=== PATIENT | female | born 1950 | race Caucasian/White ===

== ENCOUNTER 2022-04-16 23:37 | Emergency (ER) | payer MEDICARE, OTHER, SELFPAY ==
[2022-04-16 23:41] VITALS: BP 180/99; PULSE 70; RESP 22; TEMP 37.2; O2SAT 92; BMI 34.4
--- NOTE | 2022-04-16 23:54 | ECG_ITS ---
APPROVED REPORT Exam: Resting ECG HR:69 bpm ECG Measurements Heart Rate 69 AXES QRSd 133 QRS 205 QT 457 T 72 QTc 477 Conclusion ELECTRONIC VENTRICULAR PACEMAKER ABNORMAL RHYTHM ECG UNCONFIRMED REPORT Electronically signed by : Trev Basilio MD 04/17/2022 22:04:43
--- NOTE | 2022-04-17 | XR_ITS ---
PROCEDURE INFORMATION: Exam: XR Chest Exam date and time: 04/16/2022 11:56 PM Age: 71 years old Clinical indication: Shortness of breath; Prior surgery; Additional info: SOA TECHNIQUE: Imaging protocol: Radiologic exam of the chest. Views: 2 views. COMPARISON: No relevant prior studies available. FINDINGS: Tubes, catheters and devices: Pacemaker leads project over the expected location. Lungs: Bilateral apical scarring. Bibasilar opacities are most likely atelectasis. Pleural spaces: Unremarkable. No pleural effusion. No pneumothorax. Heart/Mediastinum: Enlarged pulmonary arteries likely represent chronic pulmonary arterial hypertension. Bones/joints: Old right rib fractures. IMPRESSION: Bibasilar opacities are most likely atelectasis. However, please exclude atypical infection clinically.
[2022-04-17 00:02] LABS: Basophils # 0.1 K/mm3 (0-0.2); Eosinophils # 0.1 K/mm3 (0.0-0.4); Eosinophils % 1.2 % (0.1-12.0); Hematocrit 46.8 % (37.0-47.0); Lymphocytes # 1.5 K/mm3 (0.7-4.5); Lymphocytes % 14.6 % (10-50); Mean Corpuscular HGB Conc 32.1 g/dL (31.8-35.4); Mean Corpuscular Volume 96.5 fl (81-99); Mean Platelet Volume 10.1 fl (7.4-10.4); Monocytes # 0.5 K/mm3 (0.1-1.0); Neutrophils # 8.1 K/mm3 (1.8-7.8); Neutrophils % 78.2 % (37.0-80.0); Platelet Count 254 K/mm3 (142-424); Red Blood Count 4.85 M/mm3 (4.20-5.40); White Blood Count 10.3 K/mm3 (4.8-10.8)
[2022-04-17 00:04] LABS: Chloride 106 mmol/L (98-107); Potassium 3.6 mmoL/L (3.5-5.1); Sodium 143 mmol/L (136-145)
[2022-04-17 00:07] LABS: Coronavirus 19, PCR Not Detected (NotDetected); Influenza A, PCR Not Detected (NotDetected); Influenza B, PCR Not Detected (NotDetected)
[2022-04-17 00:07] LABS: Alanine Aminotransferase 33 U/L (12-78); Albumin Level 4.1 g/dl (3.5-5.0); Albumin/Globulin Ratio 1.1 (1.1-1.8); Alkaline Phosphatase 145 U/L (38-126); Anion Gap 17.6 mEq/L (5-15); Aspartate Amino Transferase 42 U/L (14-36); Bilirubin,Total 0.4 mg/dl (0.2-1.3); Blood Urea Nitrogen 15 mg/dl (7-17); Carbon Dioxide 23 mmol/L (22.0-30.0); Creatinine Clearance Estimated 86 mL/min (50-200); Estimated Glomerular Filt Rate 61 ml/min (>60); GFR (African American) 74 ML/MIN (>60); Globulin 3.6 g/dL (1.3-3.2); Glucose 155 mg/dl (74-100); Total Protein,Serum 7.7 g/dl (6.3-8.2)
[2022-04-17 00:08] LABS: Calcium 9.7 mg/dl (8.4-10.2)
[2022-04-17 00:28] LABS: Erythrocyte Sedimentation Rate 45 mm/hr (0-30)
[2022-04-17 00:31] VITALS: PULSE 91; PULSE 92
--- NOTE | 2022-04-17 00:36 | HMH.EDSOB ---
Discharge Plan Disposition Patient Disposition: Home, Self-Care Prescriptions Prescriptions: New azithromycin [azithromycin] 250 mg tablet 250 mg PO DIRECTED Qty: 6 0RF Rx Instructions: Take two (2) tablets on day #1, then one (1) tablet day #2 thru #5 prednisone [prednisone] 20 mg tablet 20 mg PO BID Qty: 10 0RF No Action losartan 50 mg tablet 20 mg PO BID furosemide 40 mg tablet 40 mg PO DAILY Label Comments: TAKE 1 TABLET BY MOUTH ONCE DAILY ipratropium-albuterol 0.5 mg-3 mg(2.5 mg base)/3 mL solution for nebulization 1 ml INHALATION QID Label Comments: USE 1 AMPULE IN NEBULIZER 4 TIMES DAILY atorvastatin 10 mg tablet 10 mg PO DAILY sertraline 100 mg tablet 100 mg PO DAILY levothyroxine 75 mcg tablet 75 mcg PO DAILY metoprolol tartrate 50 mg tablet 50 mg PO BID zafirlukast 20 mg tablet 20 mg PO BID fluticasone propionate 50 mcg/actuation spray,suspension 2 spray INTRANASAL DAILY bupropion HCl 150 mg tablet extended release 24 hr 300 mg PO DAILY Label Comments: TAKE 1 TABLET BY MOUTH ONCE DAILY FOR 90 DAYS budesonide-formoterol [Symbicort] 160-4.5 mcg/actuation HFA aerosol inhaler 2 puff INHALATION BID Label Comments: INHALE 2 PUFFS BY MOUTH TWICE DAILY Xarelto 20 mg tablet 20 mg PO DAILY Spiriva Respimat 1.25 mcg/actuation mist 2 puff INHALATION DAILY Label Comments: INHALE 2 SPRAY(S) BY MOUTH ONCE DAILY Referrals Follow up/Referrals: Sondra Uribe APRN [Primary Care Provider] - See instructions Clinical Impressions Clinical Impression: Acute exacerbation of chronic obstructive airways disease Instructions Patient Instructions: DI for Chronic Obstructive Pulmonary Disease Discharge ED Provider: Zak Colón Resp/SOB HPI General Chief Complaint: Shortness of Breath/Dyspnea Stated Complaint: SOA; HX of COPD Time Seen by Provider: 04/17/22 00:36 Mode of Arrival: Wheelchair Source of Information: Patient, Spouse and Medical Record Limitations: No Limitations Description of Symptoms (Recalled from ER Triage Doc. by RN): pt c/o cough,congestion,SOA,fever since friday History of Present Illness over the last few days has cough and congestion with fever - hx of copd MD Complaint: shortness of breath and cough Severity: moderate Known history of: COPD and asthma Associated symptoms: pain with inspiration Treatment prior to arrival: none Related Data Home oxygen amount: none Home Medications Medication Instructions Recorded Confirmed atorvastatin 10 mg tablet 10 mg PO DAILY High cholesterol 04/16/22 04/17/22 budesonide-formoterol HFA 160 2 puff inhalation BID Breathing 04/16/22 04/17/22 mcg-4.5 mcg/actuation aerosol problems inhaler (Symbicort) bupropion HCl 150 mg 24 hr tablet, 300 mg PO DAILY deprerssion 04/16/22 04/17/22 extended release fluticasone propionate 50 2 spray intranasal DAILY Allergy 04/16/22 04/17/22 mcg/actuation nasal symptoms spray,suspension furosemide 40 mg tablet 40 mg PO DAILY Fluid 04/16/22 04/17/22 ipratropium 0.5 mg-albuterol 3 mg 1 ml inhalation QID Breathing 04/16/22 04/17/22 (2.5 mg base)/3 mL nebulization problems soln levothyroxine 75 mcg tablet 75 mcg PO DAILY thyorid 04/16/22 04/17/22 losartan 50 mg tablet 20 mg PO BID High blood pressure 04/16/22 04/17/22 metoprolol tartrate 50 mg tablet 50 mg PO BID High blood pressure 04/16/22 04/17/22 rivaroxaban 20 mg tablet (Xarelto) 20 mg PO DAILY Blood thinner 04/16/22 04/17/22 sertraline 100 mg tablet 100 mg PO DAILY Depression 04/16/22 04/17/22 tiotropium bromide 1.25 2 puff inhalation DAILY Breathing 04/16/22 04/17/22 mcg/actuation mist for inhalation problems (Spiriva Respimat) zafirlukast 20 mg tablet 20 mg PO BID Asthma 04/16/22 04/17/22 Previous Rx's Medication Instructions Recorded azithromycin 250 mg tablet 250 mg PO DIRECTED #6 tabs 04/17/22 pre
[2022-04-17 01:05] LABS: Troponin I < 0.01 ng/ml (0.00-0.034)
[2022-04-17 01:36] VITALS: BP 167/78; PULSE 90; RESP 20; TEMP 37.2; O2SAT 96
[2022-04-17 02:10] LABS: Procalcitonin 0.097 ng/mL (0.0-2.0)
== END 2022-04-17 02:01 | disposition home or self-care (01) ==
PROVIDERS: Emergency Provider Emergency Medicine; PCP Nurse Practitioner Family
DX: J44.1 Chronic obstructive pulmonary disease with (acute) exacerbation (principal); R01.1 Cardiac murmur, unspecified; Z20.822 Contact with and (suspected) exposure to COVID-19; Z79.01 Long term (current) use of anticoagulants; Z79.51 Long term (current) use of inhaled steroids; Z79.52 Long term (current) use of systemic steroids; Z79.899 Other long term (current) drug therapy; Z88.8 Allergy status to other drugs, medicaments and biological substances; Z95.0 Presence of cardiac pacemaker; Z87.891 Personal history of nicotine dependence
CPT/HCPCS: 71046; 80053; 84145; 84484; 85025; 85651; 93005; 96361; 96374; 99284; C9803; J0696; U0003; U0005

== ENCOUNTER 2022-04-28 18:35 | Observation (INO) | payer MEDICARE, OTHER, SELFPAY ==
[2022-04-28 18:36] VITALS: BP 138/76; PULSE 70; RESP 18; TEMP 36.5; O2SAT 96; BMI 37.5
[2022-04-28 19:58] VITALS: BMI 37.5
--- NOTE | 2022-04-28 19:59 | CT_ITS ---
PROCEDURE INFORMATION: Exam: CT Head Without Contrast Exam date and time: 04/28/2022 8:01 PM Age: 71 years old Clinical indication: Weakness, extremity and other: Lower legs weakness; Additional info: Stroke symptoms lower leg weakness TECHNIQUE: Imaging protocol: Computed tomography of the head without contrast. Radiation optimization: All CT scans at this facility use at least one of these dose optimization techniques: automated exposure control; mA and/or kV adjustment per patient size (includes targeted exams where dose is matched to clinical indication); or iterative reconstruction. COMPARISON: No relevant prior studies available. FINDINGS: Brain: Mild-moderate bilateral white matter hypodensities which are nonspecific but most commonly associated with chronic microvascular ischemia in this age group. The IACs are grossly normal. No extra-axial fluid collections. No evidence of acute intracranial hemorrhage. No CT evidence of large territory acute or subacute intracranial ischemia/infarct. No intracranial mass lesions. No midline shift or herniation. Cerebral ventricles: Mild compensatory ventriculomegaly secondary to central atrophy. Pituitary gland and sella: The sella is grossly normal. Paranasal sinuses: Mucosal thickening in the maxillary sinuses suggesting chronic sinus inflammatory disease. No fluid levels. Mastoid air cells: Visualized mastoid air cells are clear. Orbital cavities: No acute intraorbital findings. Prior bilateral ocular lens extraction. Bones/joints: No fractures. There is a 9 mm indeterminate lesion in the left parietal calvarium eroding the outer table, with a few scattered nonspecific small subcentimeter additional intra diploic foci elsewhere in the calvarium. Myeloma could produce this appearance, or possibly metastasis. Correlate with SPEP, consider nonemergent bone scan to exclude metastasis, particularly if there is history of primary malignancy. Hyperostosis frontalis interna incidentally noted. Soft tissues: The scalp and visualized soft tissues demonstrate no acute abnormality. Vasculature: Moderate calcific atherosclerosis. No asymmetric vascular hyperdensities suggestive of thrombosis are identified. Other findings: Mild-moderate generalized atrophy. Arnold-white differentiation is well maintained. IMPRESSION: 1. No acute intracranial process. No intracranial hemorrhage or mass effect. 2. Atrophy and nonspecific white matter hypodensities, most commonly related to chronic microvascular ischemia in this age group. 3. Moderate calcific atherosclerosis. 4. Scattered subcentimeter lytic bone lesions, largest 9 mm in the left parietal distribution. These are nonspecific but could be seen with myeloma or metastasis, please see recommendations above.
--- NOTE | 2022-04-28 20:27 | XR_ITS ---
PROCEDURE INFORMATION: Exam: XR Chest Exam date and time: 04/28/2022 8:42 PM Age: 71 years old Clinical indication: Other: Leg weakness TECHNIQUE: Imaging protocol: Radiologic exam of the chest. Views: 1 view. COMPARISON: CR XR CHEST 2V 04/16/2022 11:56 PM FINDINGS: Tubes, catheters and devices: Biventricular cardiac pacemaker again noted without gross hardware complication or change. Lungs: Moderately dilated central pulmonary vasculature bilaterally, unchanged, suggesting moderate pulmonary arterial hypertension. No gross pulmonary infiltrates or edema pattern. Poorly delineated cardiac apex again noted, with indistinct left lateral costophrenic angle probably relates to periapical fat pad and adjacent atelectasis, accentuated by lordotic projection on the current study. Peripheral left basilar pneumonia considered less likely. Pleural spaces: No definite pleural effusion. No pneumothorax. Heart/Mediastinum: Heart size normal. No tracheal/mediastinal shift. Bones/joints: No acute osseous abnormalities are identified. Old healed fracture right posterolateral 8th rib again noted. IMPRESSION: 1. No acute thoracic process. No significant change from 04/16/2022. 2. Moderate central pulmonary arterial dilatation consistent with pulmonary arterial hypertension. 3. Poorly delineated cardiac apex and left lateral costophrenic angle probably relates to periapical fat pad or subsegmental atelectasis, pneumonia considered less likely.
[2022-04-28 20:30] VITALS: BP 135/74; PULSE 69; O2SAT 92
[2022-04-28 20:37] LABS: Basophils # 0.1 K/mm3 (0-0.2); Basophils % 0.7 % (0.1-2.0); Eosinophils # 0.1 K/mm3 (0.0-0.4); Eosinophils % 0.4 % (0.1-12.0); Hematocrit 47.9 % (37.0-47.0); Hemoglobin 15.8 g/dL (12.2-16.2); Lymphocytes # 2.4 K/mm3 (0.7-4.5); Lymphocytes % 11.5 % (10-50); Mean Corpuscular HGB Conc 32.9 g/dL (31.8-35.4); Mean Corpuscular Hemoglobin 31.5 pg (27.0-31.2); Mean Corpuscular Volume 95.8 fl (81-99); Mean Platelet Volume 9.8 fl (7.4-10.4); Monocytes # 0.9 K/mm3 (0.1-1.0); Monocytes % 4.3 % (1.7-9.3); Platelet Count 329 K/mm3 (142-424); Red Cell Distribution Width 14.9 % (11.5-17.5)
[2022-04-28 20:45] LABS: Alanine Aminotransferase 25 U/L (12-78); Albumin Level 4.4 g/dl (3.5-5.0); Albumin/Globulin Ratio 1.2 (1.1-1.8); Alkaline Phosphatase 145 U/L (38-126); Anion Gap 18.8 mEq/L (5-15); Aspartate Amino Transferase 32 U/L (14-36); Bilirubin,Total 0.6 mg/dl (0.2-1.3); Blood Urea Nitrogen 25 mg/dl (7-17); Calcium 9.7 mg/dl (8.4-10.2); Carbon Dioxide 25 mmol/L (22.0-30.0); Chloride 103 mmol/L (98-107); Creatinine Clearance Estimated 57 mL/min (50-200); Estimated Glomerular Filt Rate 34 ml/min (>60); GFR (African American) 41 ML/MIN (>60); Globulin 3.6 g/dL (1.3-3.2); Glucose 123 mg/dl (74-100); Potassium 3.8 mmoL/L (3.5-5.1); Sodium 143 mmol/L (136-145)
[2022-04-28 20:48] LABS: White Blood Count 20.4 K/mm3 (4.8-10.8)
[2022-04-28 20:50] LABS: MANUAL DIFFERENTIAL MANUAL DIFFERENTIAL (MANUAL DIFF)
[2022-04-28 20:51] LABS: C-Reactive Protein 9.1 mg/L (0-4)
[2022-04-28 20:58] LABS: Lymphocytes % 18 % (10-50); Monocytes % 3 % (2-9); Neutrophils % 74 % (42-76); Total Cells Counted 100
[2022-04-28 20:59] LABS: Platelet Estimate Normal; RBC Morphology Normal
[2022-04-28 21:05] LABS: Procalcitonin 0.082 ng/mL (0.0-2.0)
[2022-04-28 21:11] LABS: Erythrocyte Sedimentation Rate 19 mm/hr (0-30)
--- NOTE | 2022-04-28 21:27 | PC.NURSE ---
Pt ambulatory to bathroom per 2 person assist. Pt very unsteady on her feet at this time.
[2022-04-28 21:28] LABS: Coronavirus 19, PCR Not Detected (NotDetected); Influenza A, PCR Not Detected (NotDetected); Influenza B, PCR Not Detected (NotDetected); Microscopic, Urine URINE MICROSCOPIC (MICROSCOPIC)
[2022-04-28 21:31] VITALS: BP 132/64; PULSE 70; O2SAT 96
[2022-04-28 21:32] LABS: Appearance,Urine CLEAR (Clear); Blood, Urine TRACE-I (Negative); Color,Urine YELLOW (Yellow); Glucose,Urine (UA) Negative (Negative); Ketones,Urine TRACE (Negative); Leukocyte Esterase,Urine 1+ (Negative); Nitrate,Urine Negative (Negative); PH,Urine 5.5 (5.0-8.5); Protein,Urine 2+ (Negative); Specific Gravity, Urine >= 1.030 (1.005-1.030); Urobilinogen,Urine 0.2 EU/dl (0.2)
[2022-04-28 21:34] LABS: Bilirubin,Urine 1+ (Negative)
[2022-04-28 21:44] LABS: Bacteria,Urine 1+ /lpf; RBC,Urine Occasional #/hpf (0-3); Squamous Epithelial Cell,Urine Occasional #/hpf (0-5)
[2022-04-28 22:01] VITALS: BP 112/49; PULSE 70; O2SAT 94
[2022-04-28 22:37] LABS: Lactic Acid 1.2 mmol/L (0.7-2.1)
--- NOTE | 2022-04-28 23:00 | HMH.EDWEAK ---
Discharge Plan Disposition Patient Disposition: Admitted as Observation Prescriptions Prescriptions: No Action losartan 50 mg tablet 20 mg PO BID furosemide 40 mg tablet 40 mg PO DAILY Label Comments: TAKE 1 TABLET BY MOUTH ONCE DAILY ipratropium-albuterol 0.5 mg-3 mg(2.5 mg base)/3 mL solution for nebulization 1 ml INHALATION QID Label Comments: USE 1 AMPULE IN NEBULIZER 4 TIMES DAILY atorvastatin 10 mg tablet 10 mg PO DAILY sertraline 100 mg tablet 100 mg PO DAILY levothyroxine 75 mcg tablet 75 mcg PO DAILY metoprolol tartrate 50 mg tablet 50 mg PO BID zafirlukast 20 mg tablet 20 mg PO BID fluticasone propionate 50 mcg/actuation spray,suspension 2 spray INTRANASAL DAILY bupropion HCl 150 mg tablet extended release 24 hr 300 mg PO DAILY Label Comments: TAKE 1 TABLET BY MOUTH ONCE DAILY FOR 90 DAYS budesonide-formoterol [Symbicort] 160-4.5 mcg/actuation HFA aerosol inhaler 2 puff INHALATION BID Label Comments: INHALE 2 PUFFS BY MOUTH TWICE DAILY Xarelto 20 mg tablet 20 mg PO DAILY Spiriva Respimat 1.25 mcg/actuation mist 2 puff INHALATION DAILY Label Comments: INHALE 2 SPRAY(S) BY MOUTH ONCE DAILY Referrals Follow up/Referrals: Provider,Referral, MD [Primary Care Provider] - See instructions Clinical Impressions Clinical Impression: Acute UTI (urinary tract infection), Hypothyroidism, Vertigo, Pacemaker Discharge ED Provider: Zak Colón Weakness HPI General Chief complaint: Weakness Stated complaint: AO 04/28 @1735 Time Seen by Provider: 04/28/22 23:00 Mode of Arrival: Ambulatory Source of Information: Patient, Spouse and Medical Record Limitations: No Limitations Description of Symptoms (Recalled from ER Triage Doc. by RN): pt states she went to leave bed and her feet kept slipping out from under her. pt state that she finaly got up and fell into a side table. pt states that she has a hx of stroke and it felt alot like this. the pt also states she has been sick for a few weeks now and hasnt been out of bed much History of Present Illness HPI Narrative: pt with dec ambulation and weakness with dizzyness - hx of cva - had recent copd exacerbation- no recent hx of cancer and had cva a few yrs ago Complaint: generalized weakness Onset (ago): hour(s) Duration: intermittent Migration: none Severity: moderate Exacerbating factors: movement Associated symptoms: denies other symptoms Related Data Home Medications Medication Instructions Recorded Confirmed atorvastatin 10 mg tablet 10 mg PO DAILY High cholesterol 04/16/22 04/28/22 budesonide-formoterol HFA 160 2 puff inhalation BID Breathing 04/16/22 04/28/22 mcg-4.5 mcg/actuation aerosol problems inhaler (Symbicort) bupropion HCl 150 mg 24 hr tablet, 300 mg PO DAILY deprerssion 04/16/22 04/28/22 extended release fluticasone propionate 50 2 spray intranasal DAILY Allergy 04/16/22 04/28/22 mcg/actuation nasal symptoms spray,suspension furosemide 40 mg tablet 40 mg PO DAILY Fluid 04/16/22 04/28/22 ipratropium 0.5 mg-albuterol 3 mg 1 ml inhalation QID Breathing 04/16/22 04/28/22 (2.5 mg base)/3 mL nebulization problems soln levothyroxine 75 mcg tablet 75 mcg PO DAILY thyorid 04/16/22 04/28/22 losartan 50 mg tablet 20 mg PO BID High blood pressure 04/16/22 04/28/22 metoprolol tartrate 50 mg tablet 50 mg PO BID High blood pressure 04/16/22 04/28/22 rivaroxaban 20 mg tablet (Xarelto) 20 mg PO DAILY Blood thinner 04/16/22 04/28/22 sertraline 100 mg tablet 100 mg PO DAILY Depression 04/16/22 04/28/22 tiotropium bromide 1.25 2 puff inhalation DAILY Breathing 04/16/22 04/28/22 mcg/actuation mist for inhalation problems (Spiriva Respimat) zafirlukast 20 mg tablet 20 mg PO BID Asthma 04/16/22 04/28/22 Allergies Allergy/AdvReac Type Severity Reaction Status Date / Time levofloxacin [From [facility]] Allergy Verified
--- NOTE | 2022-04-28 23:11 | ECG_ITS ---
APPROVED REPORT Exam: Resting ECG HR:69 bpm ECG Measurements Heart Rate 69 AXES QRSd 137 QRS 188 QT 474 T 30 QTc 494 Conclusion ELECTRONIC VENTRICULAR PACEMAKER ABNORMAL RHYTHM ECG UNCONFIRMED REPORT Electronically signed by : Terv Basilio MD 04/29/2022 19:45:36
[2022-04-29] VITALS (10 sets, daily range): BP systolic 125–177; BP diastolic 63–96; PULSE 69–80; RESP 16–21; TEMP 36.4–36.7; O2SAT 94–96; BMI 37.0
--- NOTE | 2022-04-29 00:02 | EXP.HP ---
History of Present Illness *Admission Date: 04/29/22 *Reason for visit:: Vertigo, difficulty ambulating *History of present illness: Ms. Crenshaw is a 71-year-old female with a past medical history that is positive for H/o CVA without residual, Atrial Fibrillation on chronic anticoagulation, h/o Melanoma, Hypertension, Hypothyroidism and Hyperlipidemia. She presents to [facility] due to an acute onset of difficulty walking and dizziness that occurred prior to presentation. She reports with her history of CVA she was concerned so she came into the ER immediately for evaluation. In the ER, the patient underwent a CT of the head without contrast that showed a 9 mm indeterminate lesion in the left parietal calvarium eroding the outter table. Urinalysis showed 1 plus bacteria, 1 plus leukoesterase and was negative for nitrates. CBC showed a WBC of 20.4, CRP was elevated at 9.1. Creatinine was elevated at 1.50. The patient will be admitted with initial impression: Abnormal CT head, Vertigo, UTI and JAZZ. MRI will be obtained for further evaluation, neuro checks will be performed. The patient will be given Fluids and antibiotics. The plan of care was discussed with the patient at bedside in the ER prior to admission. The patient verbalized understanding and agreement with the plan of care. [facility] Medical History (Updated 04/29/22 @ 15:25 by Pinky López MD) Atrial fibrillation COPD (chronic obstructive pulmonary disease) CVA (cerebral vascular accident) Hyperlipidemia Hypertension Hypothyroidism Hypothyroidism Melanoma Surgical History (Updated 04/29/22 @ 01:54 by Magalis Suazo RN) H/O dilation and curettage H/O laparoscopy H/O partial thyroidectomy H/O: hysterectomy History of tonsillectomy Previous back surgery Tubal ligation status Family History (Updated 04/29/22 @ 01:52 by Magalis Suazo RN) Kidney disease Sister Lung cancer Father Parkinsons Mother Social History (Updated 04/29/22 @ 01:54 by Magalis Suazo RN) Smoking Status: Former smoker alcohol intake: never current occupational status: retired Travel in the last 8 weeks: None Review of Systems Review of Systems Review of systems:: pertinent systems reviewed and negative unless documented below Constitutional Constitutional: Reports system reviewed and no additional complaints, except as documented Eyes Eyes: Reports system reviewed and no additional complaints, except as documented ENT Ears, Nose, Mouth, and Throat: Reports system reviewed and no additional complaints, except as documented, Reports disequilibrium and Reports dizziness *Cardiovascular Cardiovascular: Reports system reviewed and no additional complaints, except as documented *Respiratory Respiratory: Reports system reviewed and no additional complaints, except as documented *Gastrointestinal Gastrointestinal: Reports system reviewed and no additional complaints, except as documented *Genitourinary Genitourinary: Reports system reviewed and no additional complaints, except as documented *Musculoskeletal Musculoskeletal: Reports system reviewed and no additional complaints, except as documented and Reports abnormal gait Integumentary/Breasts Skin/Breast: Reports system reviewed and no additional complaints, except as documented *Neurologic Neurologic: Reports abnormal gait, Reports disequilibrium, Reports dizziness and Reports lack of coordination Psychiatric Psychiatric: Reports system reviewed and no additional complaints, except as documented Endocrine Endocrine: Reports system reviewed and no additional complaints, except as documented Hematologic/Lymphatic Hematologic/Lymphatic: Reports system reviewed and no additional complaints, except as documented Allergic/Immunologic Allergic/Immunologic: Reports system reviewed and no additional complaints, except as documented Meds Home Medications and Allergies Home Medications Medication Instructions Rec
--- NOTE | 2022-04-29 01:18 | PC.NURSE ---
PT ARRIVED TO FLOOR VIA WHEELCHAIR AT THIS TIME
--- NOTE | 2022-04-29 07:12 | PC.NURSE ---
Addendum entered by Magalis Suazo RN 04/29/22 07:34: Pt is supposed to have an MRI today. Pts home meds locked in drawer. Original Note: No acute changes since previous assessment. IV infusing per order. Pt has rested in intervals. No complaints or needs voiced by pt at this time. Call light in reach. Bed alarm on for safety. Pt is x1 assist with ambulating.
--- NOTE | 2022-04-29 07:15 | HMH.PHAINT1 ---
Pharmacy Intervention Comments: Medication reconciliation completed via external fill history, chart review, and patient interview. -Brandy Oates, PharmD Candidate 2022
--- NOTE | 2022-04-29 13:28 | CT_ITS ---
FINAL REPORT TECHNIQUE: Axial images were obtained from the lung apex to the mid abdomen by computed tomography. Coronal reformatted images were obtained. This study was performed with techniques to keep radiation doses as low as reasonably achievable, (ALARA). Individualized dose reduction techniques using automated exposure control or adjustment of mA and/or kV according to the patient''s size were employed. CLINICAL HISTORY: suspect malignancy FINDINGS: A left subclavian pacemaker is present. There is no axillary adenopathy. There is no hilar or mediastinal adenopathy. Heart size is normal. There are postoperative changes at the atrial septum. There is no pericardial or pleural effusion. Limited images of the upper abdomen are unremarkable. No pulmonary mass or suspicious nodule is identified. There are several small calcified granulomas. There is mild scarring in the left lung base. IMPRESSION: No pulmonary mass or suspicious nodule is identified. Reviewed, Interpreted and Dictated by Hi Payan III, MD Transcribed by Renee Lopez Authenticated and . [facility]
--- NOTE | 2022-04-29 13:28 | CT_ITS ---
FINAL REPORT CLINICAL HISTORY: suspect malignancy FINDINGS: Axial CT images of the abdomen and pelvis were obtained without intravenous contrast. Coronal reformatted images were also obtained.This study was performed with techniques to keep radiation doses as low as reasonably achievable (ALARA). Individualized dose reduction techniques using automated exposure control or adjustment of mA and/or kV according to the patient's size were employed. Abdomen: There is a less than 3 mm nonobstructing left renal stone. There is no hydronephrosis. There is a gallstone within the gallbladder. There is no biliary ductal dilatation. The liver, spleen and pancreas have an unremarkable, unenhanced appearance. No inflammatory process is identified. Pelvis: The appendix is normal in appearance. There is no evidence of ureteral dilation or ureteral stone.No mass or abnormal fluid collection is identified. There are postoperative changes from hysterectomy. There are postoperative changes in the lower lumbar spine from fusion at L4-5. IMPRESSION: No mass, adenopathy or abnormal fluid collection is identified. Less than 3 mm nonobstructing left renal stone. Gallstone in the gallbladder. Reviewed, Interpreted and Dictated by Hi Payan III, MD Transcribed by Renee Lopez Authenticated and [facility]
--- NOTE | 2022-04-29 15:58 | PC.NURSE ---
STOP IVMF NOW PER OSCAR
--- NOTE | 2022-04-29 18:30 | PC.NURSE ---
PT HAS DONE WELL THIS SHIFT. X1 C/O NAUSEA TREATED PER AUG. PT STILL C/O OF DIZZINESS, X1 ASSIST WITH AMBULATING. HOME MEDS VERIFIED WITH PHARMACY AND IN THE [facility], REMAINDER OF MEDS SENT HOME WITH . LUNGS DIMINISHED T/O. PT TEARFUL AT TIMES. AT BEDSIDE. CB WITHIN REACH. NO CONCERNS VOICED AT THIS TIME.
[2022-04-30 03:49] VITALS: BP 132/71; PULSE 70; RESP 16; TEMP 36.6; O2SAT 96
--- NOTE | 2022-04-30 04:27 | PC.NURSE ---
no changes since previous assessment. pt ambulates to bathroom with assistance, appears unsteady. she is a&oX4.
[2022-04-30 06:00] VITALS: BMI 37.5
[2022-04-30 06:05] VITALS: PULSE 70; PULSE 74
[2022-04-30 07:01] LABS: Basophils # 0.1 K/mm3 (0-0.2); Basophils % 0.5 % (0.1-2.0); Eosinophils # 0.1 K/mm3 (0.0-0.4); Eosinophils % 0.9 % (0.1-12.0); Hematocrit 39.1 % (37.0-47.0); Hemoglobin 12.4 g/dL (12.2-16.2); Lymphocytes # 2.4 K/mm3 (0.7-4.5); Lymphocytes % 24.9 % (10-50); Mean Corpuscular HGB Conc 31.7 g/dL (31.8-35.4); Mean Corpuscular Hemoglobin 31.5 pg (27.0-31.2); Mean Corpuscular Volume 99.3 fl (81-99); Mean Platelet Volume 9.7 fl (7.4-10.4); Monocytes # 0.6 K/mm3 (0.1-1.0); Monocytes % 6.1 % (1.7-9.3); Neutrophils # 6.5 K/mm3 (1.8-7.8); Neutrophils % 67.6 % (37.0-80.0); Platelet Count 187 K/mm3 (142-424); Red Blood Count 3.94 M/mm3 (4.20-5.40); White Blood Count 9.6 K/mm3 (4.8-10.8)
[2022-04-30 07:18] LABS: Alanine Aminotransferase 22 U/L (12-78); Albumin Level 3.4 g/dl (3.5-5.0); Albumin/Globulin Ratio 1.1 (1.1-1.8); Alkaline Phosphatase 105 U/L (38-126); Anion Gap 13.8 mEq/L (5-15); Aspartate Amino Transferase 34 U/L (14-36); Bilirubin,Total 0.3 mg/dl (0.2-1.3); Blood Urea Nitrogen 22 mg/dl (7-17); Calcium 8.7 mg/dl (8.4-10.2); Carbon Dioxide 25 mmol/L (22.0-30.0); Chloride 107 mmol/L (98-107); Creatinine Clearance Estimated 71 mL/min (50-200); Estimated Glomerular Filt Rate 44 ml/min (>60); GFR (African American) 53 ML/MIN (>60); Globulin 3.1 g/dL (1.3-3.2); Glucose 116 mg/dl (74-100); Magnesium 1.8 mg/dl (1.6-2.3); Potassium 3.8 mmoL/L (3.5-5.1); Sodium 142 mmol/L (136-145); Total Protein,Serum 6.5 g/dl (6.3-8.2)
[2022-04-30 07:47] VITALS: BP 141/70; PULSE 70; RESP 17; TEMP 36.5; O2SAT 95
--- NOTE | 2022-04-30 07:50 | HMH.PTEV ---
Physical Therapy Evaluation Rehab PT IP Evaluation Start: 04/30/22 07:13 Freq: ONCE Status: Active Protocol: Document 04/30/22 07:44 CECILIOTEJINDER (Rec: 04/30/22 07:50 CHIQUIS [id number]) Subjective/History History History Ms. Crenshaw is a 71-year-old female with a past medical history that is positive for H /o CVA without residual, Atrial Fibrillation on chronic anticoagulation, h/o Melanoma , Hypertension, Hypothyroidism and Hyperlipidemia. She presents to [facility] due to an acute onset of difficulty walking and dizziness that occurred prior to presentation. She reports with her history of CVA she was concerned so she came into the ER immediately for evaluation. In the ER, the patient underwent a CT of the head without contrast that showed a 9 mm indeterminate lesion in the left parietal calvarium eroding the outter table. Copied from H&P Subjective Subjective Pt sitting EOB upon entering bed - pt has no significant complaints does state she gets dizzy when she changes position, and doesn't really walk well Rehab PT IP Eval Objective Appearance Patient Behavior Appropriate,Cooperative Patient Orientation Place,Name,Birthday,Year, Situation Difficulty following instructions none Speech Pattern Clear,Appropriate Ambulation Patient Able to Ambulate Yes Ambulation Observation IP General Gait Pattern Observation Wide Based Gait,Ataxic Gait Ambulation Distance (feet) 60 Ambulation Assistive Device None Ambulation Ability Supervision/Stand by,Contact Guard/Hand Hold Balance Ability to Arise Able, uses arms to help Sitting Balance Steady, safe Standing Balance Steady, wide stance Dynamic Sitting Balance Ability Good Dynamic Standing Balance Ability Fair Transfers Bed Transfer Ability Independent Chair Transfer Ability Indep
--- NOTE | 2022-04-30 09:14 | HMH.OTEV ---
OT Inpatient Evaluation Rehab OT IP Evaluation Start: 04/30/22 07:14 Freq: ONCE Status: Complete Protocol: Document 04/30/22 09:09 RUY (Rec: 04/30/22 09:13 [facility] [id number]) Rehab OT IP Assessment Subjective History Pt oriented x 4 on arrival. Pt agreeable to engage in therapy evaluation. Pt was admitted via ED on 04/29/22 due to vertigo, dizziness, and difficulty walking. Pt reports prior to being in the hospital, pt lived at home with her . Pt claims she was independent with all ADLs and IADLs. Pt also still drove. She did not use any type of AE during ambulation. Pt has a past medical history of: Atrial fibrillation COPD (chronic obstructive pulmonary disease) CVA (cerebral vascular accident) Hyperlipidemia Hypertension Hypothyroidism Hypothyroidism Melanoma Subjective I feel better this morning. Objective Patient Orientation Person,Place,Birthday,Year Upper Extremity Gross ROM WFL Bed Mobility bed mobility-scooting,bed mobility - supine/sit,bed mobility - rolling Assist Level Independent Transfer Training Sit/Stand Transfer Assist Level Supervision/Stand by Chair Transfer Ability Supervision/Stand by Chair Transfer Technique Sit to/from Ambulatory Lower Body Dressing Ability Independent Performing Toilet Hygiene Ability Independent Overall Commode/Toilet Transfer Ability Standby Assistance Commode/Toilet Transfer Technique Sit to/from Ambulatory Rehab OT IP prob,goals,plan Problems Date of Evaluation: 04/30/22 Rehab Potential Rehab Potential Innapropriate for Skilled Therapy Discharge Plan OT Discharge Plan At this time, pt appears to be at baseline with functional transfers and ADL independence . Pt can return home with and daughter once
[2022-04-30 10:11] VITALS: PULSE 71
--- NOTE | 2022-04-30 12:48 | EXP.DC.SUM ---
General Admission date:: 04/29/22 Discharge date: 04/30/22 HPI HPI HPI: Ms. Crenshaw is a 71-year-old female with a past medical history that is positive for H/o CVA without residual, Atrial Fibrillation on chronic anticoagulation, h/o Melanoma, Hypertension, Hypothyroidism and Hyperlipidemia. She presents to [facility] due to an acute onset of difficulty walking and dizziness that occurred prior to presentation. She reports with her history of CVA she was concerned so she came into the ER immediately for evaluation. In the ER, the patient underwent a CT of the head without contrast that showed a 9 mm indeterminate lesion in the left parietal calvarium eroding the outter table. Urinalysis showed 1 plus bacteria, 1 plus leukoesterase and was negative for nitrates. CBC showed a WBC of 20.4, CRP was elevated at 9.1. Creatinine was elevated at 1.50. The patient will be admitted with initial impression: Abnormal CT head, Vertigo, UTI and JAZZ. MRI will be obtained for further evaluation, neuro checks will be performed. The patient will be given Fluids and antibiotics. The plan of care was discussed with the patient at bedside in the ER prior to admission. The patient verbalized understanding and agreement with the plan of care. Hospital Course Hospital Course Hospital Course: Patient was evaluated emergency department for acute dizziness and inability to walk. Incidental CT findings had demonstrated multiple lytic lesions and a hyperostotic lesion in the skull. Findings were concerning for myeloma versus possible metastasis or Paget's disease of the bone. CT abdomen pelvis was performed to evaluate for malignancy and no mass was found. Was a less than 3 mm nonobstructing left renal stone and gallstone in gallbladder. Chest x-ray showed no mass or concerning nodule. Findings were discussed with patient and oncology was consulted while admitted. Oncology recommended additional follow-up with for metastatic disease with nuclear bone scan and myeloma studies/SPEP UPE to be perfomed on an outpatient basis. Patient was scheduled for follow-up with oncology and further testing. Exam Data for Last 24 hours Vital signs and Labs for Last 24 Hours: Temp Pulse Resp BP Pulse Ox 97.7 F 71 17 141/70 H 95 04/30/22 07:47 04/30/22 10:11 04/30/22 07:47 04/30/22 07:47 04/30/22 07:47 Laboratory Results - last 24 hr 04/30/22 06:51: WBC 9.6 D, RBC 3.94 L, Hgb 12.4, Hct 39.1, MCV 99.3 H, MCH 31.5 H, MCHC 31.7 L, RDW 15.0, Plt Count 187 D, MPV 9.7, Neut % (Auto) 67.6, Lymph % (Auto) 24.9, [place] % (Auto) 6.1, Eos % (Auto) 0.9, Baso % (Auto) 0.5, Neut # (Auto) 6.5, Lymph # (Auto) 2.4, Wythe # (Auto) 0.6, Eos # (Auto) 0.1, Baso # (Auto) 0.1 04/30/22 06:51: Sodium 142, Potassium 3.8, Chloride 107, Carbon Dioxide 25, Anion Gap 13.8, BUN 22 H, Creatinine 1.20 H, Estimated Creat Clear 71, Estimated GFR 44 L, Est GFR ( Amer) 53 L D, Glucose 116 H, Calcium 8.7, Magnesium 1.8, Total Bilirubin 0.3, AST 34, ALT 22, Alkaline Phosphatase 105, Total Protein 6.5, Albumin 3.4 L D, Globulin 3.1, Albumin/Globulin Ratio 1.1 I & O for Last 24 hours: Intake & Output 04/27/22 04/28/22 04/29/22 04/30/22 23:59 23:59 23:59 23:59 Intake Total 1160 / 1160 420 / 420 Output Total 0 / 0 0 / 0 Balance 1160 / 1160 420 / 420 Weight 108.862 kg 107 kg 108.55 kg Microbiology Reports for the Last 24 Hours: Microbiology 04/28/22 22:23 Blood Blood Culture - Preliminary 04/28/22 21:18 Urine,Clean Catch Urine Culture - Preliminary Constitutional Constitutional: no acute distress Comments: Anxious *Routine HEENT Exam Head: Present normocephalic and atraumatic ENT: Present mucous membranes moist *Routine Respiratory Exam Respiratory: Present CTA bilaterally and normal respiratory effort *Routine Cardiovascular Exam Cardiovascular: Present RRR, Normal S1 and Normal S2 *Routine Abdominal Exam Abdominal: Present soft and
--- NOTE | 2022-04-30 13:08 | PC.NURSE ---
is aware of the aerobic blood culture coming back as staph species
--- NOTE | 2022-04-30 13:43 | HMH.PHAINT1 ---
Pharmacy Intervention Comments: Discharge counseling completed at bedside with patient and . Discussed new medication (cefdinir) and continued medications. Overviewed indication for cefdinir (UTI) and possible side effects/mitigation strategies. Patient and verbalize understanding and have no questions or concerns at this time.
[2022-04-30 19:17] LABS: Albumin 3.2 g/dL (2.9-4.4); Alpha-1-Globulin 0.3 g/dL (0.0-0.4); Alpha-2-Globulin 0.8 g/dL (0.4-1.0); Calcium, Ionized 5.4 mg/dL (4.5-5.6); Protein, Total 6.4 g/dL (6.0-8.5)
[2022-05-01 08:15] LABS: Peripheral Smear Review Scanned Result
[2022-05-01 15:33] LABS: Immunoglobulin A, Qn 403 mg/dL (64-422); Immunoglobulin G, Qn 988 mg/dL (586-1602); Immunoglobulin M, Qn 133 mg/dL (26-217)
--- NOTE | 2022-05-01 16:00 | CARE MANAGER ---
Spoke with patient for post-discharge phone interview, she states that she is doing well and has no issues at this time.
[2022-05-06 13:34] LABS: Albumin, U 51.2 % (.); Alpha-1-Globulin, U 1.3 % (.); Alpha-2-Globulin, U 8.4 % (.); Beta Globulin, U 18.6 % (.); Gamma Globulin, U 20.6 % (.); M-Spike, % Not Observed % (Not Observed); Protein,Total,Urine 129.1 mg/dL (Not Estab.)
== END 2022-04-30 13:59 | disposition home or self-care (01) ==
LOC: ER 23:23 → 2ND 04-29 00:37
PROVIDERS: Internal Medicine Adolescent Medicine; Nurse Practitioner Family; Admitting Provider Student in an Organized Health Care Education/Training Program; Emergency Provider Emergency Medicine; Visit Provider Student in an Organized Health Care Education/Training Program
DX: N17.9 Acute kidney failure, unspecified (principal); I48.91 Unspecified atrial fibrillation; Z79.01 Long term (current) use of anticoagulants; E78.5 Hyperlipidemia, unspecified; I10 Essential (primary) hypertension; E03.9 Hypothyroidism, unspecified; N39.0 Urinary tract infection, site not specified; C90.00 Multiple myeloma not having achieved remission; C44.99 Other specified malignant neoplasm of skin, unspecified; Z79.899 Other long term (current) drug therapy; Z20.822 Contact with and (suspected) exposure to COVID-19
CPT/HCPCS: G0378; 36415; 70450; 71045; 71250; 74176; 80053; 81001; 82330; 82784; 83605; 83735; 84145; 84155; 84156; 84165; 84166; 85007; 85025; 85651; 86140; 86334; 87040; 87077; 87086; 87088; 87186; 93005; 94640; 97166; 99285; C9803; J0696; J2405; U0003; U0005

== ENCOUNTER → 2022-05-13 07:54 | Outpatient (CLI) | payer MEDICARE, OTHER, SELFPAY ==
--- NOTE | 2022-05-13 08:03 | NM_ITS ---
FINAL REPORT CLINICAL HISTORY: BONE LESION on C.T .head scan, MULTIPLE MYELOMA FINDINGS: EXISTING RELEVANT IMAGING STUDIES: CT head April 28, 2022 TECHNIQUE: The patient was injected with 24.7 mCi of technetium 99-[id number]. 3 hour delayed images were obtained. FINDINGS: There is increased tracer activity in the shoulders, knees, feet, wrists and several foci in the thoracic and lumbar spines consistent with degenerative change. There is no definite abnormality of the calvarium. No other abnormal tracer activity is identified to suggest occult fracture or metastatic disease. IMPRESSION: No findings to indicate metastatic bone disease. Reviewed, Interpreted and Dictated by Hi Payan III, MD Transcribed by Arturo Mobley Authenticated and [facility]
== END ==
PROVIDERS: PCP Nurse Practitioner Family; Visit Provider Internal Medicine Medical Oncology
DX: Z85.820 Personal history of malignant melanoma of skin (principal); M89.9 Disorder of bone, unspecified
CPT/HCPCS: 78306; A9503

== ENCOUNTER → 2022-11-22 08:48 | Outpatient (CLI) | payer MEDICARE, OTHER, SELFPAY ==
[2022-11-22 09:33] LABS: Basophils % 0.4 % (0.1-2.0); Eosinophils # 0.1 K/mm3 (0.0-0.4); Eosinophils % 1.1 % (0.1-12.0); Hematocrit 47.4 % (37.0-47.0); Hemoglobin 14.9 g/dL (12.2-16.2); Lymphocytes # 1.7 K/mm3 (0.7-4.5); Lymphocytes % 23.4 % (10-50); Mean Corpuscular HGB Conc 31.5 g/dL (31.8-35.4); Mean Corpuscular Volume 98.4 fl (81-99); Mean Platelet Volume 10.1 fl (7.4-10.4); Monocytes # 0.5 K/mm3 (0.1-1.0); Monocytes % 6.8 % (1.7-9.3); Neutrophils % 68.2 % (37.0-80.0); Platelet Count 219 K/mm3 (142-424); Red Blood Count 4.81 M/mm3 (4.20-5.40); Red Cell Distribution Width 13.8 % (11.5-17.5); White Blood Count 7.3 K/mm3 (4.8-10.8)
[2022-11-22 09:40] LABS: Alanine Aminotransferase 31 U/L (12-78); Albumin Level 4.1 g/dl (3.5-5.0); Albumin/Globulin Ratio 1.3 (1.1-1.8); Alkaline Phosphatase 93 U/L (38-126); Anion Gap 18.5 mEq/L (5-15); Aspartate Amino Transferase 39 U/L (14-36); Bilirubin,Total 0.7 mg/dl (0.2-1.3); Blood Urea Nitrogen 30 mg/dl (7-17); Calcium 8.8 mg/dl (8.4-10.2); Carbon Dioxide 20 mmol/L (22.0-30.0); Chloride 107 mmol/L (98-107); Estimated Glomerular Filt Rate 54 ml/min (>60); GFR (African American) 66 ML/MIN (>60); Globulin 3.1 g/dL (1.3-3.2); Glucose 121 mg/dl (74-100); Potassium 4.5 mmoL/L (3.5-5.1); Sodium 141 mmol/L (136-145); Total Protein,Serum 7.2 g/dl (6.3-8.2)
== END ==
PROVIDERS: PCP Nurse Practitioner Family; Visit Provider Internal Medicine Medical Oncology
DX: R90.0 Intracranial space-occupying lesion found on diagnostic imaging of central nervous system (principal)
CPT/HCPCS: 36415; 80053; 85025

== ENCOUNTER → 2022-11-25 08:41 | Outpatient (CLI) | payer MEDICARE, OTHER, SELFPAY ==
--- NOTE | 2022-11-25 08:47 | CT_ITS ---
FINAL REPORT TECHNIQUE: Multiple axial CT sections were performed from the foramen magnum to the vertex. Coronal reformatted images were also obtained. Precontrast and postcontrast injection images were obtained. This study was performed with technique to keep radiation doses as low as reasonably achievable, (ALARA). Individualized dose reduction techniques using automated exposure control or adjustment of mA and/or kV according to the patient size were employed. CLINICAL HISTORY: BRAIN LESION COMPARISON: 04/29/2022 FINDINGS: Pre infused imaging demonstrates mild decreased attenuation in the deep white matter bilaterally likely related to chronic microvascular ischemia. The ventricles are normal in size. There is no evidence of hemorrhage. No masses are identified. No extra-axial fluid collection is seen. The sinuses are normal. No osseous abnormality is seen on the bone window images. Postcontrast images demonstrate no abnormal enhancement. Small lucencies are seen in the calvarium, particularly near the vertex which are unchanged from prior exam. There is abnormal soft tissue in the inferior left orbit with postoperative change. IMPRESSION: Unremarkable CT of the head with and without contrast. Reviewed, Interpreted and Dictated by Jordan Cali MD Transcribed by Constanza Elizondo Authenticated and [facility]
== END ==
PROVIDERS: PCP Nurse Practitioner Family; Visit Provider Internal Medicine Medical Oncology
DX: M89.9 Disorder of bone, unspecified (principal); G93.9 Disorder of brain, unspecified
CPT/HCPCS: 70470; Q9966

== ENCOUNTER 2023-01-21 10:03 | Observation (INO) | payer MEDICARE, OTHER, SELFPAY ==
[2023-01-21] VITALS (15 sets, daily range): BP systolic 96–158; BP diastolic 54–78; PULSE 67–77; RESP 16–20; TEMP 36.6–36.7; O2SAT 95–98; BMI 30.4; BMI 32.7
--- NOTE | 2023-01-21 10:26 | CT_ITS ---
FINAL REPORT TECHNIQUE: Thin section axial CT with IV contrast supplemented with multiplanar reconstruction under CT angiogram protocol. This study was performed with techniques to keep radiation doses as low as reasonably achievable (ALARA). Individualized dose reduction techniques using automated exposure control or adjustment of mA and/or kV according to the patient's size were employed. NASCET criteria was utilized during interpretation. CLINICAL HISTORY: dizziness, off balance, h/o stroke COMPARISON: None FINDINGS: Aortic arch: Arch shows no significant narrowing. Great vessel origins are widely patent. Right carotid: No significant stenosis is seen of the cervical common or internal carotid artery. Left carotid: There is mild common carotid artery stenosis on the left side involving a long segment of the mid and distal carotid artery. Also of note is that the left thyroid is absent or has been surgically removed. Vertebral: Left vertebral artery is dominant. No significant stenosis is present. IMPRESSION: Mild common carotid artery stenosis on the left side involving a long segment of the mid and distal carotid artery. 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 Reviewed, Interpreted and Dictated by Hi Payan III, MD Transcribed by Yue Martinez Authenticated and . [facility]
--- NOTE | 2023-01-21 10:26 | CT_ITS ---
FINAL REPORT CLINICAL HISTORY: dizziness, off balance, h/o stroke COMPARISON: 11/25/2022 FINDINGS: Axial images of the head were obtained without contrast. Coronal and sagittal reformatted images were also obtained. This study was performed with techniques to keep radiation doses as low as reasonably achievable (ALARA). Individualized dose reduction techniques using automated exposure control or adjustment of mA and/or kV according to the patient's size were employed. There is generalized age appropriate atrophy. There is no evidence of intracranial hemorrhage or mass. The ventricular size is within normal limits. There is no evidence of shift of the midline structures. There are postoperative changes present involving the left orbital floor. IMPRESSION: No acute intracranial abnormality. Reviewed, Interpreted and Dictated by Hi Payan III, MD Transcribed by Yue Martinez Authenticated and [facility]
--- NOTE | 2023-01-21 10:26 | CT_ITS ---
FINAL REPORT TECHNIQUE: Thin section axial CT with IV contrast supplemented with multiplanar reconstruction under CT angiogram protocol. 3-D reconstructions were performed. This study was performed with techniques to keep radiation doses as low as reasonably achievable (ALARA). Individualized dose reduction techniques using automated exposure control or adjustment of mA and/or kV according to the patient's size were employed. CLINICAL HISTORY: dizziness, off balance, h/o stroke COMPARISON: None FINDINGS: The distal vertebral, basilar and distal internal carotid arteries have an unremarkable appearance. No aneurysm is seen. Major intracranial vessels are patent without significant stenosis. IMPRESSION: No intracranial vascular abnormality identified. Reviewed, Interpreted and Dictated by Hi Payan III, MD Transcribed by Yue Martinez Authenticated and [facility]
--- NOTE | 2023-01-21 10:26 | CT_ITS ---
FINAL REPORT TECHNIQUE: Postcontrast axial images through the abdomen and pelvis were performed. This study was performed with techniques to keep radiation doses as low as reasonably achievable, (ALARA). Individualized dose reduction techniques using automated exposure control or adjustment of mA and/or kV according to the patient's size were employed. CLINICAL HISTORY: dizziness, off balance, h/o stroke COMPARISON: 04/29/2022 FINDINGS: Abdomen: The lung bases are clear. The liver is normal in size and attenuation. There are gallstones in the gallbladder. The spleen is mildly enlarged measuring 13.4 cm. The adrenals are normal. The pancreas is unremarkable. The kidneys enhance appropriately. The aorta is normal in caliber. No free fluid or adenopathy is identified. No findings for mechanical bowel obstruction are identified. Pelvis: The appendix is normal. There are multiple sigmoid diverticula. The patient is status post hysterectomy. The urinary bladder is unremarkable. No free fluid, free air, abscess or adenopathy is identified. There are degenerative and postoperative changes in the lumbar spine. IMPRESSION: Cholelithiasis. Mild splenomegaly. Reviewed, Interpreted and Dictated by Hi Payan III, MD Transcribed by Ning Dye Authenticated and . [facility]
[2023-01-21 11:13] LABS: Basophils % 0.3 % (0.1-2.0); Eosinophils % 0.5 % (0.1-12.0); Hematocrit 43.5 % (37.0-47.0); Hemoglobin 13.9 g/dL (12.2-16.2); Lymphocytes # 1.7 K/mm3 (0.7-4.5); Lymphocytes % 20.7 % (10-50); Mean Corpuscular Hemoglobin 31.2 pg (27.0-31.2); Mean Corpuscular Volume 97.6 fl (81-99); Mean Platelet Volume 9.8 fl (7.4-10.4); Monocytes # 0.7 K/mm3 (0.1-1.0); Monocytes % 8.3 % (1.7-9.3); Neutrophils # 5.9 K/mm3 (1.8-7.8); Neutrophils % 70.2 % (37.0-80.0); Platelet Count 211 K/mm3 (142-424); Red Blood Count 4.46 M/mm3 (4.20-5.40); White Blood Count 8.4 K/mm3 (4.8-10.8)
[2023-01-21 11:19] LABS: Activated Partial Thrombo Time 29.1 seconds (22.8-30.6); INR 1.27 (0.9-1.1); Prothrombin Time 13.5 seconds (10.1-12.5)
[2023-01-21 11:24] LABS: Alanine Aminotransferase 30 U/L (12-78); Albumin Level 3.6 g/dl (3.5-5.0); Albumin/Globulin Ratio 1.1 (1.1-1.8); Alkaline Phosphatase 98 U/L (38-126); Anion Gap 10.4 mEq/L (5-15); Aspartate Amino Transferase 35 U/L (14-36); Bilirubin,Total 0.6 mg/dl (0.2-1.3); Blood Urea Nitrogen 16 mg/dl (7-17); Calcium 8.6 mg/dl (8.4-10.2); Carbon Dioxide 26 mmol/L (22.0-30.0); Chloride 109 mmol/L (98-107); Creatinine Clearance Estimated 71 mL/min (50-200); Estimated Glomerular Filt Rate 61 ml/min (>60); GFR (African American) 74 ML/MIN (>60); Globulin 3.4 g/dL (1.3-3.2); Glucose 112 mg/dl (74-100); Lactic Acid 1.3 mmol/L (0.7-2.1); Lipase 95 U/L (23-300); Potassium 3.4 mmoL/L (3.5-5.1); Sodium 142 mmol/L (136-145)
[2023-01-21 11:25] LABS: Magnesium 1.7 mg/dl (1.6-2.3)
--- NOTE | 2023-01-21 11:27 | HMH.EDGENADL ---
Discharge Plan Disposition Patient Disposition: Admitted Clinical Impressions Clinical Impression: Vertigo, Dehydration, Difficulty balancing, Acute hypokalemia Discharge ED Provider: Alem Philip General Adult HPI General Chief complaint: Nausea/Vomiting/Diarrhea Stated complaint: dizzy Time Seen by Provider: 01/21/23 10:09 Mode of Arrival: Ambulatory Source of Information: Patient Limitations: No Limitations Description of Symptoms (Recalled from ER Triage Doc. by RN): 72 yo F presents to ED with c/o nausea, vomitting, dizziness. symptoms began last friday, nausea began friday. History of Present Illness HPI narrative: This patient is a 72-year-old female with a history of prior CVA with no residual deficits, atrial fibrillation on Xarelto, vertigo, and hypertension presenting to the emergency department for evaluation with concern for dizziness. She reports that on 01/08, she developed profuse, watery diarrhea while on vacation. She states that she also was experiencing nausea with poor oral intake. She states that she has felt dizzy ever since, and she has difficulty standing and walking secondary to feelings of being off balance. She denies any sensation that the room is spinning, but she states that she feels very off balance and cannot walk without falling to the side. She denies any fevers, chills, vision changes, numbness, tingling, unilateral weakness, chest pain, shortness of breath, rashes, or swelling. She does note abdominal cramping. Related Data Home Medications Medication Instructions Recorded Confirmed atorvastatin 10 mg tablet 10 mg PO DAILY High cholesterol 04/16/22 01/21/23 budesonide-formoterol HFA 160 2 puff inhalation BID Breathing 04/16/22 01/21/23 mcg-4.5 mcg/actuation aerosol problems inhaler (Symbicort) fluticasone propionate 50 2 spray intranasal DAILY Allergy 04/16/22 01/21/23 mcg/actuation nasal symptoms spray,suspension furosemide 40 mg tablet 40 mg PO DAILY Fluid / Swelling 04/16/22 01/21/23 ipratropium 0.5 mg-albuterol 3 mg 1 ml inhalation QID Breathing 04/16/22 11/29/22 (2.5 mg base)/3 mL nebulization problems soln levothyroxine 75 mcg tablet 75 mcg PO DAILY Thyroid 04/16/22 01/21/23 losartan 50 mg tablet 50 mg PO BID High blood pressure 04/16/22 01/21/23 metoprolol tartrate 50 mg tablet 50 mg PO BID High blood pressure 04/16/22 01/21/23 rivaroxaban 20 mg tablet (Xarelto) 20 mg PO HS afib 04/16/22 01/21/23 sertraline 100 mg tablet 200 mg PO HS Mood 04/16/22 01/21/23 tiotropium bromide 1.25 2 puff inhalation DAILY Breathing 04/16/22 01/21/23 mcg/actuation mist for inhalation problems (Spiriva Respimat) zafirlukast 20 mg tablet 20 mg PO BID Asthma 04/16/22 01/21/23 cyanocobalamin (vitamin B-12) 500 1,000 mcg PO AM supplement 04/29/22 11/29/22 mcg lozenges (Vitamin B-12) dupilumab 300 mg/2 mL subcutaneous 300 mg SQ DIRECTED COPD 04/29/22 11/29/22 syringe (Dupixent) bupropion HCl 300 mg 24 hr tablet, 300 mg PO DAILY Mood 05/09/22 01/21/23 extended release bupropion HCl 150 mg 24 hr tablet, 150 mg PO DAILY Mood 11/29/22 01/21/23 extended release Allergies Allergy/AdvReac Type Severity Reaction Status Date / Time levofloxacin [From Levaquin] Allergy Verified 11/29/22 10:23 [facility] Disclaimer: The information contained in this section may have been updated after the patient was seen, as this information can be updated by other users. Medical History Acute exacerbation of chronic obstructive airways disease Atrial fibrillation COPD (chronic obstructive pulmonary disease) CVA (cerebral vascular accident) Hyperlipidemia Hypertension Hypothyroidism Hypothyroidism Melanoma Vertigo Surgical History H/O dilation and curettage H/O laparoscopy H/O partial thyroidectomy H/O: hysterectomy History of tonsillectomy Previous back surgery Tubal
--- NOTE | 2023-01-21 11:38 | ECG_ITS ---
APPROVED REPORT Exam: Resting ECG HR:69 bpm ECG Measurements Heart Rate 69 AXES QRSd 134 QRS 173 QT 470 T 9 QTc 490 Conclusion ELECTRONIC VENTRICULAR PACEMAKER ABNORMAL RHYTHM ECG UNCONFIRMED REPORT Electronically signed by : Trev Basilio MD 01/22/2023 17:34:26
[2023-01-21 11:40] LABS: T4 (Thyroxine) 10.3 ug/dl (5.53-11.0); Troponin I < 0.01 ng/ml (0.00-0.034)
--- NOTE | 2023-01-21 11:51 | CT_ITS ---
FINAL REPORT CLINICAL HISTORY: presyncope COMPARISON: None FINDINGS: Thin section axial CT images of the chest were obtained with contrast. 3D reformatted images were also obtained. This study was performed with techniques to keep radiation doses as low as reasonably achievable (ALARA). Individualized dose reduction techniques using automated exposure control or adjustment of mA and/or kV according to the patient's size were employed. There is no evidence of pulmonary embolism. There is no evidence of thoracic aortic aneurysm or dissection. There is no evidence of mediastinal or hilar mass or adenopathy. There is cardiomegaly and a left subclavian pacer present. The central pulmonary arteries appears slightly enlarged, which may be secondary to pulmonary hypertension. There is no evidence of pulmonary mass or nodule. No localized inflammatory process is seen within the lungs. Limited images of the upper abdomen are unremarkable. IMPRESSION: No evidence of pulmonary embolism. Cardiomegaly and left subclavian pacer present. Slightly prominent pulmonary arteries, may be secondary to pulmonary hypertension. Reviewed, Interpreted and Dictated by Hi Payan III, MD Transcribed by Yue Martinez Authenticated and . [facility]
--- NOTE | 2023-01-21 11:52 | PC.NURSE ---
Went to restroom to assist patient back to her room and pt was SOA appearing and unsteady on her feet. PT advised she did not feel well and was feeling very dizzy. Conrado went and got pt w/c. Pt color was also ill appearing. Pt was moved into room 1 for closer monitoring, MD notified.
[2023-01-21 11:54] LABS: Thyroid Stimulating Hormone 2.37 uIU/mL (0.465-4.68)
[2023-01-21 12:02] LABS: Microscopic, Urine URINE MICROSCOPIC (MICROSCOPIC)
[2023-01-21 12:03] LABS: Appearance,Urine CLEAR (Clear); Blood, Urine Negative (Negative); Color,Urine YELLOW (Yellow); Glucose,Urine (UA) Negative (Negative); Ketones,Urine Negative (Negative); Leukocyte Esterase,Urine TRACE (Negative); Nitrate,Urine Negative (Negative); PH,Urine 6.5 (5.0-8.5); Protein,Urine TRACE (Negative)
[2023-01-21 12:22] LABS: Bilirubin,Urine 1+ (Negative)
[2023-01-21 12:40] LABS: Bacteria,Urine 4+ /lpf
[2023-01-21 14:34] LABS: Coronavirus 19, PCR Not Detected (NotDetected); Influenza A, PCR Not Detected (NotDetected); Influenza B, PCR Not Detected (NotDetected)
--- NOTE | 2023-01-21 14:45 | EXP.HP ---
History of Present Illness *Admission Date: 01/21/23 *Reason for visit:: dizziness *History of present illness: Ms. Crenshaw is a 72 year old female with a past medical history of CVA without residual deficits, atrial Fibrillation on chronic anticoagulation, stats post pacemaker placement, COPD, h/o melanoma, hypertension, hypothyroidism and hyperlipidemia. She presents to the ED with several days of dizziness. It is difficult for her to describe the sensation. She hasn't been eating or drinking very well recently because it has caused abdominal discomfort and distension. Her last bowel movement was 2 days ago. She states that approximately 2 weeks ago she had diarrhea 3-4 times daily and this lasted for about one week. For this she took imodium and peptobismol, but she hasn't taken any doses of these medications in about a week. Abd/pel ct is unremarkable except for cholelithiasis and mild splenomegaly. She denies fever, cough, worsening shortness of breath, chest pain and dysuria. Initial vitals: BP 96/63 - P 70 - RR 16 - SpO2 95% RA - T 98F Initial workup: CBC with 8.4k wbcs CMP with K 3.4, Cr 0.9 mg 1.7 troponin I <0.01 - <0.01 UA with 10-20 epithelial cells covid/flu pcr studies negative chest cta: No evidence of pulmonary embolism. Cardiomegaly and left subclavian pacer present. Slightly prominent pulmonary arteries, may be secondary to pulmonary hypertension. Neck CTA: Mild common carotid artery stenosis on the left side involving a long segment of the mid and distal carotid artery. 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 head CTA: No intracranial vascular abnormality identified. head ct: No acute intracranial abnormality. abd/pel ct: Cholelithiasis. Mild splenomegaly. urine culture was collected EKG v paced rhythm ED medications: LR bolus x 1 liter, meclizine 25mg PFSH PFSH Disclaimer: The information contained in this section may have been updated after the patient was seen, as this information can be updated by other users. Medical History (Updated 01/21/23 @ 16:44 by Arley Schwartz MD) Acute exacerbation of chronic obstructive airways disease Atrial fibrillation COPD (chronic obstructive pulmonary disease) CVA (cerebral vascular accident) Hyperlipidemia Hypertension Hypothyroidism Hypothyroidism Melanoma Vertigo Surgical History H/O dilation and curettage H/O laparoscopy H/O partial thyroidectomy H/O: hysterectomy History of tonsillectomy Previous back surgery Tubal ligation status Family History Father Lung cancer Mother Parkinsons Sister Kidney disease Social History Smoking Status: Former smoker alcohol intake: never current occupational status: retired Travel in the last 8 weeks: None Review of Systems Review of Systems Review of systems:: pertinent systems reviewed and negative unless documented below ENT Ears, Nose, Mouth, and Throat: Reports dizziness *Gastrointestinal Gastrointestinal: Reports abdominal pain and Reports constipation *Neurologic Neurologic: Reports dizziness Meds Home Medications and Allergies Home Medications Medication Instructions Recorded Confirmed Type atorvastatin 10 mg tablet 10 mg PO DAILY High cholesterol 04/16/22 01/21/23 History budesonide-formoterol HFA 160 2 puff inhalation BID Breathing 04/16/22 01/21/23 History mcg-4.5 mcg/actuation aerosol problems inhaler (Symbicort) fluticasone propionate 50 2 spray intranasal DAILY Allergy 04/16/22 01/21/23 History mcg/actuation nasal symptoms spray,suspension furosemide 40 mg tablet 40 mg PO DAILY Fluid / Swelling 04/16/22 01/21/23 History ipratropium 0.5 mg-albuterol 3 mg 1 ml inhalation QID Breathing 04/16/22 11/29/22 History (2.5 mg base)/3 mL nebulization problems soln levothyroxine 75 mcg tablet 75 mcg PO DAILY Thy
[2023-01-21 15:05] LABS: Troponin I < 0.01 ng/ml (0.00-0.034)
--- NOTE | 2023-01-21 15:40 | PC.NURSE ---
Alexander BANDA called report to Annette Marquez RN.
[2023-01-21 17:52] LABS: Troponin I < 0.01 ng/ml (0.00-0.034)
[2023-01-22] VITALS (8 sets, daily range): BP systolic 119–162; BP diastolic 63–102; PULSE 66–83; RESP 16–17; TEMP 36.4–36.6; O2SAT 95–98; BMI 32.6
[2023-01-22 06:30] LABS: Basophils % 0.3 % (0.1-2.0); Eosinophils # 0.1 K/mm3 (0.0-0.4); Lymphocytes # 1.8 K/mm3 (0.7-4.5); Monocytes # 0.7 K/mm3 (0.1-1.0)
[2023-01-22 06:36] LABS: Chloride 110 mmol/L (98-107); Potassium 3.8 mmoL/L (3.5-5.1); Sodium 142 mmol/L (136-145)
[2023-01-22 06:38] LABS: Magnesium 1.8 mg/dl (1.6-2.3)
[2023-01-22 06:39] LABS: Alanine Aminotransferase 24 U/L (12-78); Albumin Level 2.9 g/dl (3.5-5.0); Alkaline Phosphatase 93 U/L (38-126); Anion Gap 10.8 mEq/L (5-15); Aspartate Amino Transferase 26 U/L (14-36); Bilirubin,Total 0.5 mg/dl (0.2-1.3); Blood Urea Nitrogen 15 mg/dl (7-17); Carbon Dioxide 25 mmol/L (22.0-30.0); Creatinine Clearance Estimated 81 mL/min (50-200); Estimated Glomerular Filt Rate 61 ml/min (>60); GFR (African American) 74 ML/MIN (>60); Globulin 2.9 g/dL (1.3-3.2); Total Protein,Serum 5.8 g/dl (6.3-8.2)
[2023-01-22 06:40] LABS: Calcium 8.6 mg/dl (8.4-10.2); Glucose 106 mg/dl (74-100)
[2023-01-22 06:53] LABS: Eosinophils % 0.6 % (0.1-12.0); Hematocrit 37.5 % (37.0-47.0); Lymphocytes % 24.8 % (10-50); Mean Corpuscular HGB Conc 32.2 g/dL (31.8-35.4); Mean Corpuscular Hemoglobin 31.2 pg (27.0-31.2); Mean Corpuscular Volume 96.9 fl (81-99); Mean Platelet Volume 9.5 fl (7.4-10.4); Neutrophils # 4.8 K/mm3 (1.8-7.8); Neutrophils % 65.3 % (37.0-80.0); Platelet Count 185 K/mm3 (142-424); Red Blood Count 3.87 M/mm3 (4.20-5.40); Red Cell Distribution Width 14.1 % (11.5-17.5); White Blood Count 7.4 K/mm3 (4.8-10.8)
[2023-01-22 06:54] LABS: Hemoglobin 12.1 g/dL (12.2-16.2)
--- NOTE | 2023-01-22 07:00 | US_ITS ---
FINAL REPORT CLINICAL HISTORY: CHOLELITHIASIS, ABD DISCOMFORT COMPARISON: None FINDINGS: Sonographic images of the right upper quadrant were obtained. The pancreas is partially obscured. There is mild fatty infiltration of the liver. There is a 2.6 cm gallstone present in the gallbladder, with wall thickening of the gallbladder wall measuring 5 mm, nonspecific but cholecystitis is not excluded. There is no evidence of biliary ductal dilatation.The common duct measures 4 mm. Limited images of the right kidney are unremarkable. IMPRESSION: 2.6 cm gallstone present in the gallbladder, with wall thickening of the gallbladder wall measuring 5 mm. This is nonspecific but cholecystitis is not excluded. If clinically indicated a hepatobiliary nuclear medicine exam could be performed for further evaluation. Reviewed, Interpreted and Dictated by Hi Payan III, MD Transcribed by Yue Martinez Authenticated and [facility]
[2023-01-22 07:10] LABS: Thyroid Stimulating Hormone 2.36 uIU/mL (0.465-4.68)
--- NOTE | 2023-01-22 07:49 | HMH.PHAINT1 ---
Pharmacy Intervention Comments: Medication history complete, medications verified with fill history and patient. - Rachel Lynn, PharmD Candidate 2023
--- NOTE | 2023-01-22 09:50 | HMH.PTEV ---
Physical Therapy Evaluation Rehab PT IP Evaluation Start: 01/21/23 16:42 Freq: ONCE Status: Active Protocol: Document 01/22/23 09:46 PHORELLY (Rec: 01/22/23 09:49 PHORNE [id number]) Subjective/History History History 72 yowf adm to [facility] with dizziness and dehydration. She has PMH of CVA, a-fib, pacemaker, COPD, HTN, and HLD. She reports she lives with her spouse, 3-4 steps to enter the home, and she is generally independent with all mobility without an AD. She reports her spouse assists her into the bath tub at baseline , but she is otherwise independent with ADLs. Subjective Subjective Pt reports feeling better this am, no nausea, decreased dizziness, no sensations of vertigo this date. Rehab PT IP Eval Objective Appearance Patient Behavior Appropriate Patient Orientation Person,Place,Time Difficulty following instructions none Speech Pattern Clear Ambulation Patient Able to Ambulate Yes Ambulation Observation IP General Gait Pattern Observation Wide Based Gait Ambulation Distance (feet) 30 Ambulation Assistive Device None Ambulation Ability Supervision/Stand by Balance Ability to Arise Able, uses arms to help Sitting Balance Steady, safe Standing Balance Steady, wide stance Dynamic Sitting Balance Ability Good Dynamic Standing Balance Ability Fair Transfers Bed Transfer Ability Supervision/Stand by Chair Transfer Ability Supervision/Stand by Sit to Stand Bed Transfer Ability Supervision/Stand by Sit to Stand Chair Transfer Ability Supervision/Stand by ROM All Extremities PT ROM Status WFL MMT All Extremities PT MMT WFL Rehab PT IP prob,goals,plan Problems Date of Evaluation: 01/22/23 Discharge Plan PT Discharge Plan Pt appears to be at baseline for all mobility at this time and is appropriate to return home once medically stable for d/c. G -code Required No Eval Complexity Eval Charge Codes 59891 - High Complexity PHYSICIAN CERTIFICATION: I certify the specified therapy services for James Crenshaw are required, authorized,
--- NOTE | 2023-01-22 11:11 | SW/DCPLANNER ---
I spoke with this patient regarding plans once medically stable for discharge. Per patient she resides at home with her and does well at home. PT evaluated patient and recommended home w/ home health services. Patient and her were present at the time of my visit. Patient expressed that she is not interested in home health services at this time. I have provided patient with my contact information for any future needs. Patient has also been provided an [facility] resource list. Patient may discharge later today pending results of HIDA scan per Dr Schwartz.
--- NOTE | 2023-01-22 15:55 | EXP.DC.SUM ---
General Admission date:: 01/21/23 Discharge date: 01/22/23 HPI HPI HPI: Ms. Crenshaw is a 72 year old female with a past medical history of CVA without residual deficits, atrial Fibrillation on chronic anticoagulation, stats post pacemaker placement, COPD, h/o melanoma, hypertension, hypothyroidism and hyperlipidemia. She presents to the ED with several days of dizziness. It is difficult for her to describe the sensation. She hasn't been eating or drinking very well recently because it has caused abdominal discomfort and distension. Her last bowel movement was 2 days ago. She states that approximately 2 weeks ago she had diarrhea 3-4 times daily and this lasted for about one week. For this she took imodium and peptobismol, but she hasn't taken any doses of these medications in about a week. Abd/pel ct is unremarkable except for cholelithiasis and mild splenomegaly. She denies fever, cough, worsening shortness of breath, chest pain and dysuria. Initial vitals: BP 96/63 - P 70 - RR 16 - SpO2 95% RA - T 98F Initial workup: CBC with 8.4k wbcs CMP with K 3.4, Cr 0.9 mg 1.7 troponin I <0.01 - <0.01 UA with 10-20 epithelial cells covid/flu pcr studies negative chest cta: No evidence of pulmonary embolism. Cardiomegaly and left subclavian pacer present. Slightly prominent pulmonary arteries, may be secondary to pulmonary hypertension. Neck CTA: Mild common carotid artery stenosis on the left side involving a long segment of the mid and distal carotid artery. 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 head CTA: No intracranial vascular abnormality identified. head ct: No acute intracranial abnormality. abd/pel ct: Cholelithiasis. Mild splenomegaly. urine culture was collected EKG v paced rhythm ED medications: LR bolus x 1 liter, meclizine 25mg Hospital Course Hospital Course Hospital Course: #dizziness, resolving #constipation, resolved #biliary colic #COPD #obesity #atrial fibrillation #hypothyroidism I believe the patient's dizziness is due to volume depletion as she wasn't been able to eat or drink well over the past several days. She has been eating less because she is afraid of postprandial abdominal pain. Dizziness significantly subsided with iv fluids. On day of discharge she was eating well but continues to have postprandial diffuse abdominal discomfort. Abdominal exam was benign. CT abd/pel revealed cholelithiasis. US of the gallbladder revealed 5mm thickening of the gall bladder wall and a 2.6cm gallstone. She will see General Surgery in clinic within one week. The patient's losartan and furosemide is to be held until she follows up with her PCP in 1 week. Exam Data for Last 24 hours Vital signs and Labs for Last 24 Hours: Temp Pulse Resp BP Pulse Ox O2 Del Method 97.6 F 70 17 136/77 95 Room Air 01/22/23 15:07 01/22/23 15:07 01/22/23 15:07 01/22/23 15:07 01/22/23 15:07 01/22/23 15:07 Laboratory Results - last 24 hr 01/21/23 17:05: Troponin I < 0.01 01/22/23 06:10: WBC 7.4, RBC 3.87 L, Hgb 12.1 L D, Hct 37.5, MCV 96.9, MCH 31.2, MCHC 32.2, RDW 14.1, Plt Count 185, MPV 9.5, Neut % (Auto) 65.3, Lymph % (Auto) 24.8, Briscoe % (Auto) 9.0, Eos % (Auto) 0.6, Baso % (Auto) 0.3, Neut # (Auto) 4.8, Lymph # (Auto) 1.8, Briscoe # (Auto) 0.7, Eos # (Auto) 0.1, Baso # (Auto) 0.0, Sodium 142, Potassium 3.8, Chloride 110 H, Carbon Dioxide 25, Anion Gap 10.8, BUN 15, Creatinine 0.90, Estimated Creat Clear 81, Estimated GFR 61, Est GFR ( Amer) 74, Glucose 106 H, Calcium 8.6, Magnesium 1.8, Total Bilirubin 0.5, AST 26 D, ALT 24, Alkaline Phosphatase 93, Total Protein 5.8 L, Albumin 2.9 L D, Globulin 2.9, Albumin/Globulin Ratio 1.0 L, TSH 2.36 I & O for Last 24 hours: Intake & Output 01/19/23 01/20/23 01/21/23 01/22/23 23:59 23:59 23:59 23:59 Intake Total 270 / 270 1600 / 1600 Output Total 0 / 0 0 / 0 Balance 270 / 270 1600 / 1600 Weight 103.476 kg 103.476 kg Microbiology Reports for the L
--- NOTE | 2023-01-23 11:16 | CARE MANAGER ---
Patient contacted related to hospital discharge. Patient states her ribs are hurting and she has an increase in shortness of breath. She states as long as she keeps her bipap on then she feels fine. This is different than prior to hospitalization. She doesn't follow up with her PCP until the . She has taken her inhalers. We discussed seeking medical care in ER if necessary and she continues to decline or if she can call and see PCP today or tomorrow. Patient states she will do this. Someone is at home with her. SOLO Khan
== END 2023-01-22 17:32 | disposition home or self-care (01) ==
LOC: ER 15:26 → 2ND 15:33
PROVIDERS: Admitting Provider Internal Medicine; Emergency Provider Emergency Medicine; PCP Nurse Practitioner Family; Visit Provider Internal Medicine
DX: R42 Dizziness and giddiness (principal); E03.9 Hypothyroidism, unspecified; I48.91 Unspecified atrial fibrillation; J44.9 Chronic obstructive pulmonary disease, unspecified; K59.00 Constipation, unspecified
CPT/HCPCS: 36415; 70450; 70496; 70498; 71275; 74177; 76705; 80053; 81001; 83605; 83690; 83735; 84436; 84443; 84484; 85025; 85610; 85730; 87086; 93005; 97163; 99285; G0378; Q9967

== ENCOUNTER 2023-01-23 12:52 | Inpatient (IN) | payer MEDICARE, OTHER, SELFPAY ==
[2023-01-23] VITALS (12 sets, daily range): BP systolic 111–146; BP diastolic 58–76; PULSE 69–81; RESP 18–28; TEMP 36.5–36.8; O2SAT 91–97; BMI 32.7; BMI 34.0
--- NOTE | 2023-01-23 13:15 | XR_ITS ---
FINAL REPORT CLINICAL HISTORY: Shortness of breath COMPARISON: None FINDINGS: A single portable view of the chest was obtained. Cardiomegaly is noted. There is a left subclavian pacer present. Pulmonary vascularity is within normal limits. The mediastinum is within normal limits. Right base opacities are worrisome for pneumonia. The bony thorax is intact. IMPRESSION: Right base opacities worrisome for pneumonia. Reviewed, Interpreted and Dictated by Hi Payan III, MD Transcribed by Daya Grover Authenticated and [facility]
--- NOTE | 2023-01-23 13:23 | ECG_ITS ---
APPROVED REPORT Exam: Resting ECG HR:70 bpm ECG Measurements Heart Rate 70 AXES QRSd 106 QRS 171 QT 402 T 44 QTc 422 Conclusion ELECTRONIC VENTRICULAR PACEMAKER ABNORMAL RHYTHM ECG UNCONFIRMED REPORT Electronically signed by : Trev Basilio MD 01/24/2023 08:40:20
--- NOTE | 2023-01-23 13:54 | HMH.EDGENADL ---
Discharge Plan Disposition Chief Complaint: Shortness of Breath/Dyspnea Clinical Impressions Clinical Impression: Pneumonia, Acute hypoxemic respiratory failure Discharge ED Provider: Alem Philip General Adult HPI General Chief complaint: Shortness of Breath/Dyspnea Stated complaint: severe abd pain, SOA Time Seen by Provider: 01/23/23 13:42 History of Present Illness HPI narrative: This patient is a 72-year-old female with a history of atrial fibrillation with pacemaker in place, COPD, hypothyroidism, and hypertension presenting to the emergency department for evaluation with concern for shortness of breath. On medical record review, patient was admitted to the hospital and discharged yesterday. She was admitted for intractable dizziness in the setting of likely dehydration given an acute previous diarrheal illness. Patient states that since going home, she has had significant difficulty breathing. She does not usually wear oxygen at home but is hypoxic upon arrival. She denies any fevers, but she does admit to cough. She denies any abdominal pain, nausea, vomiting, changes in bowel movements, or other concerns. She continues to have significant weakness since discharge. Related Data Home Medications Medication Instructions Recorded Confirmed atorvastatin 10 mg tablet 10 mg PO DAILY High cholesterol 04/16/22 01/21/23 budesonide-formoterol HFA 160 2 puff inhalation BID Breathing 04/16/22 01/21/23 mcg-4.5 mcg/actuation aerosol problems inhaler (Symbicort) fluticasone propionate 50 2 spray intranasal DAILY Allergy 04/16/22 01/21/23 mcg/actuation nasal symptoms spray,suspension furosemide 40 mg tablet 40 mg PO DAILY Fluid / Swelling 04/16/22 01/21/23 ipratropium 0.5 mg-albuterol 3 mg 1 ml inhalation QIDP PRN Breathing 04/16/22 01/22/23 (2.5 mg base)/3 mL nebulization Problems soln levothyroxine 75 mcg tablet 75 mcg PO DAILY Thyroid 04/16/22 01/21/23 losartan 50 mg tablet 50 mg PO BID High blood pressure 04/16/22 01/21/23 metoprolol tartrate 50 mg tablet 50 mg PO BID High blood pressure 04/16/22 01/21/23 rivaroxaban 20 mg tablet (Xarelto) 20 mg PO HS afib 04/16/22 01/21/23 sertraline 100 mg tablet 200 mg PO HS Mood 04/16/22 01/21/23 tiotropium bromide 1.25 2 puff inhalation DAILY Breathing 04/16/22 01/21/23 mcg/actuation mist for inhalation problems (Spiriva Respimat) zafirlukast 20 mg tablet 20 mg PO BID Asthma 04/16/22 01/21/23 cyanocobalamin (vitamin B-12) 500 1,000 mcg PO AM supplement 04/29/22 01/22/23 mcg lozenges (Vitamin B-12) dupilumab 300 mg/2 mL subcutaneous 300 mg SQ DIRECTED COPD 04/29/22 01/22/23 syringe (Dupixent) bupropion HCl 300 mg 24 hr tablet, 300 mg PO DAILY Mood 05/09/22 01/21/23 extended release bupropion HCl 150 mg 24 hr tablet, 150 mg PO DAILY Mood 11/29/22 01/21/23 extended release Allergies Allergy/AdvReac Type Severity Reaction Status Date / Time levofloxacin [From Levaquin] Allergy Verified 11/29/22 10:23 [facility] Disclaimer: The information contained in this section may have been updated after the patient was seen, as this information can be updated by other users. Medical History Acute exacerbation of chronic obstructive airways disease Atrial fibrillation COPD (chronic obstructive pulmonary disease) CVA (cerebral vascular accident) Hyperlipidemia Hypertension Hypothyroidism Hypothyroidism Melanoma Vertigo Surgical History H/O dilation and curettage H/O laparoscopy H/O partial thyroidectomy H/O: hysterectomy History of tonsillectomy Previous back surgery Tubal ligation status Family History Father Lung cancer Mother Parkinsons Sister Kidney disease Social History Smoking Status: Former smoker alcohol intake: never
[2023-01-23 14:30] LABS: VBG Base Excess -5.5 mmol/L (-2.4-2.3); VBG HCO3 18.5 mmol/L (23-30); VBG Oxygen Saturation 99.1 % (50-70); VBG PH 7.45 mmol/L (7.31-7.41); VBG PO2 150.7 mmol/L (28-40); VBG Total CO2 19.3 mmol/L (23-27)
[2023-01-23 14:31] LABS: Basophils % 0.2 % (0.1-2.0); Eosinophils # 0.1 K/mm3 (0.0-0.4); Eosinophils % 0.9 % (0.1-12.0); Hematocrit 39.5 % (37.0-47.0); Hemoglobin 12.7 g/dL (12.2-16.2); Lymphocytes # 1.1 K/mm3 (0.7-4.5); Lymphocytes % 7.2 % (10-50); Mean Corpuscular HGB Conc 32.2 g/dL (31.8-35.4); Mean Corpuscular Hemoglobin 31.1 pg (27.0-31.2); Mean Corpuscular Volume 96.8 fl (81-99); Mean Platelet Volume 9.7 fl (7.4-10.4); Monocytes % 6.9 % (1.7-9.3); Neutrophils # 12.4 K/mm3 (1.8-7.8); Neutrophils % 84.8 % (37.0-80.0); Platelet Count 185 K/mm3 (142-424); Red Blood Count 4.08 M/mm3 (4.20-5.40); White Blood Count 14.6 K/mm3 (4.8-10.8)
[2023-01-23 14:43] LABS: Alanine Aminotransferase 49 U/L (12-78); Albumin Level 3.6 g/dl (3.5-5.0); Albumin/Globulin Ratio 1.1 (1.1-1.8); Alkaline Phosphatase 138 U/L (38-126); Anion Gap 13.9 mEq/L (5-15); Aspartate Amino Transferase 60 U/L (14-36); Bilirubin,Total 1.4 mg/dl (0.2-1.3); Blood Urea Nitrogen 13 mg/dl (7-17); Calcium 8.5 mg/dl (8.4-10.2); Carbon Dioxide 22 mmol/L (22.0-30.0); Chloride 109 mmol/L (98-107); Creatinine Clearance Estimated 81 mL/min (50-200); Estimated Glomerular Filt Rate 82 ml/min (>60); GFR (African American) 99 ML/MIN (>60); Globulin 3.4 g/dL (1.3-3.2); Glucose 131 mg/dl (74-100); Potassium 3.9 mmoL/L (3.5-5.1); Sodium 141 mmol/L (136-145)
[2023-01-23 14:49] LABS: Coronavirus 19, PCR Not Detected (NotDetected); Influenza A, PCR Not Detected (NotDetected); Influenza B, PCR Not Detected (NotDetected)
--- NOTE | 2023-01-23 14:51 | PC.NURSE ---
Patient has finished neb tx. Removed mask.
[2023-01-23 14:52] LABS: NT Pro Brain Natriuretic Pep. 6270 pg/mL (0-125)
[2023-01-23 14:56] LABS: Troponin I 0.04 ng/ml (0.00-0.034)
[2023-01-23 15:13] LABS: Thyroid Stimulating Hormone 5.66 uIU/mL (0.465-4.68)
[2023-01-23 16:00] LABS: T4 (Thyroxine) 9.4 ug/dl (5.53-11.0)
--- NOTE | 2023-01-23 16:38 | CA_ITS ---
APPROVED REPORT EXAM: Comprehensive 2D, Doppler, and color-flow Echocardiogram Adjunct Teacher: DOROTHY Giles, RVS Ht: 5 ft 10 in Wt: 228lbs BSA: 2.21 HR: 70 bpm BP: 152/77 mmHg Rhythm: Atrial Fibrillation Indications: AFIB, SOA, PUENTES, COPD, EX-SMOKER, HTN, HLD, ABD PAIN Echo Enhancing Agent Comments: TDS;patient scanned upright in wheelchair due to dyspnea. 2D Dimensions Aortic Root 3.31 cm F: 2.7 - 3.3 LA Volume 103.10 mL Left Atrium 3.98 cm F: 2.7 - 3.8 LA Volume Index 46.65 mL/m2 (M/F) 16-34 LVOT 2.15 cm (M/F) 1.5-2.5 M-Mode Dimensions RVDd 3.73 cm (0.9-2.6) LA Diam 5.23 cm (1.9-4.0) LVDd 4.49 cm (3.5-5.7) Ao Diam 3.22 cm (2.0-3.7) LVDs 3.19 cm (3.5-5.7) IVSd 1.10 cm (0.6-1.1) PWd 1.03 cm (0.6-1.1) EF (Teich) 55.90% EPSs 0.23 cm FS 29.00% EDV (Teich) 92.00 mL TAPSE 1.88 (<1.7) ESV (Teich) 40.60 mL LV Diastology E Decel Time 133.00 (160-240 msec) E/A Ratio 5.09 MED E' 9.20 (< 7 cm/sec) MED A' 3.00 cm/s E'/MED E' Ratio 14.45 (>14) LAT E' 10.50 (<10 cm/sec) LAT A' 3.50 cm/s E/LAT E' Ratio 12.66 (>14) Aortic Valve LVOT Max 79.00 (70-110 cm/s) LVOT VTI 16.73 cm AoV Peak Freedom. 90.00 (50-130 cm/s) AO Peak GR. 3.20 mmHg AO Mean GR. 1.60 (<5 mmHg) AO VTI 18.49 (18-25 cm) NOLBERTO (VTI) 3.28 (2.5-4.5 cm2) Mitral Valve MV A Velocity 26.00 (40-130 cm/s) E/A Ratio 5.09 MV Decel. Time 133.00 (160-240 ms) Pulmonary Valve PV Peak Velocity 71.00 (50-150 cm/s) Tricuspid Valve TR P. Velocity 322.00 cm/s RAP Estimate 10.00 mmHg RVSP 51.40 mmHg Left Ventricle The left ventricle is normal size. The left ventricular systolic function is normal. The left ventricular ejection fraction is within the normal range. There is increased LV wall thickness. There is normal LV segmental wall motion. The left ventricular diastolic function is normal. LVEF is 60%. Right Ventricle Right ventricle is moderately dilated. A device lead is present in the right ventricle. The right ventricular systolic function is normal. There is septal flattening consistent with elevated right sided pressure. Atria Left atrium is moderately dilated. Right atrium is mildly dilated. Aortic Valve The aortic valve is trileaflet. The aortic valve is mildly thickened. There is no aortic valvular stenosis. Trace aortic regurgitation. Mitral Valve There is mild mitral annular calcification (MAC). The mitral valve is mildly thickened. No evidence of mitral valve stenosis. Moderate mitral regurgitation. Tricuspid Valve The tricuspid valve is thin and pliable. Moderate tricuspid regurgitation. RVSP is 41 mmHg + RA pressure. Pulmonic Valve The pulmonary valve is normal in structure. Trace pulmonic regurgitation. Great Vessels The aortic root is normal in size. The ascending aorta is normal in size. The IVC is not well visualized. Pericardium There is no pericardial effusion. Other Information Study Quality: Fair Conclusion Normal biventricular systolic function Moderate RV dilation Biatrial dilation Moderate MR Moderate TR Elevated RVSP at 41 mmHg + RA pressure Incidentally, the patient was found to have gall bladder stones in this study during acquisition of images in the subcostal views. The patient is noted to be in atrial fibrillation during the acquisition of the study images. Electronically signed by : Lisa Jacobs, 01/24/2023 20:10:26
--- NOTE | 2023-01-23 16:48 | PC.NURSE ---
notified gatehouse attendant of admission
--- NOTE | 2023-01-23 16:48 | EXP.HP ---
History of Present Illness *Admission Date: 01/23/23 *Reason for visit:: shortness of breath *History of present illness: Ms. Crenshaw is a 72 year old female with a past medical history of CVA without residual deficits, atrial Fibrillation on chronic anticoagulation, stats post pacemaker placement, COPD, h/o melanoma, hypertension, hypothyroidism and hyperlipidemia. She presents to the ED with 1 day of shortness of breath. She was discharged from here just yesterday after a 1 day hospital stay for dizziness due to dehydration and biliary colic. She states that once she left the hospital she gradually developed worsening shortness of breath. She denies cough and fever. She denies lower extremity swelling but may have developed worsening swelling of her abdomen. CXR reveals perihilar congestion and R basilar opacities concerning for pneumonia. She takes lasix po 40mg daily at baseline and does not know if she has a history of CHF. She continues to have postprandial diffuse abdominal pain and distension and hasn't eaten since last night. [facility] Disclaimer: The information contained in this section may have been updated after the patient was seen, as this information can be updated by other users. Medical History Acute exacerbation of chronic obstructive airways disease Atrial fibrillation COPD (chronic obstructive pulmonary disease) CVA (cerebral vascular accident) Hyperlipidemia Hypertension Hypothyroidism Hypothyroidism Melanoma Vertigo Surgical History H/O dilation and curettage H/O laparoscopy H/O partial thyroidectomy H/O: hysterectomy History of tonsillectomy Previous back surgery Tubal ligation status Family History Father Lung cancer Mother Parkinsons Sister Kidney disease Social History Smoking Status: Former smoker alcohol intake: never current occupational status: retired Travel in the last 8 weeks: None Review of Systems Review of Systems Review of systems:: pertinent systems reviewed and negative unless documented below *Cardiovascular Cardiovascular: Reports dyspnea *Respiratory Respiratory: Reports dyspnea *Gastrointestinal Gastrointestinal: Reports abdominal pain, Reports bloating and Reports nausea Meds Home Medications and Allergies Home Medications Medication Instructions Recorded Confirmed Type atorvastatin 10 mg tablet 10 mg PO DAILY High cholesterol 04/16/22 01/21/23 History budesonide-formoterol HFA 160 2 puff inhalation BID Breathing 04/16/22 01/21/23 History mcg-4.5 mcg/actuation aerosol problems inhaler (Symbicort) fluticasone propionate 50 2 spray intranasal DAILY Allergy 04/16/22 01/21/23 History mcg/actuation nasal symptoms spray,suspension furosemide 40 mg tablet 40 mg PO DAILY Fluid / Swelling 04/16/22 01/21/23 History ipratropium 0.5 mg-albuterol 3 mg 1 ml inhalation QIDP PRN Breathing 04/16/22 01/22/23 History (2.5 mg base)/3 mL nebulization Problems soln levothyroxine 75 mcg tablet 75 mcg PO DAILY Thyroid 04/16/22 01/21/23 History losartan 50 mg tablet 50 mg PO BID High blood pressure 04/16/22 01/21/23 History metoprolol tartrate 50 mg tablet 50 mg PO BID High blood pressure 04/16/22 01/21/23 History rivaroxaban 20 mg tablet (Xarelto) 20 mg PO HS afib 04/16/22 01/21/23 History sertraline 100 mg tablet 200 mg PO HS Mood 04/16/22 01/21/23 History tiotropium bromide 1.25 2 puff inhalation DAILY Breathing 04/16/22 01/21/23 History mcg/actuation mist for inhalation problems (Spiriva Respimat) zafirlukast 20 mg tablet 20 mg PO BID Asthma 04/16/22 01/21/23 History cyanocobalamin (vitamin B-12) 500 1,000 mcg PO AM supplement 04/29/22 01/22/23 History mcg lozenges (Vitamin B-12) dupilumab 300 mg/2 mL subcutaneous 300 mg SQ DIRECTED COPD 11
--- NOTE | 2023-01-23 18:06 | PC.NURSE ---
called report to Felix BANDA on 2nd floor
[2023-01-23 18:27] LABS: Troponin I 0.06 ng/ml (0.00-0.034)
--- NOTE | 2023-01-23 18:51 | PC.NURSE ---
dr. davi camarillo to give 3gm's of ampicillian
--- NOTE | 2023-01-23 19:26 | EXP.SURG.CON ---
History of Present Illness *Admission Date: 01/23/23 *Reason for visit:: Gallstone *History of present illness: Patient is a 72-year-old female with history of atrial fibrillation, COPD, CHF, prior CVA without deficit, pacemaker, history of melanoma (), hypertension, hypothyroidism, hyperlipidemia on Xarelto. She has a history of lytic lesions on radiographic imaging noted when she was evaluated in April 2022 for vertigo and dizziness. She has seen oncology. She had presented to the emergency department on 01/21/2023 with concerns for dizziness. She had some vertigo-like symptoms with difficulty standing and walking and feeling off balance. This was preceded with some abdominal cramping and diarrhea about 2 weeks prior. She was admitted on 01/21/2023 for short stay and was discharged yesterday on 01/22/2023. CT scan on 01/21/2023 revealed cholelithiasis and mild splenomegaly. She did have a gallbladder ultrasound done yesterday prior to discharge which revealed 2.6 cm gallstone present in the gallbladder with gallbladder wall thickening measuring 5 mm which was nonspecific. She was scheduled as an outpatient to see Dr. Bonner next Friday on 01/29/2023 She presented back to the emergency department this afternoon on 01/23/2023 with concerns for shortness of breath. Upon arrival to the emergency department she showed some findings of hypoxia with decreased oxygen saturations. Denies any cough or fever. Chest x-ray reveals right base opacities worrisome for pneumonia. Patient has had some postprandial diffuse bloating and abdominal pain and avoided eating. Patient states that she wants her gallbladder out. Given her findings on CT scan of gallstones with mild leukocytosis surgery was contacted for consultation. She has a HIDA scan pending. Of note, patient has previously undergone laparotomy for what sounds like a hiatal hernia many years ago and has had subsequent laparoscopic incisional hernia repairs in [facility] in July 2021. [facility] Disclaimer: The information contained in this section may have been updated after the patient was seen, as this information can be updated by other users. Medical History Acute exacerbation of chronic obstructive airways disease Atrial fibrillation COPD (chronic obstructive pulmonary disease) CVA (cerebral vascular accident) Hyperlipidemia Hypertension Hypothyroidism Hypothyroidism Melanoma Vertigo Surgical History H/O dilation and curettage H/O laparoscopy H/O partial thyroidectomy H/O: hysterectomy History of tonsillectomy Previous back surgery Tubal ligation status Family History Father Lung cancer Mother Parkinsons Sister Kidney disease Social History Smoking Status: Former smoker alcohol intake: never current occupational status: retired Travel in the last 8 weeks: None Meds Home Medications and Allergies Home Medications Medication Instructions Recorded Confirmed Type atorvastatin 10 mg tablet 10 mg PO DAILY High cholesterol 04/16/22 01/23/23 History budesonide-formoterol HFA 160 2 puff inhalation BID Breathing 04/16/22 01/23/23 History mcg-4.5 mcg/actuation aerosol problems inhaler (Symbicort) fluticasone propionate 50 2 spray intranasal DAILY Allergy 04/16/22 01/23/23 History mcg/actuation nasal symptoms spray,suspension furosemide 40 mg tablet 40 mg PO DAILY Fluid / Swelling 04/16/22 01/23/23 History ipratropium 0.5 mg-albuterol 3 mg 1 ml inhalation QIDP PRN Breathing 04/16/22 01/23/23 History (2.5 mg base)/3 mL nebulization Problems soln levothyroxine 75 mcg tablet 75 mcg PO DAILY Thyroid 04/16/22 01/23/23 History losartan 50 mg tablet 50 mg PO BID High blood pressure 04/16/22 01/23/23 History metoprolol tartrate 50 mg
[2023-01-23 20:19] LABS: Troponin I 0.06 ng/ml (0.00-0.034)
[2023-01-24] VITALS (8 sets, daily range): BP systolic 124–156; BP diastolic 64–79; PULSE 68–72; RESP 18–26; TEMP 36.4–37; O2SAT 94–98; BMI 33.8
[2023-01-24 06:26] LABS: Basophils % 0.2 % (0.1-2.0); Eosinophils % 0.2 % (0.1-12.0); Hematocrit 37.9 % (37.0-47.0); Hemoglobin 12.1 g/dL (12.2-16.2); Lymphocytes # 0.9 K/mm3 (0.7-4.5); Lymphocytes % 9.4 % (10-50); Mean Corpuscular HGB Conc 31.8 g/dL (31.8-35.4); Mean Corpuscular Hemoglobin 30.4 pg (27.0-31.2); Mean Corpuscular Volume 95.8 fl (81-99); Mean Platelet Volume 10.8 fl (7.4-10.4); Monocytes # 0.6 K/mm3 (0.1-1.0); Monocytes % 5.9 % (1.7-9.3); Neutrophils # 8.2 K/mm3 (1.8-7.8); Neutrophils % 84.4 % (37.0-80.0); Platelet Count 167 K/mm3 (142-424); Red Blood Count 3.96 M/mm3 (4.20-5.40); Red Cell Distribution Width 13.8 % (11.5-17.5); White Blood Count 9.7 K/mm3 (4.8-10.8)
[2023-01-24 06:34] LABS: Chloride 108 mmol/L (98-107)
[2023-01-24 06:36] LABS: Potassium 3.8 mmoL/L (3.5-5.1)
[2023-01-24 06:37] LABS: Blood Urea Nitrogen 16 mg/dl (7-17); Calcium 8.7 mg/dl (8.4-10.2); Carbon Dioxide 23 mmol/L (22.0-30.0); Creatinine Clearance Estimated 84 mL/min (50-200); Estimated Glomerular Filt Rate 70 ml/min (>60); GFR (African American) 85 ML/MIN (>60); Glucose 137 mg/dl (74-100)
[2023-01-24 06:38] LABS: Albumin Level 3.3 g/dl (3.5-5.0); Globulin 3.3 g/dL (1.3-3.2); Total Protein,Serum 6.6 g/dl (6.3-8.2)
[2023-01-24 06:54] LABS: Anion Gap 13.8 mEq/L (5-15); Sodium 141 mmol/L (136-145)
[2023-01-24 06:57] LABS: Alanine Aminotransferase 51 U/L (12-78); Alkaline Phosphatase 125 U/L (38-126); Aspartate Amino Transferase 47 U/L (14-36); Bilirubin,Total 0.8 mg/dl (0.2-1.3)
--- NOTE | 2023-01-24 07:00 | XR_ITS ---
FINAL REPORT CLINICAL HISTORY: [facility] COMPARISON: 01/23/2023 FINDINGS: Cardiomegaly is noted. A left subclavian pacer is once again identified. There is improving aeration particularly in the right lung when compared to the film of 01/23. A small left pleural effusion is now present. There is no pneumothorax. The bony thorax is intact. IMPRESSION: Improving aeration in the right lung since yesterday's exam. Cardiomegaly persists, unchanged, and a small left pleural effusion is now noted. Reviewed, Interpreted and Dictated by Hi Payan III, MD Transcribed by Yue Martinez Authenticated and [facility]
--- NOTE | 2023-01-24 08:00 | EXP.PN ---
Subjective *Date: 01/24/23 *Time: 10:00 Interval history: No acute events overnight She has had good urine output but undocumented she feels a little less short of breath continues to have postprandial abdominal discomfort/distension Exam Data for Last 24 hours Vital signs and Labs for Last 24 Hours: Temp Pulse Resp BP Pulse Ox O2 Del Method O2 Flow Rate 97.7 F 72 18 135/67 97 Nasal Cannula 2 01/24/23 04:00 01/24/23 06:32 01/24/23 04:00 01/24/23 04:00 01/24/23 06:32 01/24/23 06:59 01/24/23 06:59 Laboratory Results - last 24 hr 01/23/23 13:53: VBG pH 7.45 H, VBG pCO2 27.0 L, VBG pO2 150.7 H, VBG HCO3 18.5 L, VBG Total CO2 19.3 L, VBG O2 Saturation 99.1 H, VBG Base Excess -5.5 L 01/23/23 14:15: WBC 14.6 H D, RBC 4.08 L, Hgb 12.7, Hct 39.5, MCV 96.8, MCH 31.1, MCHC 32.2, RDW 14.0, Plt Count 185, MPV 9.7, Neut % (Auto) 84.8 H, Lymph % (Auto) 7.2 L, [place] % (Auto) 6.9, Eos % (Auto) 0.9, Baso % (Auto) 0.2, Neut # (Auto) 12.4 H, Lymph # (Auto) 1.1, [place] # (Auto) 1.0, Eos # (Auto) 0.1, Baso # (Auto) 0.0, Sodium 141, Potassium 3.9, Chloride 109 H, Carbon Dioxide 22, Anion Gap 13.9, BUN 13, Creatinine 0.70 D, Estimated Creat Clear 81, Estimated GFR 82, Est GFR ( Amer) 99 D, Glucose 131 H, Lactate 1.0, Calcium 8.5, Total Bilirubin 1.4 H, AST 60 H D, ALT 49 D, Alkaline Phosphatase 138 H, Troponin I 0.04 H, NT-Pro-B Natriuret Pep 6270 H, Total Protein 7.0, Albumin 3.6 D, Globulin 3.4 H, Albumin/Globulin Ratio 1.1, TSH 5.66 H D, Thyroxine (T4) 9.4 01/23/23 14:41: SARS-CoV-2 (PCR) Not detected, Influenza A Untype (PCR) Not detected, Influenza Type B (PCR) Not detected 01/23/23 17:45: Troponin I 0.06 H 01/23/23 19:53: Troponin I 0.06 H 01/24/23 06:10: WBC 9.7 D, RBC 3.96 L, Hgb 12.1 L, Hct 37.9, MCV 95.8, MCH 30.4, MCHC 31.8, RDW 13.8, Plt Count 167, MPV 10.8 H, Neut % (Auto) 84.4 H, Lymph % (Auto) 9.4 L, [place] % (Auto) 5.9, Eos % (Auto) 0.2, Baso % (Auto) 0.2, Neut # (Auto) 8.2 H, Lymph # (Auto) 0.9, [place] # (Auto) 0.6, Eos # (Auto) 0.0, Baso # (Auto) 0.0, Sodium 141, Potassium 3.8, Chloride 108 H, Carbon Dioxide 23, Anion Gap 13.8, BUN 16, Creatinine 0.80, Estimated Creat Clear 84, Estimated GFR 70, Est GFR ( Amer) 85, Glucose 137 H, Calcium 8.7, Total Bilirubin 0.8, AST 47 H, ALT 51, Alkaline Phosphatase 125, Total Protein 6.6, Albumin 3.3 L, Globulin 3.3 H, Albumin/Globulin Ratio 1.0 L Temp Pulse Resp BP Pulse Ox O2 Del Method 97.6 F 70 17 136/77 95 Room Air 01/22/23 15:07 01/22/23 15:07 01/22/23 15:07 01/22/23 15:07 01/22/23 15:07 01/22/23 15:07 Laboratory Results - last 24 hr 01/21/23 17:05: Troponin I < 0.01 01/22/23 06:10: WBC 7.4, RBC 3.87 L, Hgb 12.1 L D, Hct 37.5, MCV 96.9, MCH 31.2, MCHC 32.2, RDW 14.1, Plt Count 185, MPV 9.5, Neut % (Auto) 65.3, Lymph % (Auto) 24.8, [place] % (Auto) 9.0, Eos % (Auto) 0.6, Baso % (Auto) 0.3, Neut # (Auto) 4.8, Lymph # (Auto) 1.8, [place] # (Auto) 0.7, Eos # (Auto) 0.1, Baso # (Auto) 0.0, Sodium 142, Potassium 3.8, Chloride 110 H, Carbon Dioxide 25, Anion Gap 10.8, BUN 15, Creatinine 0.90, Estimated Creat Clear 81, Estimated GFR 61, Est GFR ( Amer) 74, Glucose 106 H, Calcium 8.6, Magnesium 1.8, Total Bilirubin 0.5, AST 26 D, ALT 24, Alkaline Phosphatase 93, Total Protein 5.8 L, Albumin 2.9 L D, Globulin 2.9, Albumin/Globulin Ratio 1.0 L, TSH 2.36 I & O for Last 24 hours: Intake & Output 01/21/23 01/22/23 01/23/23 01/24/23 23:59 23:59 23:59 23:59 Intake Total 1000 / 1000 Output Total 0 / 0 Balance 1000 / 1000 Weight 107.728 kg 107.303 kg Intake & Output 01/19/23 01/20/23 01/21/23 01/22/23 23:59 23:59 23:59 23:59 Intake Total 270 / 270 1600 / 1600 Output Total 0 / 0 0 / 0 Balance 270 / 270 1600 / 1600 Weight 103.476 kg 103.476 kg Microbiology Reports for the Last 24 Hours: Microbiology 01/21/23 11:57 Urine,Clean Catch Urine Culture - Preliminary NO GROWTH AFTER 24 HOURS Constitutio
--- NOTE | 2023-01-24 08:55 | HMH.PHAINT1 ---
Pharmacy Intervention Comments: MEDICATION RECONCILIATION COMPLETED ON PATIENT USING EXTERNAL FILL HISTORY FROM PHARMACY AND DISCHARGE SUMMARY FROM PREVIOUS ADMISSION. -MADAI WELCH, LAMARD
--- NOTE | 2023-01-24 10:35 | CT_ITS ---
FINAL REPORT TECHNIQUE: Pre-and postcontrast images of the abdomen and pelvis were performed by computed tomography. Extensive 3-D reconstruction images were performed. A CTA was performed. This study was performed with techniques to keep radiation doses as low as reasonably achievable (ALARA). Individualized dose reduction techniques using automated exposure control or adjustment of mA and/or kV according to the patient's size were employed. CLINICAL HISTORY: sma stenosis COMPARISON: none FINDINGS: ABDOMEN/PELVIS: There are small pleural effusions. There is mild bibasilar atelectasis. No evidence of aneurysm or dissection. Precontrast images demonstrate no evidence of nephrolithiasis. No adrenal masses are identified. The liver, spleen and pancreas are unremarkable. A gallstone is seen in the gallbladder. The appendix is normal. There are several diverticula in the sigmoid colon. The patient is post hysterectomy. There are postoperative changes from fusion of the lower lumbar spine. CTA: There is no evidence of aortic aneurysm. There is no evidence of aortic stenosis. The celiac axis, superior mesenteric artery and inferior mesenteric artery are patent without stenosis. There is no evidence of renal artery stenosis. The iliac arteries are unremarkable, without stenosis. The internal iliac arteries are patent. IMPRESSION: No evidence of stenosis or occlusion. Cholelithiasis. Diverticulosis. Reviewed, Interpreted and Dictated by Hi Payan III, MD Transcribed by Daya Grover Authenticated and . [facility]
--- NOTE | 2023-01-24 12:07 | P.PN_ITS ---
Subjective Narrative: Patient still with some respiratory symptoms and shortness of air. No abdominal complaints. Cardiology has seen the patient. Patient underwent abdominal CT angiogram this morning. No evidence of celiac, SMA, TABATHA stenosis. Exam Data for Last 24 hours Vital signs and Labs for Last 24 Hours: Temp Pulse Resp BP Pulse Ox O2 Del Method O2 Flow Rate 97.7 F 68 26 H 153/74 H 98 Nasal Cannula 2 01/24/23 08:00 01/24/23 08:00 01/24/23 08:00 01/24/23 08:00 01/24/23 08:00 01/24/23 08:00 01/24/23 08:00 Laboratory Results - last 24 hr 01/23/23 13:53: VBG pH 7.45 H, VBG pCO2 27.0 L, VBG pO2 150.7 H, VBG HCO3 18.5 L , VBG Total CO2 19.3 L, VBG O2 Saturation 99.1 H, VBG Base Excess -5.5 L 01/23/23 14:15: WBC 14.6 H D, RBC 4.08 L, Hgb 12.7, Hct 39.5, MCV 96.8, MCH 31.1, MCHC 32.2, RDW 14.0, Plt Count 185, MPV 9.7, Neut % (Auto) 84.8 H, Lymph % (Auto) 7.2 L, [place] % (Auto) 6.9, Eos % (Auto) 0.9, Baso % (Auto) 0.2, Neut # (Auto) 12.4 H, Lymph # (Auto) 1.1, [place] # (Auto) 1.0, Eos # (Auto) 0.1, Baso # (Auto) 0.0, Sodium 141, Potassium 3.9, Chloride 109 H, Carbon Dioxide 22, Anion Gap 13.9, BUN 13, Creatinine 0.70 D, Estimated Creat Clear 81, Estimated GFR 82, Est GFR ( Amer) 99 D, Glucose 131 H, Lactate 1.0, Calcium 8.5, Total Bilirubin 1.4 H, AST 60 H D, ALT 49 D, Alkaline Phosphatase 138 H, Troponin I 0.04 H, NT-Pro-B Natriuret Pep 6270 H, Total Protein 7.0, Albumin 3.6 D, Globulin 3.4 H, Albumin/Globulin Ratio 1.1, TSH 5.66 H D, Thyroxine (T4) 9.4 01/23/23 14:41: SARS-CoV-2 (PCR) Not detected, Influenza A Untype (PCR) Not detected, Influenza Type B (PCR) Not detected 01/23/23 17:45: Troponin I 0.06 H 01/23/23 19:53: Troponin I 0.06 H 01/24/23 06:10: WBC 9.7 D, RBC 3.96 L, Hgb 12.1 L, Hct 37.9, MCV 95.8, MCH 30 .4, MCHC 31.8, RDW 13.8, Plt Count 167, MPV 10.8 H, Neut % (Auto) 84.4 H, Lymph % (Auto) 9.4 L, [place] % (Auto) 5.9, Eos % (Auto) 0.2, Baso % (Auto) 0.2, Neut # (Auto) 8.2 H, Lymph # (Auto) 0.9, [place] # (Auto) 0.6, Eos # (Auto) 0.0, Baso # (Auto) 0.0, Sodium 141, Potassium 3.8, Chloride 108 H, Carbon Dioxide 23, Anion Gap 13.8, BUN 16, Creatinine 0.80, Estimated Creat Clear 84, Estimated GFR 70, Est GFR ( Amer) 85, Glucose 137 H, Calcium 8.7, Total Bilirubin 0.8, AST 47 H, ALT 51, Alkaline Phosphatase 125, Total Protein 6.6, Albumin 3.3 L, Globulin 3.3 H, Albumin/Globulin Ratio 1.0 L I & O for Last 24 hours: Intake & Output 01/22/23 01/23/23 01/24/23 01/25/23 11:59 11:59 11:59 11:59 Intake Total 1000 / 1000 Output Total 0 / 0 Balance 1000 / 1000 Weight 236 lb 9 oz *Routine Respiratory Exam Respiratory: Present diminished air movement Progress Note: A&P Assessment and plan (1) Biliary colic: Status: Acute Assessment and plan: Would not plan for immediate cholecystectomy. Cardiology evaluation undergoing. Apparently plan is for stress test this afternoon.
--- NOTE | 2023-01-24 13:09 | EXP.CARD.CON ---
History of Present Illness History of Present Illness Consult date: 01/24/23 Requesting physician: Arley Schwartz Consult reason: shortness of breath Chief complaint: SOA History of present illness: This is a 72-year-old white female who presented to the emergency department with complaints of shortness of breath. She has a past medical history of CVA, atrial fibrillation on long-term anticoagulation, status post pacemaker placement, hypertension, hyperlipidemia, COPD and melanoma. The patient had previously been admitted to the hospital this week for dehydration and biliary colic. The patient was treated with IV fluids and discharged from the hospital. She returned back to the emergency department 1 day later with a 1 day history of shortness of breath. The patient states that she always has some baseline shortness of breath but it significantly worsened after she was admitted to the hospital. It was occurring at rest. Worse with exertion. It improves with rest. She denied associated cough or fever. She denied any lower extremity edema. She did have some orthopnea. She continued to have worsening edema and pain in her abdomen. The patient states that she continues to have postprandial abdominal pain with distention while she is eating and after she eats. She states that this has been going on for several weeks and has not improved. She states that she just does not feel well. She denies any chest pain or pressure. She denies any fever, chills, vomiting or diarrhea. She states that she notices that she is really not able to eat and drink much. She states that she feels really full really fast and then she gets abdominal pain and bloating. She has not noticed any weight loss. [facility] Disclaimer: The information contained in this section may have been updated after the patient was seen, as this information can be updated by other users. Medical History (Updated 01/24/23 @ 13:16 by Emilie Sullivan APRN) Acute exacerbation of chronic obstructive airways disease Atrial fibrillation COPD (chronic obstructive pulmonary disease) Current use of custodial anticoagulation CVA (cerebral vascular accident) Hyperlipidemia Hypertension Hypothyroidism Hypothyroidism Melanoma Pacemaker at end of battery life Vertigo Surgical History H/O dilation and curettage H/O laparoscopy H/O partial thyroidectomy H/O: hysterectomy History of tonsillectomy Previous back surgery Tubal ligation status Family History Father Lung cancer Mother Parkinsons Sister Kidney disease Social History Smoking Status: Former smoker alcohol intake: never current occupational status: retired Travel in the last 8 weeks: None Review of Systems Review of Systems Review of systems:: pertinent systems reviewed and negative unless documented below Constitutional Constitutional: Reports system reviewed and no additional complaints, except as documented, Reports fatigue, Reports increased appetite, Reports poor appetite and Reports lethargy Eyes Eyes: Reports system reviewed and no additional complaints, except as documented ENT Ears, Nose, Mouth, and Throat: Reports system reviewed and no additional complaints, except as documented *Cardiovascular Cardiovascular: Reports system reviewed and no additional complaints, except as documented, Denies chest pain, Reports dyspnea, Reports dyspnea on exertion, Denies leg edema and Reports orthopnea *Respiratory Respiratory: Reports system reviewed and no additional complaints, except as documented, Reports dyspnea and Reports dyspnea on exertion *Gastrointestinal Gastrointestinal: Reports system reviewed and no additional complaints, except as documented, Reports abdominal pain, Reports bloating, Reports cramping, Denies heartburn and Denies vomiting *Genitourinary Gen
[2023-01-25] VITALS (9 sets, daily range): BP systolic 137–170; BP diastolic 56–76; PULSE 69–70; RESP 18–20; TEMP 36.6–36.8; O2SAT 93–97; BMI 33.1
--- NOTE | 2023-01-25 04:29 | PC.NURSE ---
Patient alert and oriented this shift. Remains on 2L NC with o2 sats above 90%. Patient gets SOA with exertion. Patient on strict I&Os 1500ml fluid restriction. Educated patient on importance of fluid restriction. No complaints voiced at this time. Call garcia and personal items in reach. POC ongoing.
[2023-01-25 07:18] LABS: Basophils % 0.1 % (0.1-2.0); Eosinophils # 0.1 K/mm3 (0.0-0.4); Eosinophils % 0.8 % (0.1-12.0); Hematocrit 36.8 % (37.0-47.0); Hemoglobin 11.9 g/dL (12.2-16.2); Lymphocytes # 1.6 K/mm3 (0.7-4.5); Lymphocytes % 13.3 % (10-50); Mean Corpuscular HGB Conc 32.2 g/dL (31.8-35.4); Mean Platelet Volume 10.5 fl (7.4-10.4); Monocytes # 0.8 K/mm3 (0.1-1.0); Monocytes % 6.6 % (1.7-9.3); Neutrophils # 9.5 K/mm3 (1.8-7.8); Neutrophils % 79.1 % (37.0-80.0); Platelet Count 206 K/mm3 (142-424); Red Blood Count 3.83 M/mm3 (4.20-5.40); Red Cell Distribution Width 13.9 % (11.5-17.5); White Blood Count 11.9 K/mm3 (4.8-10.8)
[2023-01-25 07:32] LABS: Chloride 107 mmol/L (98-107)
[2023-01-25 07:33] LABS: Potassium 3.3 mmoL/L (3.5-5.1); Sodium 141 mmol/L (136-145)
[2023-01-25 07:35] LABS: Alanine Aminotransferase 35 U/L (12-78); Alkaline Phosphatase 122 U/L (38-126); Aspartate Amino Transferase 31 U/L (14-36); Bilirubin,Total 0.8 mg/dl (0.2-1.3); Blood Urea Nitrogen 17 mg/dl (7-17); Creatinine Clearance Estimated 82 mL/min (50-200); Estimated Glomerular Filt Rate 61 ml/min (>60); GFR (African American) 74 ML/MIN (>60)
[2023-01-25 07:36] LABS: Albumin Level 3.2 g/dl (3.5-5.0); Anion Gap 12.3 mEq/L (5-15); Calcium 8.6 mg/dl (8.4-10.2); Carbon Dioxide 25 mmol/L (22.0-30.0); Globulin 3.2 g/dL (1.3-3.2); Glucose 79 mg/dl (74-100); Total Protein,Serum 6.4 g/dl (6.3-8.2)
--- NOTE | 2023-01-25 11:22 | EXP.SURG.PN ---
Subjective Patient reports: no new complaints Exam Data for Last 24 hours Vital signs and Labs for Last 24 Hours: Temp Pulse Resp BP Pulse Ox O2 Del Method O2 Flow Rate 98.2 F 70 18 152/74 H 97 Nasal Cannula 2 01/25/23 11:15 01/25/23 11:15 01/25/23 11:15 01/25/23 11:15 01/25/23 11:15 01/25/23 11:15 01/25/23 11:15 Laboratory Results - last 24 hr 01/25/23 06:56: WBC 11.9 H, RBC 3.83 L, Hgb 11.9 L, Hct 36.8 L, MCV 96.0, MCH 31.0, MCHC 32.2, RDW 13.9, Plt Count 206, MPV 10.5 H, Neut % (Auto) 79.1, Lymph % (Auto) 13.3, [place] % (Auto) 6.6, Eos % (Auto) 0.8, Baso % (Auto) 0.1, Neut # (Auto) 9.5 H, Lymph # (Auto) 1.6, [place] # (Auto) 0.8, Eos # (Auto) 0.1, Baso # (Auto) 0.0, Sodium 141, Potassium 3.3 L, Chloride 107, Carbon Dioxide 25, Anion Gap 12.3, BUN 17, Creatinine 0.90, Estimated Creat Clear 82, Estimated GFR 61, Est GFR ( Amer) 74, Glucose 79, Calcium 8.6, Total Bilirubin 0.8, AST 31 D, ALT 35 D, Alkaline Phosphatase 122, Total Protein 6.4, Albumin 3.2 L, Globulin 3.2, Albumin/Globulin Ratio 1.0 L I & O for Last 24 hours: Intake & Output 01/22/23 01/23/23 01/24/23 01/25/23 11:59 11:59 11:59 11:59 Intake Total 1000 / 1000 750 / 750 Output Total 0 / 0 2700 / 2700 Balance 1000 / 1000 -1950 / -1950 Weight 236 lb 9 oz 231 lb 6 oz *Routine Abdominal Exam Abdominal: Present soft Progress Note: A&P Assessment and plan (1) Biliary colic: Status: Acute (2) Pneumonia: Status: Acute (3) CHF exacerbation: Status: Acute (4) COPD (chronic obstructive pulmonary disease): Status: Acute Assessment and Plan Assessment and Plan for All Diagnoses:: Cardiology eval in progress
--- NOTE | 2023-01-25 12:00 | EXP.PN ---
Subjective *Date: 01/25/23 *Time: 12:00 Interval history: No acute events overnight. No shortness of breath at rest but does get short of breath with minimal exertion. She denies chest pain. She feels dizzy with minimal exertion. Exam Data for Last 24 hours Vital signs and Labs for Last 24 Hours: Temp Pulse Resp BP Pulse Ox O2 Del Method O2 Flow Rate 98.2 F 70 18 152/74 H 97 Nasal Cannula 2 01/25/23 11:15 01/25/23 11:15 01/25/23 11:15 01/25/23 11:15 01/25/23 11:15 01/25/23 11:15 01/25/23 11:15 Laboratory Results - last 24 hr 01/25/23 06:56: WBC 11.9 H, RBC 3.83 L, Hgb 11.9 L, Hct 36.8 L, MCV 96.0, MCH 31.0, MCHC 32.2, RDW 13.9, Plt Count 206, MPV 10.5 H, Neut % (Auto) 79.1, Lymph % (Auto) 13.3, [place] % (Auto) 6.6, Eos % (Auto) 0.8, Baso % (Auto) 0.1, Neut # (Auto) 9.5 H, Lymph # (Auto) 1.6, [place] # (Auto) 0.8, Eos # (Auto) 0.1, Baso # (Auto) 0.0, Sodium 141, Potassium 3.3 L, Chloride 107, Carbon Dioxide 25, Anion Gap 12.3, BUN 17, Creatinine 0.90, Estimated Creat Clear 82, Estimated GFR 61, Est GFR ( Amer) 74, Glucose 79, Calcium 8.6, Total Bilirubin 0.8, AST 31 D, ALT 35 D, Alkaline Phosphatase 122, Total Protein 6.4, Albumin 3.2 L, Globulin 3.2, Albumin/Globulin Ratio 1.0 L Temp Pulse Resp BP Pulse Ox O2 Del Method 97.6 F 70 17 136/77 95 Room Air 01/22/23 15:07 01/22/23 15:07 01/22/23 15:07 01/22/23 15:07 01/22/23 15:07 01/22/23 15:07 Laboratory Results - last 24 hr 01/21/23 17:05: Troponin I < 0.01 01/22/23 06:10: WBC 7.4, RBC 3.87 L, Hgb 12.1 L D, Hct 37.5, MCV 96.9, MCH 31.2, MCHC 32.2, RDW 14.1, Plt Count 185, MPV 9.5, Neut % (Auto) 65.3, Lymph % (Auto) 24.8, [place] % (Auto) 9.0, Eos % (Auto) 0.6, Baso % (Auto) 0.3, Neut # (Auto) 4.8, Lymph # (Auto) 1.8, [place] # (Auto) 0.7, Eos # (Auto) 0.1, Baso # (Auto) 0.0, Sodium 142, Potassium 3.8, Chloride 110 H, Carbon Dioxide 25, Anion Gap 10.8, BUN 15, Creatinine 0.90, Estimated Creat Clear 81, Estimated GFR 61, Est GFR ( Amer) 74, Glucose 106 H, Calcium 8.6, Magnesium 1.8, Total Bilirubin 0.5, AST 26 D, ALT 24, Alkaline Phosphatase 93, Total Protein 5.8 L, Albumin 2.9 L D, Globulin 2.9, Albumin/Globulin Ratio 1.0 L, TSH 2.36 I & O for Last 24 hours: Intake & Output 01/22/23 01/23/23 01/24/23 01/25/23 23:59 23:59 23:59 23:59 Intake Total 1000 / 1000 400 / 510 350 / 350 Output Total 0 / 0 1000 / 1000 1700 / 1700 Balance 1000 / 1000 -600 / -490 -1350 / -1350 Weight 107.728 kg 107.303 kg 104.95 kg Intake & Output 01/19/23 01/20/23 01/21/23 01/22/23 23:59 23:59 23:59 23:59 Intake Total 270 / 270 1600 / 1600 Output Total 0 / 0 0 / 0 Balance 270 / 270 1600 / 1600 Weight 103.476 kg 103.476 kg Microbiology Reports for the Last 24 Hours: Microbiology 01/21/23 11:57 Urine,Clean Catch Urine Culture - Preliminary NO GROWTH AFTER 24 HOURS Constitutional Constitutional: no acute distress *Routine HEENT Exam Head: Present normocephalic Eye: Present EOMI and PERRL ENT: Present mucous membranes moist *Routine Neck Exam Neck: Present supple; Absent lymphadenopathy *Routine Respiratory Exam Respiratory: Present CTA bilaterally *Routine Cardiovascular Exam Cardiovascular: Present RRR *Routine Abdominal Exam Abdominal: Present soft and normoactive bowel sounds; Absent tenderness *Routine Extremities Exam Extremities: Absent cyanosis, clubbing or edema *Routine Skin Exam Skin: Present warm; Absent rash *Routine Neurological Exam Neurological: Present alert and oriented X3 Assessment and Plan *Assessment and plan (1) Biliary colic: Status: Acute Category: Medical Code(s): K80.50 - Calculus of bile duct without cholangitis or cholecystitis without obstruction (2) Pneumonia: Status: Acute Qualifiers: Laterality: unspecified laterality Lung location: unspecified part of lung Pneumonia type: due to unspecified organism Qualified Code
--- NOTE | 2023-01-25 18:36 | PC.NURSE ---
PT SUCCESSFULLY WEANED OFF O2 SUPPORT THIS SHIFT BUT STILL GETS SOB WITH EXERTION.
--- NOTE | 2023-01-25 19:30 | PC.NURSE ---
PT REFUSED SCUDS R/T HAVING TO GET TO THE TOILET QUICKLY
--- NOTE | 2023-01-25 21:05 | PC.NURSE ---
pt reported loose stool and vomiting, refused antiemetic at this time. POC ongoing
[2023-01-26] VITALS (7 sets, daily range): BP systolic 125–165; BP diastolic 54–78; PULSE 69–70; RESP 17–22; TEMP 36.6–36.8; O2SAT 94–98; BMI 34.2
[2023-01-26 02:59] LABS: Adenovirus F 40/41, stool Not Detected (NotDetected); Astrovirus Not Detected (NotDetected); Campylobacter Not Detected (NotDetected); Cryptosporidium Not Detected (NotDetected); Cyclospora Cayetanesis Not Detected (NotDetected); Entamoeba histolytica Not Detected (NotDetected); Enteroaggregative E coli Not Detected (NotDetected); Enterotoxigenic E coli Not Detected (NotDetected); Giardia lamblia Not Detected (NotDetected); Norovirus Not Detected (NotDetected); Plesimonas Shigalloides, PCR Not Detected (NotDetected); Rotavirus A Not Detected (NotDetected); Salmonella, PCR Not Detected (NotDetected); Sapovirus Not Detected (NotDetected); Shiga-like toxin E coli Not Detected (NotDetected); Shigella Enterovasive E coli Not Detected (NotDetected); Vibrio Cholerae Not Detected (NotDetected); Vibrio, PCR Not Detected (NotDetected); Yersinia Entercolitica, PCR Not Detected (NotDetected)
[2023-01-26 05:25] LABS: Clostridium Difficile A/B, PCR Detected (NotDetected); Enteropathogenic E coli Detected (NotDetected)
--- NOTE | 2023-01-26 05:27 | PC.NURSE ---
0524 lab called with critical result for diarrhea panel 0525 ahsan feldman packaging sales consultant notified
--- NOTE | 2023-01-26 06:21 | PC.NURSE ---
RA t/o shift, denies SOA. contact enteric precautions. skin clear, IV patent, SL. ambulates independently to toilet/BSC, last bm 01/26. strict I/O, 1.5L restrictions. home meds in pt room drawer, locked. bed locked and in lowest position, cb within reach. POC ongoing.
--- NOTE | 2023-01-26 07:00 | XR_ITS ---
PROCEDURE INFORMATION: Exam: XR Chest Exam date and time: 01/26/2023 8:29 AM Age: 72 years old Clinical indication: Shortness of breath; Additional info: Chf TECHNIQUE: Imaging protocol: Radiologic exam of the chest. Views: 1 view. COMPARISON: 1. CR XR CHEST 2V 01/24/2023 7:[address] ANGIO CHEST PE PROTOCOL 01/21/2023 12:14 PM FINDINGS: Tubes, catheters and devices: A pacemaker device is present, and its leads are in appropriate position. Lungs: No focal consolidation. No pulmonary vascular congestion. Pleural spaces: Unremarkable. No pleural effusion. No pneumothorax. Heart/Mediastinum: Left pulmonary artery prominence. Upper limits normal cardiac size. Prominent fat pad adjacent to the left heart. Vasculature: Right hilar prominence which appears vascular on comparison CTA chest. Bones/joints: Osseous structures appear intact. IMPRESSION: No acute findings.
--- NOTE | 2023-01-26 08:24 | EXP.PN ---
Subjective *Date: 01/26/23 *Time: 23:25 Interval history: The patient developed diarrhea yesterday. GI panel was positive for c. diff. so the patient was started on PO vancomycin. She had one loose BM today. Her appetite is improving. She continues to feel very short of breath with minimal exertion. She denies chest pain. Exam Data for Last 24 hours Vital signs and Labs for Last 24 Hours: Temp Pulse Resp BP Pulse Ox O2 Del Method O2 Flow Rate 98.0 F 70 22 125/54 L 98 Room Air 93 01/26/23 04:00 01/26/23 04:00 01/26/23 04:00 01/26/23 04:00 01/26/23 04:00 01/26/23 06:29 01/26/23 00:39 FiO2 28 01/25/23 18:53 Laboratory Results - last 24 hr 01/26/23 02:55: Stl Aeromonas (PCR) Not detected, Stl C. cayetanensis PCR Not detected, Stool Rotavirus (PCR) Not detected, Stl Adenov F 40/41 PCR Not detected, Stool Astrovirus (PCR) Not detected, Stool Campylobacter PCR Not detected, Stl C.difficile Tox PCR Detected A, Stool Cryptosporidium PCR Not detected, Stl E.coli Shiga Tox PCR Not detected, Stool E coli O157 PCR Not detected, Stl Enterotoxigenic E PCR Not detected, Stool EPEC (PCR) Detected A, Stool EAEC (PCR) Not detected, Stl E. histolytica PCR Not detected, Stool Giardia Lamblia PCR Not detected, Stool Salmonella PCR Not detected, Stool Sapovirus (PCR) Not detected, Stl P. shigelloides PCR Not detected, Stl Shigella/EIEC PCR Not detected, St Y.enterocolitica PCR Not detected, Stool Vibrio (PCR) Not detected, Stl Vibrio cholerae PCR Not detected, Stl Norovirus GI/GII PCR Not detected Temp Pulse Resp BP Pulse Ox O2 Del Method 97.6 F 70 17 136/77 95 Room Air 01/22/23 15:07 01/22/23 15:07 01/22/23 15:07 01/22/23 15:07 01/22/23 15:07 01/22/23 15:07 Laboratory Results - last 24 hr 01/21/23 17:05: Troponin I < 0.01 01/22/23 06:10: WBC 7.4, RBC 3.87 L, Hgb 12.1 L D, Hct 37.5, MCV 96.9, MCH 31.2, MCHC 32.2, RDW 14.1, Plt Count 185, MPV 9.5, Neut % (Auto) 65.3, Lymph % (Auto) 24.8, [place] % (Auto) 9.0, Eos % (Auto) 0.6, Baso % (Auto) 0.3, Neut # (Auto) 4.8, Lymph # (Auto) 1.8, [place] # (Auto) 0.7, Eos # (Auto) 0.1, Baso # (Auto) 0.0, Sodium 142, Potassium 3.8, Chloride 110 H, Carbon Dioxide 25, Anion Gap 10.8, BUN 15, Creatinine 0.90, Estimated Creat Clear 81, Estimated GFR 61, Est GFR ( Amer) 74, Glucose 106 H, Calcium 8.6, Magnesium 1.8, Total Bilirubin 0.5, AST 26 D, ALT 24, Alkaline Phosphatase 93, Total Protein 5.8 L, Albumin 2.9 L D, Globulin 2.9, Albumin/Globulin Ratio 1.0 L, TSH 2.36 I & O for Last 24 hours: Intake & Output 01/23/23 01/24/23 01/25/23 01/26/23 23:59 23:59 23:59 23:59 Intake Total 1000 / 1000 400 / 510 1255 / 1255 Output Total 0 / 0 1000 / 1000 2350 / 2350 0 / 0 Balance 1000 / 1000 -600 / -490 -1095 / -1095 0 / 0 Weight 107.728 kg 107.303 kg 104.95 kg 108.59 kg Intake & Output 01/19/23 01/20/23 01/21/23 01/22/23 23:59 23:59 23:59 23:59 Intake Total 270 / 270 1600 / 1600 Output Total 0 / 0 0 / 0 Balance 270 / 270 1600 / 1600 Weight 103.476 kg 103.476 kg Microbiology Reports for the Last 24 Hours: Microbiology 01/23/23 14:18 Blood Blood Culture - Preliminary NO GROWTH AFTER 48 HOURS 01/23/23 14:18 Blood Blood Culture - Preliminary NO GROWTH AFTER 48 HOURS Microbiology 01/21/23 11:57 Urine,Clean Catch Urine Culture - Preliminary NO GROWTH AFTER 24 HOURS Constitutional Constitutional: no acute distress *Routine HEENT Exam Head: Present normocephalic Eye: Present EOMI and PERRL ENT: Present mucous membranes moist *Routine Neck Exam Neck: Present supple; Absent lymphadenopathy *Routine Respiratory Exam Respiratory: Present CTA bilaterally *Routine Cardiovascular Exam Cardiovascular: Present RRR *Routine Abdominal Exam Abdominal: Present soft and normoactive bowel sounds; Absent tenderness *Routine Extremities Exam Extremities: Absent cyanosis, club
[2023-01-26 08:51] LABS: Magnesium 1.9 mg/dl (1.6-2.3)
[2023-01-26 08:58] LABS: Basophils % 0.4 % (0.1-2.0); Eosinophils # 0.1 K/mm3 (0.0-0.4); Eosinophils % 1.1 % (0.1-12.0); Hematocrit 40.5 % (37.0-47.0); Hemoglobin 12.8 g/dL (12.2-16.2); Lymphocytes # 1.9 K/mm3 (0.7-4.5); Lymphocytes % 22.9 % (10-50); Mean Corpuscular HGB Conc 31.7 g/dL (31.8-35.4); Mean Corpuscular Hemoglobin 30.9 pg (27.0-31.2); Mean Corpuscular Volume 97.6 fl (81-99); Mean Platelet Volume 10.8 fl (7.4-10.4); Monocytes # 0.6 K/mm3 (0.1-1.0); Neutrophils # 5.5 K/mm3 (1.8-7.8); Neutrophils % 68.6 % (37.0-80.0); Platelet Count 231 K/mm3 (142-424); Red Blood Count 4.15 M/mm3 (4.20-5.40); White Blood Count 8.1 K/mm3 (4.8-10.8)
[2023-01-26 09:17] LABS: Chloride 105 mmol/L (98-107)
[2023-01-26 09:18] LABS: Potassium 3.5 mmoL/L (3.5-5.1); Sodium 141 mmol/L (136-145)
[2023-01-26 09:20] LABS: Alanine Aminotransferase 32 U/L (12-78); Alkaline Phosphatase 126 U/L (38-126); Aspartate Amino Transferase 33 U/L (14-36); Bilirubin,Total 0.9 mg/dl (0.2-1.3); Blood Urea Nitrogen 16 mg/dl (7-17); Creatinine Clearance Estimated 85 mL/min (50-200); Estimated Glomerular Filt Rate 61 ml/min (>60); GFR (African American) 74 ML/MIN (>60)
[2023-01-26 09:21] LABS: Albumin Level 3.4 g/dl (3.5-5.0); Anion Gap 16.5 mEq/L (5-15); Carbon Dioxide 23 mmol/L (22.0-30.0); Globulin 3.4 g/dL (1.3-3.2); Glucose 88 mg/dl (74-100); Total Protein,Serum 6.8 g/dl (6.3-8.2)
[2023-01-26 09:30] LABS: NT Pro Brain Natriuretic Pep. 4370 pg/mL (0-125)
--- NOTE | 2023-01-26 10:56 | EXP.SURG.PN ---
Subjective Narrative: Patient states that her breathing is somewhat better. She had developed diarrhea. Stool sent and is positive for C. difficile and enteropathogenic E. coli. Exam Data for Last 24 hours Vital signs and Labs for Last 24 Hours: Temp Pulse Resp BP Pulse Ox O2 Del Method O2 Flow Rate 97.9 F 70 17 152/71 H 94 L Room Air 93 01/26/23 08:00 01/26/23 08:00 01/26/23 08:00 01/26/23 08:00 01/26/23 08:00 01/26/23 09:00 01/26/23 00:39 FiO2 28 01/25/23 18:53 Laboratory Results - last 24 hr 01/26/23 02:55: Stl Aeromonas (PCR) Not detected, Stl C. cayetanensis PCR Not detected, Stool Rotavirus (PCR) Not detected, Stl Adenov F 40/41 PCR Not detected, Stool Astrovirus (PCR) Not detected, Stool Campylobacter PCR Not detected, Stl C.difficile Tox PCR Detected A, Stool Cryptosporidium PCR Not detected, Stl E.coli Shiga Tox PCR Not detected, Stool E coli O157 PCR Not detected, Stl Enterotoxigenic E PCR Not detected, Stool EPEC (PCR) Detected A, Stool EAEC (PCR) Not detected, Stl E. histolytica PCR Not detected, Stool Giardia Lamblia PCR Not detected, Stool Salmonella PCR Not detected, Stool Sapovirus (PCR) Not detected, Stl P. shigelloides PCR Not detected, Stl Shigella/EIEC PCR Not detected, St Y.enterocolitica PCR Not detected, Stool Vibrio (PCR) Not detected, Stl Vibrio cholerae PCR Not detected, Stl Norovirus GI/GII PCR Not detected 01/26/23 07:25: WBC 8.1 D, RBC 4.15 L, Hgb 12.8, Hct 40.5, MCV 97.6, MCH 30.9, MCHC 31.7 L, RDW 14.0, Plt Count 231, MPV 10.8 H, Neut % (Auto) 68.6, Lymph % (Auto) 22.9, Fisher % (Auto) 7.0, Eos % (Auto) 1.1, Baso % (Auto) 0.4, Neut # (Auto) 5.5, Lymph # (Auto) 1.9, Fisher # (Auto) 0.6, Eos # (Auto) 0.1, Baso # (Auto) 0.0, Sodium 141, Potassium 3.5, Chloride 105, Carbon Dioxide 23, Anion Gap 16.5 H, BUN 16, Creatinine 0.90, Estimated Creat Clear 85, Estimated GFR 61, Est GFR ( Amer) 74, Glucose 88, Calcium 9.0, Magnesium 1.9, Total Bilirubin 0.9, AST 33, ALT 32, Alkaline Phosphatase 126, NT-Pro-B Natriuret Pep 4370 H, Total Protein 6.8, Albumin 3.4 L, Globulin 3.4 H, Albumin/Globulin Ratio 1.0 L I & O for Last 24 hours: Intake & Output 01/23/23 01/24/23 01/25/23 01/26/23 11:59 11:59 11:59 11:59 Intake Total 1000 / 1000 750 / 750 1385 / 1385 Output Total 0 / 0 2700 / 2700 650 / 650 Balance 1000 / 1000 -1950 / -1950 735 / 735 Weight 236 lb 9 oz 231 lb 6 oz 239 lb 6.4 oz Microbiology Reports for the Last 24 Hours: Microbiology 01/23/23 14:18 Blood Blood Culture - Preliminary NO GROWTH AFTER 48 HOURS 01/23/23 14:18 Blood Blood Culture - Preliminary NO GROWTH AFTER 48 HOURS *Routine Abdominal Exam Abdominal: Present soft; Absent tenderness Progress Note: A&P Assessment and plan (1) Biliary colic: Status: Acute Assessment and plan: Would not pursue cholecystectomy immediately as there is no evidence of acute cholecystitis. Some of her GI complaints may be secondary to enterocolitis. Would need full cardiology evaluation and disposition prior to consideration of cholecystectomy. (2) Pneumonia: Status: Acute (3) CHF exacerbation: Status: Acute (4) COPD (chronic obstructive pulmonary disease): Status: Acute
[2023-01-27] VITALS: BP 138/76; PULSE 70; RESP 22; TEMP 36.4; O2SAT 95; O2SAT 96
--- NOTE | 2023-01-27 | CA_ITS ---
APPROVED REPORT Exam: Pharmacologic Technologist: Melonie Marks Ht: 5 ft 10 in Wt: 236 lbs BSA: 2.24 m2 HR: 70 bpm BP: 165/85 mmHg Indications: Shortness of Air Medical History Medications: Spiriva,,,,, Levothyroxine,,,,, Metoprolol,,,,, Vitamin B12,,,,, Losartan,,,,, Atorvastatin,,,,, Flonase,,,,, Duoneb,,,,, SyMBICORT,,,,, BuPROPION,,,,, Sertraline,,,,, Furosemide,,,,, Stress Test Details Test: LEXISCAN HR Resting HR: 70 bpm Max Heart Rate (APMHR): 146 bpm Max HR Achieved: 70 bpm Target HR (85% APMHR): 124 bpm % of APMHR: 48 Recovery HR: 70 bpm BP Resting BP: 162.0/85.0 mmHg Max BP: 169.0/76.0 mmHg Recovery BP: 167.0/64.0 mmHg ECG Resting ECG: Ventricular paced/ Atrial fibrillation, Q-waves in inferior leads Stress ECG: No change Arrhythmia: None Clinical Exercise duration: 04:00 min Highest Stage Achieved: Exercise capacity: 1.0 METs Stress ECG Conclusion Symptoms: Chest pressure, dyspnea, nausea Arrhythmias/Ectopy: Atrial fibrillation throughout ST-T Changes: No significant ST changes Conclusion: Unremarkable Lexiscan stress test. Myoview images are reported separately. Test Summary REST . . . . . . . Resting REST 04:51 . . 70 . 162/ 85 . . Stage 1 . . . . . . . Myoview Injected Stage 1 01:00 . . 70 . . . . Stage 2 01:00 . . 70 . . . . Stage 3 01:00 . . 70 . 150/ 83 . . Stage 4 . . . . . . . chest pressure Stage 4 01:00 . . 70 . 169/ 76 . Stop exercise at 04:00 RECOVERY 01:00 . . 70 . 165/ 79 . . RECOVERY 02:00 . . 70 . 165/ 79 . . RECOVERY 03:00 . . 70 . 164/ 78 . . RECOVERY 03:54 . . 70 . 167/ 64 . . Electronically signed by : Lisa Jacobs, 01/27/2023 14:47:32
[2023-01-27 04:00] VITALS: BP 125/53; PULSE 70; RESP 22; TEMP 36.6; O2SAT 97; BMI 34.4
[2023-01-27 06:42] LABS: Basophils % 0.5 % (0.1-2.0); Eosinophils # 0.1 K/mm3 (0.0-0.4); Eosinophils % 1.6 % (0.1-12.0); Hematocrit 39.6 % (37.0-47.0); Hemoglobin 12.6 g/dL (12.2-16.2); Lymphocytes # 1.9 K/mm3 (0.7-4.5); Lymphocytes % 27.2 % (10-50); Mean Corpuscular HGB Conc 31.8 g/dL (31.8-35.4); Mean Corpuscular Hemoglobin 30.6 pg (27.0-31.2); Mean Corpuscular Volume 96.1 fl (81-99); Mean Platelet Volume 9.7 fl (7.4-10.4); Monocytes # 0.5 K/mm3 (0.1-1.0); Monocytes % 7.8 % (1.7-9.3); Neutrophils # 4.4 K/mm3 (1.8-7.8); Neutrophils % 62.9 % (37.0-80.0); Platelet Count 221 K/mm3 (142-424); Red Blood Count 4.12 M/mm3 (4.20-5.40); Red Cell Distribution Width 13.8 % (11.5-17.5)
[2023-01-27 06:49] LABS: Chloride 107 mmol/L (98-107); Potassium 3.4 mmoL/L (3.5-5.1); Sodium 139 mmol/L (136-145)
[2023-01-27 06:51] LABS: Alanine Aminotransferase 28 U/L (12-78); Aspartate Amino Transferase 28 U/L (14-36); Bilirubin,Total 0.5 mg/dl (0.2-1.3); Blood Urea Nitrogen 17 mg/dl (7-17); Creatinine Clearance Estimated 85 mL/min (50-200); Estimated Glomerular Filt Rate 61 ml/min (>60); GFR (African American) 74 ML/MIN (>60)
[2023-01-27 06:52] LABS: Albumin Level 2.9 g/dl (3.5-5.0); Albumin/Globulin Ratio 0.9 (1.1-1.8); Alkaline Phosphatase 110 U/L (38-126); Anion Gap 10.4 mEq/L (5-15); Calcium 8.6 mg/dl (8.4-10.2); Carbon Dioxide 25 mmol/L (22.0-30.0); Globulin 3.2 g/dL (1.3-3.2); Glucose 95 mg/dl (74-100); Total Protein,Serum 6.1 g/dl (6.3-8.2)
[2023-01-27 08:00] VITALS: BP 139/62; PULSE 70; RESP 20; TEMP 36.6; O2SAT 96
--- NOTE | 2023-01-27 08:03 | NM_ITS ---
APPROVED REPORT Exam: Nuclear Stress Test Indication: soa Patient Location: Inpatient Stress Tech: Melonie Marks [place] Tech:Ebony DelaneyIAIN RT(R)(N) Ht: 5 ft 10 in Wt: 228 lbs Bra Size: 44dd HR: 70 bpm BP: 162/85 mmHg BSA: 2.21 m2 Rhythm: Atrial Fibrillation TID: 1.43 BMI: 32.7 History: soa Procedure: Patient received 0.4 mg of intravenous Lexiscan, resting heart rate 70 bpm, resting blood pressure 162/85 mmHg, with Lexiscan maximum heart rate achieved was 70 bpm which is 85 % of the maximum predicted heart rate and blood pressure was 169/76 mmHg. With Lexiscan, patient denied any complaint of chest pain. The patient was not able to lay on her belly for prone images. Cardiac Stress and Resting SPECT Images: Cardiac Stress and Resting SPECT images were obtained using technetium 99m Myoview 31.7 mCi stress and 9.77 mCi at rest. The patient could not lie on her abdomen. Therefore, prone stress imaging could not be performed. This may affect the diagnostic interpretation of the study findings. Resting and stress imaging in supine position demonstrate no evidence of fixed or reversible perfusion defects. There is increased transient ischemic dilatation ratio (TID 1.43), suggestive of possible balanced ischemia or multivessel disease. Gated imaging demonstrates normal global and regional LV systolic function. LVEF is calculated at 68%. Conclusion: The patient could not lie on her abdomen. Therefore, prone stress imaging could not be performed. This may affect the diagnostic interpretation of the study findings. No evidence of fixed or reversible perfusion defects. Increased transient ischemic dilatation ratio (TID 1.43), suggestive of possible balanced ischemia or multivessel disease. Gated imaging demonstrates normal global and regional LV systolic function. LVEF is calculated at 68%. Electronically signed by : Lisa Jacobs, 01/27/2023 15:33:53
--- NOTE | 2023-01-27 08:31 | EXP.CARD.PN ---
Subjective Subjective Date: 01/27/23 Time: 08:00 Principal diagnosis: C. difficile, biliary colic, heart failure preserved ejection fraction, Interval history: Patient reports feeling better. Denies chest pain. Reports shortness of air is back to baseline. Morning labs reviewed. Exam Data for Last 24 hours Vital signs and Labs for Last 24 Hours: Temp Pulse Resp BP Pulse Ox O2 Del Method O2 Flow Rate 97.8 F 70 22 125/53 L 97 Room Air 93 01/27/23 04:00 01/27/23 04:00 01/27/23 04:00 01/27/23 04:00 01/27/23 04:00 01/27/23 06:36 01/26/23 00:39 FiO2 28 01/25/23 18:53 Laboratory Results - last 24 hr 01/26/23 07:25: WBC 8.1 D, RBC 4.15 L, Hgb 12.8, Hct 40.5, MCV 97.6, MCH 30.9, MCHC 31.7 L, RDW 14.0, Plt Count 231, MPV 10.8 H, Neut % (Auto) 68.6, Lymph % (Auto) 22.9, Worth % (Auto) 7.0, Eos % (Auto) 1.1, Baso % (Auto) 0.4, Neut # (Auto) 5.5, Lymph # (Auto) 1.9, Worth # (Auto) 0.6, Eos # (Auto) 0.1, Baso # (Auto) 0.0, Sodium 141, Potassium 3.5, Chloride 105, Carbon Dioxide 23, Anion Gap 16.5 H, BUN 16, Creatinine 0.90, Estimated Creat Clear 85, Estimated GFR 61, Est GFR ( Amer) 74, Glucose 88, Calcium 9.0, Magnesium 1.9, Total Bilirubin 0.9, AST 33, ALT 32, Alkaline Phosphatase 126, NT-Pro-B Natriuret Pep 4370 H, Total Protein 6.8, Albumin 3.4 L, Globulin 3.4 H, Albumin/Globulin Ratio 1.0 L 01/27/23 05:58: WBC 7.0, RBC 4.12 L, Hgb 12.6, Hct 39.6, MCV 96.1, MCH 30.6, MCHC 31.8, RDW 13.8, Plt Count 221, MPV 9.7, Neut % (Auto) 62.9, Lymph % (Auto) 27.2, Worth % (Auto) 7.8, Eos % (Auto) 1.6, Baso % (Auto) 0.5, Neut # (Auto) 4.4, Lymph # (Auto) 1.9, Worth # (Auto) 0.5, Eos # (Auto) 0.1, Baso # (Auto) 0.0, Sodium 139, Potassium 3.4 L, Chloride 107, Carbon Dioxide 25, Anion Gap 10.4, BUN 17, Creatinine 0.90, Estimated Creat Clear 85, Estimated GFR 61, Est GFR ( Amer) 74, Glucose 95, Calcium 8.6, Total Bilirubin 0.5, AST 28, ALT 28, Alkaline Phosphatase 110, Total Protein 6.1 L, Albumin 2.9 L D, Globulin 3.2, Albumin/Globulin Ratio 0.9 L I & O for Last 24 hours: Intake & Output 01/24/23 01/25/23 01/26/23 01/27/23 23:59 23:59 23:59 23:59 Intake Total 400 / 510 1255 / 1255 1090 / 1100 Output Total 1000 / 1000 2350 / 2350 200 / 200 400 / 400 Balance -600 / -490 -1095 / -1095 890 / 900 -380 / -380 Weight 236 lb 9 oz 231 lb 6 oz 239 lb 6.4 oz 240 lb 3.2 oz Constitutional Constitutional: no acute distress *Routine Respiratory Exam Respiratory: Present CTA bilaterally and symmetric chest movement *Routine Cardiovascular Exam Cardiovascular: Present RRR, Normal S1 and Normal S2 *Routine Abdominal Exam Abdominal: Present soft and normoactive bowel sounds; Absent tenderness *Routine Extremities Exam Extremities: Present edema, full ROM and normal capillary refill *Routine Skin Exam Skin: Present intact, dry and warm Detailed Neck Exam: Thyroids Thyroid: Absent bruit Progress Note: A&P Assessment and plan (1) Biliary colic: Status: Acute (2) Pneumonia: Status: Acute (3) COPD (chronic obstructive pulmonary disease): Status: Acute (4) Atrial fibrillation: Status: Acute (5) Heart failure with preserved ejection fraction: Status: Acute Assessment and Plan Assessment and Plan for All Diagnoses:: HFpEF NYHA II Moderate RV dilation Biatrial dilation moderate TR and MR -Echo 01/23/2023: Normal biventricular systolic function, moderate RV dilation, biatrial dilation, moderate MR, moderate TR, elevated RVSP at 41mmHg+ RA pressure -Patient was diuresed with Lasix 40 mg IV twice daily and is currently receiving Lasix 40 mg p.o. daily. Continue Lasix 40 mg daily -Continue metoprolol 50 mg twice daily -We will add Jardiance 10 mg p.o. daily Elevated troponin -Troponin 0.04-0.06 in the setting of acute illness -EKG negative for acute ischemic changes -Per primary service patient will receive inpatient stress test prior to discharge Atrial fibrillation status post pacemaker Chadsv
[2023-01-27 09:15] VITALS: BMI 34.0
--- NOTE | 2023-01-27 15:32 | EXP.PN ---
Subjective *Date: 01/27/23 *Time: 12:00 Interval history: No acute events overnight. Continues to have shortness of breath with minimal exertion She continues to have diarrhea, 8 small loose bowel movements since last night. She continues to have postprandial abdominal pain and distension Exam Data for Last 24 hours Vital signs and Labs for Last 24 Hours: Temp Pulse Resp BP Pulse Ox O2 Del Method O2 Flow Rate 98 F 70 20 139/62 96 Room Air 93 01/27/23 08:00 01/27/23 08:00 01/27/23 08:00 01/27/23 08:00 01/27/23 08:00 01/27/23 11:00 01/26/23 00:39 FiO2 28 01/25/23 18:53 Laboratory Results - last 24 hr 01/27/23 05:58: WBC 7.0, RBC 4.12 L, Hgb 12.6, Hct 39.6, MCV 96.1, MCH 30.6, MCHC 31.8, RDW 13.8, Plt Count 221, MPV 9.7, Neut % (Auto) 62.9, Lymph % (Auto) 27.2, Blaine % (Auto) 7.8, Eos % (Auto) 1.6, Baso % (Auto) 0.5, Neut # (Auto) 4.4, Lymph # (Auto) 1.9, Blaine # (Auto) 0.5, Eos # (Auto) 0.1, Baso # (Auto) 0.0, Sodium 139, Potassium 3.4 L, Chloride 107, Carbon Dioxide 25, Anion Gap 10.4, BUN 17, Creatinine 0.90, Estimated Creat Clear 85, Estimated GFR 61, Est GFR ( Amer) 74, Glucose 95, Calcium 8.6, Total Bilirubin 0.5, AST 28, ALT 28, Alkaline Phosphatase 110, Total Protein 6.1 L, Albumin 2.9 L D, Globulin 3.2, Albumin/Globulin Ratio 0.9 L Temp Pulse Resp BP Pulse Ox O2 Del Method 97.6 F 70 17 136/77 95 Room Air 01/22/23 15:07 01/22/23 15:07 01/22/23 15:07 01/22/23 15:07 01/22/23 15:07 01/22/23 15:07 Laboratory Results - last 24 hr 01/21/23 17:05: Troponin I < 0.01 01/22/23 06:10: WBC 7.4, RBC 3.87 L, Hgb 12.1 L D, Hct 37.5, MCV 96.9, MCH 31.2, MCHC 32.2, RDW 14.1, Plt Count 185, MPV 9.5, Neut % (Auto) 65.3, Lymph % (Auto) 24.8, Blaine % (Auto) 9.0, Eos % (Auto) 0.6, Baso % (Auto) 0.3, Neut # (Auto) 4.8, Lymph # (Auto) 1.8, Blaine # (Auto) 0.7, Eos # (Auto) 0.1, Baso # (Auto) 0.0, Sodium 142, Potassium 3.8, Chloride 110 H, Carbon Dioxide 25, Anion Gap 10.8, BUN 15, Creatinine 0.90, Estimated Creat Clear 81, Estimated GFR 61, Est GFR ( Amer) 74, Glucose 106 H, Calcium 8.6, Magnesium 1.8, Total Bilirubin 0.5, AST 26 D, ALT 24, Alkaline Phosphatase 93, Total Protein 5.8 L, Albumin 2.9 L D, Globulin 2.9, Albumin/Globulin Ratio 1.0 L, TSH 2.36 I & O for Last 24 hours: Intake & Output 01/24/23 01/25/23 01/26/23 01/27/23 23:59 23:59 23:59 23:59 Intake Total 400 / 510 1255 / 1255 1090 / 1100 Output Total 1000 / 1000 2350 / 2350 200 / 200 400 / 400 Balance -600 / -490 -1095 / -1095 890 / 900 -380 / -380 Weight 107.303 kg 104.95 kg 108.59 kg 108 kg Intake & Output 01/19/23 01/20/23 01/21/23 01/22/23 23:59 23:59 23:59 23:59 Intake Total 270 / 270 1600 / 1600 Output Total 0 / 0 0 / 0 Balance 270 / 270 1600 / 1600 Weight 103.476 kg 103.476 kg Microbiology Reports for the Last 24 Hours: Microbiology 01/21/23 11:57 Urine,Clean Catch Urine Culture - Preliminary NO GROWTH AFTER 24 HOURS Constitutional Constitutional: no acute distress *Routine HEENT Exam Head: Present normocephalic Eye: Present EOMI and PERRL ENT: Present mucous membranes moist *Routine Neck Exam Neck: Present supple; Absent lymphadenopathy *Routine Respiratory Exam Respiratory: Present CTA bilaterally *Routine Cardiovascular Exam Cardiovascular: Present RRR *Routine Abdominal Exam Abdominal: Present soft and normoactive bowel sounds; Absent tenderness *Routine Extremities Exam Extremities: Absent cyanosis, clubbing or edema *Routine Skin Exam Skin: Present warm; Absent rash *Routine Neurological Exam Neurological: Present alert and oriented X3 Assessment and Plan *Assessment and plan (1) Biliary colic: Status: Acute Category: Medical Code(s): K80.50 - Calculus of bile duct without cholangitis or cholecystitis without obstruction (2) Pneumonia: Status: Acute Qualifiers: Laterality: unspecified laterality
[2023-01-27 16:00] VITALS: BP 128/79; PULSE 70; RESP 22; TEMP 36.9; O2SAT 97
[2023-01-27 20:00] VITALS: BP 145/66; PULSE 70; RESP 18; TEMP 36.6; O2SAT 94
[2023-01-27 23:57] VITALS: BP 149/67; PULSE 70; RESP 19; TEMP 36.7; O2SAT 96
[2023-01-28] VITALS (21 sets, daily range): BP systolic 112–165; BP diastolic 52–95; PULSE 61–77; RESP 16–22; TEMP 36.4–36.8; O2SAT 95–100; BMI 33.3
--- NOTE | 2023-01-28 05:31 | PC.NURSE ---
pt rested well t/o night. A&OX4. RA. denies cp and soa. NPO since midnight. no acute changes. bed locked and in lowest position, cb within reach. poc ongoing.
[2023-01-28 06:47] LABS: Basophils % 0.3 % (0.1-2.0); Eosinophils # 0.1 K/mm3 (0.0-0.4); Eosinophils % 2.2 % (0.1-12.0); Hematocrit 36.4 % (37.0-47.0); Hemoglobin 11.9 g/dL (12.2-16.2); Lymphocytes # 1.4 K/mm3 (0.7-4.5); Lymphocytes % 24.7 % (10-50); Mean Corpuscular HGB Conc 32.7 g/dL (31.8-35.4); Mean Corpuscular Hemoglobin 31.5 pg (27.0-31.2); Mean Corpuscular Volume 96.3 fl (81-99); Monocytes # 0.4 K/mm3 (0.1-1.0); Neutrophils # 3.7 K/mm3 (1.8-7.8); Neutrophils % 65.8 % (37.0-80.0); Platelet Count 201 K/mm3 (142-424); Red Blood Count 3.78 M/mm3 (4.20-5.40); Red Cell Distribution Width 13.9 % (11.5-17.5); White Blood Count 5.7 K/mm3 (4.8-10.8)
[2023-01-28 06:50] LABS: Chloride 109 mmol/L (98-107); Potassium 3.5 mmoL/L (3.5-5.1); Sodium 142 mmol/L (136-145)
[2023-01-28 06:52] LABS: Blood Urea Nitrogen 16 mg/dl (7-17); Creatinine Clearance Estimated 82 mL/min (50-200); Estimated Glomerular Filt Rate 61 ml/min (>60); GFR (African American) 74 ML/MIN (>60)
[2023-01-28 06:53] LABS: Alanine Aminotransferase 26 U/L (12-78); Albumin Level 2.9 g/dl (3.5-5.0); Albumin/Globulin Ratio 0.9 (1.1-1.8); Alkaline Phosphatase 103 U/L (38-126); Anion Gap 11.5 mEq/L (5-15); Aspartate Amino Transferase 24 U/L (14-36); Bilirubin,Total 0.4 mg/dl (0.2-1.3); Calcium 8.6 mg/dl (8.4-10.2); Carbon Dioxide 25 mmol/L (22.0-30.0); Globulin 3.1 g/dL (1.3-3.2); Glucose 105 mg/dl (74-100)
--- NOTE | 2023-01-28 07:17 | IR_ITS ---
APPROVED REPORT Patient Location: Inpatient Animal Cop: IAIN Duenas RT (R) PROCEDURES Selective coronary angiogram Drug-eluting stent deployment to the proximal and mid LAD in a contiguous manner Drug-eluting stent deployment to the circumflex artery INDICATION Coronary artery disease, High risk abnormal Myoview, Multivessel coronary disease, Informed consent was obtained prior to the procedure. COMPLICATIONS NONE Estimated Blood Loss: LESS THAN 10 ML TECHNIQUE One percent lidocaine used to anesthetize the right anterior aspect of the wrist. The right radial artery was accessed via the Seldinger technique. A 6 Bhutanese sheath was placed in the right radial artery. 2.5 mg of Verapamil, 800 mcg of nitroglycerin, 1mg Lidocaine and 5000 U Heparin were given through the arterial sheath. The papa catheter was also used to perform selective coronary angiography. At the end the diagnostic angiogram therapeutic heparin was administered giving a therapeutic ACT and the guide catheter was placed in the left main artery followed by Choice PT extra-support wire being placed on the LAD. A 2.5 x 15 mm Morgan frontier stent was deployed in the mid LAD at 20 piyush reducing the stenosis. An additional 3 mm x 22 mm Morgan frontier stent was placed proximal to this yet still overlapping and deployed at 16 piyush reducing the stenosis to 0%. ANITA-3 flow was present before and after the procedure. Following this the wire was placed in the circumflex artery where a 2.5 x 15 mm Morgan frontier stent was deployed at 20 piyush reducing the severe stenosis to 0%. ANITA-3 flow was present before and after the procedure then the procedure the apparatus was removed the sheath was removed good hemostasis was achieved using TR banding patient was transferred to the postop holding in stable condition ANGIOGRAPHIC RESULTS The left main artery Normal The left anterior descending artery Has proximal 50% stenosis with a mid vessel 70 to 80% stenosis The circumflex artery Nondominant gives rise to a large obtuse marginal artery which has a proximal hazy 60 to 70% stenosis The right coronary artery Is a dominant vessel and has proximal 30% and a 30 to 40% stenosis with a distal 30% stenosis The SOLER ventriculogram reveals Not performed The left ventricular end-diastolic pressure Not measured IMPRESSION Two-vessel coronary disease as described above Successful stenting of the proximal and mid LAD severe disease reduced to 0% with 2 contiguous drug-eluting stents Successful stent to the proximal circumflex artery severe disease reduced to 0% with 1 drug-eluting stent PLAN 1. Plavix 75 daily plus aspirin 81 mg daily 2. LDL less than 55 to be achieved with high intensity statin 3. Avoidance of tobacco products 4. Risk factor modification 5. Cardiac rehabilitation Electronically signed by : Fernando Florentino MD 01/28/2023 15:20:09
--- NOTE | 2023-01-28 08:00 | EXP.PHA.PN ---
Subjective *Date: 01/28/23 *Time: 08:00 Medical Exam Vital signs and Labs for Last 24 Hours: Vital Signs Temp Pulse Pulse Resp BP Pulse Ox O2 Del Method 01/28/23 06:18 Room Air 01/28/23 04:51 Room Air 01/28/23 04:00 97.5 F L 70 19 136/79 100 BiPAP 01/28/23 04:00 70 01/28/23 03:00 Room Air 01/28/23 00:00 70 01/28/23 00:00 96 Room Air 01/27/23 23:57 98.0 F 70 19 149/67 H 96 Room Air 01/27/23 20:00 70 01/28/23 00:49 Room Air 01/27/23 22:38 Room Air 01/27/23 21:00 Room Air 01/27/23 20:00 Room Air 01/27/23 20:00 97.8 F 70 18 145/66 H 94 L Room Air 01/27/23 16:00 70 01/27/23 17:00 Room Air 01/27/23 16:00 98.4 F 70 22 128/79 97 Room Air 01/27/23 15:00 Room Air 01/27/23 11:00 Room Air 01/27/23 09:00 Room Air Intake and Output 01/27/23 01/28/23 01/28/23 23:59 07:59 15:59 Intake Total 720 / 740 Output Total 200 / 1200 350 / 350 Balance 520 / -460 -350 / -350 Intake: Intake, Oral Amount 720 / 730 Output: Output, Urine Amount 200 / 1200 350 / 350 Other: Number of Voids 0 Number of Unmeasured Voids 1 Weight 105.687 kg Patient Weight 01/28/23 23:59 Weight 105.687 kg Laboratory Results - last 24 hr 01/28/23 06:24: WBC 5.7, RBC 3.78 L, Hgb 11.9 L, Hct 36.4 L, MCV 96.3, MCH 31.5 H, MCHC 32.7, RDW 13.9, Plt Count 201, MPV 10.0, Neut % (Auto) 65.8, Lymph % (Auto) 24.7, Mchenry % (Auto) 7.0, Eos % (Auto) 2.2, Baso % (Auto) 0.3, Neut # (Auto) 3.7, Lymph # (Auto) 1.4, Mchenry # (Auto) 0.4, Eos # (Auto) 0.1, Baso # (Auto) 0.0, Sodium 142, Potassium 3.5, Chloride 109 H, Carbon Dioxide 25, Anion Gap 11.5, BUN 16, Creatinine 0.90, Estimated Creat Clear 82, Estimated GFR 61, Est GFR ( Amer) 74, Glucose 105 H, Calcium 8.6, Total Bilirubin 0.4, AST 24, ALT 26, Alkaline Phosphatase 103, Total Protein 6.0 L, Albumin 2.9 L, Globulin 3.1, Albumin/Globulin Ratio 0.9 L I & O for Labs for Last 24 Hours: Intake & Output 01/25/23 01/26/23 01/27/23 01/28/23 23:59 23:59 23:59 23:59 Intake Total 1255 / 1255 1090 / 1100 740 / 740 Output Total 2350 / 2350 200 / 200 1200 / 1200 350 / 350 Balance -1095 / -1095 890 / 900 -460 / -460 -350 / -350 Weight 104.95 kg 108.59 kg 108 kg 105.687 kg The patient's infection will respond to the chosen ABx?: Yes (BLOOD AND URINE CULTURES NO GROWTH, AFEBRILE, WHITE BLOOD CELL COUNT NORMAL) Is the patient receiving the right drug, dose, and route?: Yes Could a more targeted ABx be ordered?: No
--- NOTE | 2023-01-28 09:31 | EXP.CARD.PN ---
Subjective Subjective Date: 01/28/23 Time: 08:30 Principal diagnosis: C. difficile, biliary colic, heart failure preserved ejection fraction, Interval history: Patient sleeping, awaiting [facility] today. Exam Data for Last 24 hours Vital signs and Labs for Last 24 Hours: Temp Pulse Resp BP Pulse Ox O2 Del Method O2 Flow Rate 97.5 F L 70 19 136/79 100 Room Air 93 01/28/23 04:00 01/28/23 04:00 01/28/23 04:00 01/28/23 04:00 01/28/23 04:00 01/28/23 06:18 01/26/23 00:39 FiO2 28 01/25/23 18:53 Laboratory Results - last 24 hr 01/28/23 06:24: WBC 5.7, RBC 3.78 L, Hgb 11.9 L, Hct 36.4 L, MCV 96.3, MCH 31.5 H, MCHC 32.7, RDW 13.9, Plt Count 201, MPV 10.0, Neut % (Auto) 65.8, Lymph % (Auto) 24.7, [place] % (Auto) 7.0, Eos % (Auto) 2.2, Baso % (Auto) 0.3, Neut # (Auto) 3.7, Lymph # (Auto) 1.4, [place] # (Auto) 0.4, Eos # (Auto) 0.1, Baso # (Auto) 0.0, Sodium 142, Potassium 3.5, Chloride 109 H, Carbon Dioxide 25, Anion Gap 11.5, BUN 16, Creatinine 0.90, Estimated Creat Clear 82, Estimated GFR 61, Est GFR ( Amer) 74, Glucose 105 H, Calcium 8.6, Total Bilirubin 0.4, AST 24, ALT 26, Alkaline Phosphatase 103, Total Protein 6.0 L, Albumin 2.9 L, Globulin 3.1, Albumin/Globulin Ratio 0.9 L I & O for Last 24 hours: Intake & Output 01/25/23 01/26/23 01/27/23 01/28/23 23:59 23:59 23:59 23:59 Intake Total 1255 / 1255 1090 / 1100 740 / 740 Output Total 2350 / 2350 200 / 200 1200 / 1200 350 / 350 Balance -1095 / -1095 890 / 900 -460 / -460 -350 / -350 Weight 231 lb 6 oz 239 lb 6.4 oz 238 lb 1.588 oz 233 lb Microbiology Reports for the Last 24 Hours: Microbiology 01/21/23 11:57 Urine,Clean Catch Urine Culture - Preliminary NO GROWTH AFTER 24 HOURS Constitutional Constitutional: no acute distress *Routine HEENT Exam Head: Present normocephalic Eye: Present EOMI and PERRL ENT: Present mucous membranes moist *Routine Neck Exam Neck: Present supple; Absent lymphadenopathy *Routine Respiratory Exam Respiratory: Present CTA bilaterally *Routine Cardiovascular Exam Cardiovascular: Present RRR *Routine Abdominal Exam Abdominal: Present soft and normoactive bowel sounds; Absent tenderness *Routine Extremities Exam Extremities: Absent cyanosis, clubbing or edema *Routine Skin Exam Skin: Present warm; Absent rash *Routine Neurological Exam Neurological: Present alert and oriented X3 Progress Note: A&P Assessment and plan (1) Biliary colic: Status: Acute (2) Pneumonia: Status: Acute (3) CHF exacerbation: Status: Acute (4) COPD (chronic obstructive pulmonary disease): Status: Acute Assessment and Plan Assessment and Plan for All Diagnoses:: HFpEF NYHA II Moderate RV dilation Biatrial dilation moderate TR and MR -Echo 01/23/2023: Normal biventricular systolic function, moderate RV dilation, biatrial dilation, moderate MR, moderate TR, elevated RVSP at 41mmHg+ RA pressure -Patient was diuresed with Lasix 40 mg IV twice daily and is currently receiving Lasix 40 mg p.o. daily. Continue Lasix 40 mg daily -Continue metoprolol 50 mg twice daily -We will add Jardiance 10 mg p.o. daily Acute myocardial injury Elevated troponin -Troponin 0.04-0.06 in the setting of acute illness -EKG negative for acute ischemic changes -Stress test 01/27/2023: No evidence of fixed or reversible perfusion defects. Increased transient ischemic dilation ratio (TID 1.43), suggestive of balanced ischemia versus multivessel disease -Plan for left heart catheterization 01/28/2023 Atrial fibrillation status post pacemaker Chadsvasc score 6 -Rate controlled currently, continue metoprolol 50 mg p.o. twice daily -Continue Lovenox -Will need oral anticoagulation prior to discharge home Abdominal pain -Abdominal pelvis CTA-negative for SMA or celiac stenosis or obstruction -Positive for C. difficile -Positive for cholelithiasis-GI following CV summary 01/27/2023: We will proceed with lef
[2023-01-28 15:56] LABS: CATHL Activated Clotting Time 278 SEC (74-125)
--- NOTE | 2023-01-28 20:00 | PC.NURSE ---
right radial band removed. gauze and tegaderm c/d/i. pt denies cp, soa, or any other complaints at this time.
--- NOTE | 2023-01-28 20:10 | EXP.ACUTE.PN ---
Subjective *Date: 01/28/23 *Time: 20:10 Interval history: Patient denies significant abdominal pain today. Still having multiple bowel movements daily. No blood in her stool. Denies nausea or vomiting. Stable on room air. Taken for heart cath today, received 3 stents. We will continue to monitor overnight. Reviewed labs, electrolytes stable. Medical Exam Vital signs and Labs for Last 24 Hours: Vital Signs Temp Pulse Pulse Resp BP Pulse Ox O2 Del Method 01/28/23 18:45 71 17 112/52 L 97 Room Air 01/28/23 18:15 70 18 127/58 L 97 Room Air 01/28/23 17:45 71 18 139/73 97 Room Air 01/28/23 17:15 70 18 142/69 H 98 Room Air 01/28/23 16:45 70 16 146/72 H 98 Room Air 01/28/23 16:30 70 16 133/64 97 Room Air 01/28/23 16:15 70 16 129/72 97 01/28/23 17:00 Room Air 01/28/23 16:01 70 18 162/87 H 96 01/28/23 15:45 70 18 163/91 H 95 Room Air 01/28/23 15:40 70 18 164/91 H 97 01/28/23 15:35 70 18 158/69 H 95 01/28/23 15:40 70 01/28/23 15:30 70 18 165/95 H 95 01/28/23 12:00 70 01/28/23 08:00 70 01/28/23 12:00 77 01/28/23 08:00 70 01/28/23 13:00 Room Air 01/28/23 12:00 98.2 F 70 22 145/73 H 95 Room Air 01/28/23 08:00 Room Air 01/28/23 11:00 Room Air 01/28/23 09:00 Room Air 01/28/23 08:00 97.5 F L 71 20 146/69 H 98 Room Air 01/28/23 06:18 Room Air 01/28/23 04:51 Room Air 01/28/23 04:00 97.5 F L 70 19 136/79 100 BiPAP 01/28/23 04:00 70 01/28/23 03:00 Room Air 01/28/23 00:00 70 01/28/23 00:00 96 Room Air 01/27/23 23:57 98.0 F 70 19 149/67 H 96 Room Air 01/28/23 00:49 Room Air 01/27/23 22:38 Room Air 01/27/23 21:00 Room Air Intake and Output 01/28/23 01/28/23 01/28/23 07:59 15:59 23:59 Intake Total 270 / 270 Output Total 350 / 1550 0 / 1550 1200 / 1550 Balance -350 / -1280 0 / -1280 -930 / -1280 Intake: Intake, Oral Amount 270 / 270 Output: Output, Urine Amount 350 / 1550 0 / 1550 1200 / 1550 Other: Number of Voids 0 Number of Bowel Movements 1 Weight 105.687 kg Patient Weight 01/28/23 23:59 Weight 105.687 kg Laboratory Results - last 24 hr 01/28/23 06:24: WBC 5.7, RBC 3.78 L, Hgb 11.9 L, Hct 36.4 L, MCV 96.3, MCH 31.5 H, MCHC 32.7, RDW 13.9, Plt Count 201, MPV 10.0, Neut % (Auto) 65.8, Lymph % (Auto) 24.7, Tama % (Auto) 7.0, Eos % (Auto) 2.2, Baso % (Auto) 0.3, Neut # (Auto) 3.7, Lymph # (Auto) 1.4, Tama # (Auto) 0.4, Eos # (Auto) 0.1, Baso # (Auto) 0.0, Sodium 142, Potassium 3.5, Chloride 109 H, Carbon Dioxide 25, Anion Gap 11.5, BUN 16, Creatinine 0.90, Estimated Creat Clear 82, Estimated GFR 61, Est GFR ( Amer) 74, Glucose 105 H, Calcium 8.6, Total Bilirubin 0.4, AST 24, ALT 26, Alkaline Phosphatase 103, Total Protein 6.0 L, Albumin 2.9 L, Globulin 3.1, Albumin/Globulin Ratio 0.9 L 01/28/23 14:57: Activated Clotting Time 278 H* I & O for Labs for Last 24 Hours: Intake & Output 01/25/23 01/26/23 01/27/23 01/28/23 23:59 23:59 23:59 23:59 Intake Total 1255 / 1255 1090 / 1100 740 / 740 270 / 270 Output Total 2350 / 2350 200 / 200 1200 / 1200 1550 / 1550 Balance -1095 / -1095 890 / 900 -460 / -460 -1280 / -1280 Weight 104.95 kg 108.59 kg 108 kg 105.687 kg Microbiology Reports for the Last 24 Hours: Microbiology 01/23/23 14:18 Blood Blood Culture - Final NO GROWTH AFTER 5 DAYS 01/23/23 14:18 Blood Blood Culture - Final NO GROWTH AFTER 5 DAYS Constitutional: Present no acute distress and obese Head: Present atraumatic and normocephalic Respiratory: Present normal respiratory effort; Absent rhonchi, wheezes or crackles Cardiac: Present Reg Rate and Rhythm GI: Present soft, tenderness (non focal) and normal bowel sounds; Absent distention Extremities: Present normal in
[2023-01-29] VITALS: BP 146/74; PULSE 70; RESP 20; TEMP 36.9; O2SAT 96
[2023-01-29 04:00] VITALS: BP 120/60; PULSE 70; RESP 18; TEMP 36.6; O2SAT 93; BMI 33.8
[2023-01-29 06:46] LABS: Chloride 108 mmol/L (98-107); Potassium 3.4 mmoL/L (3.5-5.1); Sodium 142 mmol/L (136-145)
[2023-01-29 06:49] LABS: Alanine Aminotransferase 23 U/L (12-78); Albumin Level 2.9 g/dl (3.5-5.0); Alkaline Phosphatase 104 U/L (38-126); Anion Gap 10.4 mEq/L (5-15); Aspartate Amino Transferase 28 U/L (14-36); Bilirubin,Total 0.4 mg/dl (0.2-1.3); Blood Urea Nitrogen 13 mg/dl (7-17); Calcium 8.4 mg/dl (8.4-10.2); Carbon Dioxide 27 mmol/L (22.0-30.0); Creatinine Clearance Estimated 76 mL/min (50-200); Estimated Glomerular Filt Rate 49 ml/min (>60); GFR (African American) 59 ML/MIN (>60); Glucose 91 mg/dl (74-100); Total Protein,Serum 5.9 g/dl (6.3-8.2)
[2023-01-29 06:50] LABS: Magnesium 2.1 mg/dl (1.6-2.3)
[2023-01-29 07:02] LABS: Basophils % 0.3 % (0.1-2.0); Eosinophils # 0.1 K/mm3 (0.0-0.4); Eosinophils % 1.6 % (0.1-12.0); Hematocrit 37.7 % (37.0-47.0); Hemoglobin 12.1 g/dL (12.2-16.2); Lymphocytes # 1.8 K/mm3 (0.7-4.5); Lymphocytes % 27.2 % (10-50); Mean Corpuscular Hemoglobin 31.3 pg (27.0-31.2); Mean Corpuscular Volume 97.7 fl (81-99); Mean Platelet Volume 9.6 fl (7.4-10.4); Monocytes # 0.5 K/mm3 (0.1-1.0); Monocytes % 7.7 % (1.7-9.3); Neutrophils # 4.1 K/mm3 (1.8-7.8); Neutrophils % 63.2 % (37.0-80.0); Platelet Count 215 K/mm3 (142-424); Red Blood Count 3.86 M/mm3 (4.20-5.40); White Blood Count 6.5 K/mm3 (4.8-10.8)
[2023-01-29 07:32] VITALS: BP 132/70; PULSE 69; RESP 18; TEMP 36.7; O2SAT 98
--- NOTE | 2023-01-29 07:42 | EXP.DC.SUM ---
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 She has a history of lytic lesions on radiographic imaging noted when she was evaluated in April 2022 for vertigo and dizziness. She has seen oncology. She had presented to the emergency department on 01/21/2023 with concerns for dizziness. She had some vertigo-like symptoms with difficulty standing and walking and feeling off balance. This was preceded with some abdominal cramping and diarrhea about 2 weeks prior. She was admitted on 01/21/2023 for short stay and was discharged yesterday on 01/22/2023. CT scan on 01/21/2023 revealed cholelithiasis and mild splenomegaly. She did have a gallbladder ultrasound done yesterday prior to discharge which revealed 2.6 cm gallstone present in the gallbladder with gallbladder wall thickening measuring 5 mm which was nonspecific. She was scheduled as an outpatient to see Dr. Bonner next Friday on 01/29/2023 She presented back to the emergency department this afternoon on 01/23/2023 with concerns for shortness of breath. Upon arrival to the emergency department she showed some findings of hypoxia with decreased oxygen saturations. Denies any cough or fever. Chest x-ray reveals right base opacities worrisome for pneumonia. Patient has had some postprandial diffuse bloating and abdominal pain and avoided eating. Patient states that she wants her gallbladder out. Given her findings on CT scan of gallstones with mild leukocytosis surgery was contacted for consultation. She has a HIDA scan pending. Of note, patient has previously undergone laparotomy for what sounds like a hiatal hernia many years ago and has had subsequent laparoscopic incisional hernia repairs in [facility] in July 2021. Hospital Course Hospital Course Hospital Course: 72-year-old female who presented to the ER with abdominal pain and some dyspnea. Found to have multiple issues going on. Presentation concerning for biliary colic, diarrhea, CHF exacerbation. Cardiology and surgery assisted with care during admission. Imaging of abdomen showed gallstones. Heart cath performed during admission. Stable for discharge home with close follow-ups with both cardiology and surgery for further management and evaluation. Problems addressed as follows: #elevated troponin #CHF exacerbation, heart failure with preserved ejection fraction During admission, patient found to have elevated troponin, 0.04-0.06. Lexiscan had revealed transient ischemia. Suggestive of multivessel disease. Patient taken for left heart cath today before discharge with placement of 3 stents. Tolerated procedure well with no events. Was monitored overnight and remained stable. Discharged home on goal-directed therapy of aspirin and Plavix. Plan to continue Losartan, amlodipine, metoprolol, Xarelto, and Lasix 40 mg daily. Echo obtained showing elevated RVSP at 41mmHg. #c diff colitis -Diarrhea on presentation. Stool sample obtained showing C. difficile. Initiated on vancomycin. Complete 10 days total po vancomycin 125 mg 4 times a day. #Biliary colic -The patient has had post prandial abdominal discomfort and distention for a couple weeks to the extent that she has avoided eating. CT abd/pel revealed cholelithiasis. US of the gallbladder revealed 5mm thickening of the gall bladder wall and a 2.6cm gallstone. She will need to f/u with General Surgery in the outpatient setting. Patient stable for discharge home. Close follow-up scheduled. Exam Data for Last 24 hours Vital signs and Labs for Last 24 Hours: Temp Pulse Resp BP Pulse Ox O2 Del Method O2 Flow Rate 98.1 F 69 18 132/70 98 Room Air 96 01/29/23 07:32 01/29/23 07:32 01/29/23 07:32 01/29/23 07:32 01/29/23
[2023-01-29 08:00] VITALS: PULSE 70
[2023-01-29 11:29] VITALS: BP 136/73; PULSE 70; RESP 17; TEMP 36.5; O2SAT 94
[2023-01-29 12:00] VITALS: PULSE 70
--- NOTE | 2023-01-31 14:10 | CARE MANAGER ---
Attempted to contact patient related to hospital discharge x2. Left VM. SOLO Khan
--- NOTE | 2023-02-03 13:59 | CARE MANAGER ---
Left message for [facility] in surgery suite that patient needs follow up appointment with Dr. Lakhani. Attempted to contact patient again to discuss this as well. No answer.
== END 2023-01-29 13:57 | disposition home or self-care (01) | DRG 246 ==
LOC: ER 13:29 → 2ND 16:58
PROVIDERS: Internal Medicine; Internal Medicine Adolescent Medicine; Nurse Practitioner Critical Care Medicine; Admitting Provider Internal Medicine; Emergency Provider Emergency Medicine; PCP Nurse Practitioner Family; Visit Provider Internal Medicine
PROC: 027136Z Dilation of Coronary Artery, Two Arteries with Three Drug-eluting Intraluminal Devices, Percutaneous Approach (ICD-10-PCS; principal; 2023-01-28 10:15)
DX: I11.0 Hypertensive heart disease with heart failure (principal); I50.33 Acute on chronic diastolic (congestive) heart failure; J18.9 Pneumonia, unspecified organism; J44.1 Chronic obstructive pulmonary disease with (acute) exacerbation; A04.72 Enterocolitis due to Clostridium difficile, not specified as recurrent; K80.50 Calculus of bile duct without cholangitis or cholecystitis without obstruction; Z79.899 Other long term (current) drug therapy; Z79.01 Long term (current) use of anticoagulants; I25.118 Atherosclerotic heart disease of native coronary artery with other forms of angina pectoris; Z95.0 Presence of cardiac pacemaker; E03.9 Hypothyroidism, unspecified; Z86.73 Personal history of transient ischemic attack (TIA), and cerebral infarction without residual deficits; Z85.820 Personal history of malignant melanoma of skin; R77.8 Other specified abnormalities of plasma proteins; E87.6 Hypokalemia; I08.1 Rheumatic disorders of both mitral and tricuspid valves
CPT/HCPCS: 36415; 70450; 70496; 70498; 71045; 71046; 71275; 74174; 74177; 76705; 78452; 80053; 81001; 82803; 83605; 83690; 83735; 83880; 84436; 84443; 84484; 85025; 85347; 85610; 85730; 87040; 87086; 87507; 87636; 92928; 93005; 93017; 93306; 93454; 94640; 97163; 99152; 99285; 99291; A9502; C1725; C1769; C1876; C9600; G0378; J0131; J0456; J0696; J1644; J2785; Q9967

== ENCOUNTER → 2023-02-05 11:34 | Outpatient (CLI) | payer MEDICARE, OTHER, SELFPAY ==
[2023-02-05 13:46] LABS: Anion Gap 17.2 mEq/L (5-15); Blood Urea Nitrogen 23 mg/dl (7-17); Calcium 8.9 mg/dl (8.4-10.2); Carbon Dioxide 21 mmol/L (22.0-30.0); Chloride 109 mmol/L (98-107); Estimated Glomerular Filt Rate 49 ml/min (>60); GFR (African American) 59 ML/MIN (>60); Glucose 119 mg/dl (74-100); Potassium 4.2 mmoL/L (3.5-5.1); Sodium 143 mmol/L (136-145)
== END ==
PROVIDERS: PCP Nurse Practitioner Family; Visit Provider Nurse Practitioner
DX: E78.5 Hyperlipidemia, unspecified (principal); I10 Essential (primary) hypertension; I25.10 Atherosclerotic heart disease of native coronary artery without angina pectoris; I48.91 Unspecified atrial fibrillation; I50.30 Unspecified diastolic (congestive) heart failure
CPT/HCPCS: 36415; 80048

== ENCOUNTER 2023-02-11 09:57 | Outpatient (RCR) | payer MEDICARE, OTHER, SELFPAY | END 2023-04-23 11:00 | disposition home or self-care (01) | LOC: PT 09:57 | PROVIDERS: Visit Provider Internal Medicine | DX: I25.10 Atherosclerotic heart disease of native coronary artery without angina pectoris (principal); Z95.5 Presence of coronary angioplasty implant and graft | CPT/HCPCS: 93798 ==

== ENCOUNTER → 2023-05-07 14:07 | Outpatient (CLI) | payer MEDICARE, OTHER, SELFPAY ==
--- NOTE | 2023-05-07 14:11 | CT_ITS ---
FINAL REPORT TECHNIQUE: Thin section axial CT images of the temporal bones were obtained. Coronal reformatted images were also obtained.This study was performed with techniques to keep radiation doses as low as reasonably achievable (ALARA). Individualized dose reduction techniques using automated exposure control or adjustment of mA and/or kV according to the patient's size were employed. CLINICAL HISTORY: HISTORY OF FRACTURE OF ORBIT (left), recent facial trauma with pain/decreased vison OS COMPARISON: CT of the head 01/21/2023 FINDINGS: CT ORBITS: CT examination of the orbits was performed in this patient with a history of a prior left orbital fracture. There are orthopedic screws in the floor of the left orbit consistent with prior fracture repair. There is cortical thinning in the region of the healed fracture. There is a soft tissue mass in the inferior aspect of the left orbit, which appears to be superiorly displace the inferior rectus muscle. This abnormal density measures 2 x 0.8 cm in size, has smooth margins, was present on the prior CT and is stable since that time. The nature of this abnormal density is unclear, but favor to be related to the prior trauma. IMPRESSION: Orthopedic screws are present in the floor of the left orbit consistent with the prior fracture repair. There is a soft tissue mass in the inferior aspect of the left orbit, which appears to sit. Displaced the inferior rectus. This is stable since the prior CT, and the nature of this mass is unclear. It is favored to be related to prior trauma. Would suggest a pre and post contrast enhanced MRI of the orbits. Reviewed, Interpreted and Dictated by Jordan Cali MD Transcribed by Yue Martinez Authenticated and [facility]
== END ==
PROVIDERS: PCP Family Medicine; Visit Provider Ophthalmology
DX: Z87.81 Personal history of (healed) traumatic fracture (principal)
CPT/HCPCS: 70480

== ENCOUNTER → 2023-05-20 15:47 | Outpatient (CLI) | payer MEDICARE, OTHER, SELFPAY ==
[2023-05-20 16:57] LABS: Blood Urea Nitrogen 20 mg/dl (7-17); Estimated Glomerular Filt Rate 49 ml/min (>60); GFR (African American) 59 ML/MIN (>60)
== END ==
PROVIDERS: PCP Family Medicine; Visit Provider Surgery
DX: K80.50 Calculus of bile duct without cholangitis or cholecystitis without obstruction (principal)
CPT/HCPCS: 36415; 82565; 84520

== ENCOUNTER 2023-06-10 07:56 | Outpatient (CLI) | payer MEDICARE, OTHER, SELFPAY ==
--- NOTE | 2023-06-10 07:57 | CT_ITS ---
FINAL REPORT CLINICAL HISTORY: left upper quad pain FINDINGS: CT OF THE ABDOMEN AND PELVIS WITH CONTRAST Axial CT images of the abdomen and pelvis were obtained after the administration of oral and iv contrast. Coronal and sagittal reformatted images were also obtained and reviewed.This study was performed with techniques to keep radiation doses as low as reasonably achievable (ALARA). Individualized dose reduction techniques using automated exposure control or adjustment of mA and/or kV according to the patient's size were employed. Abdomen: The lung bases are clear. The heart is normal in size, and postoperative changes are identified. The liver has an unremarkable appearance, without evidence of mass or biliary ductal dilatation. A large gallstone is present in the gallbladder. The spleen is borderline in size measuring 13.4 cm in craniocaudal length. There is postoperative change immediately adjacent to the spleen. No adrenal mass is present. The pancreas has an unremarkable appearance. The kidneys are normal, without evidence of mass or hydronephrosis. The aorta is normal in caliber. There is no free fluid or adenopathy. No mass or abnormal fluid collection is seen. Pelvis: The appendix normal in appearance. The urinary bladder is unremarkable. No inflammatory process is seen. There is no evidence of mass or adenopathy. The uterus has been surgically removed. Postoperative changes are noted from a fusion at the L4-5 level. There is no evidence of bowel obstruction. IMPRESSION: Borderline splenomegaly. Stone present in the gallbladder. Postoperative changes of a posterior L4-5 fusion. Reviewed, Interpreted and Dictated by Hi Payan III, MD Transcribed by Yue Martinez Authenticated and [facility]
[2023-06-10] MEDS: BARIUM SULFATE(READI-CAT2);450ML BOTTLE 450 ML PO (08:46)
[2023-06-10] MEDS: SODIUM CHLORIDE 0.9% 10ML SYR (RAD ONLY) 10 ML IV (08:46)
[2023-06-10] MEDS: IOPAMIDOL-370 (76%);100ML BOTTLE 75 ML IV (08:46)
== END 2023-06-10 23:59 ==
LOC: RAD 07:57
PROVIDERS: PCP Family Medicine; Visit Provider Surgery
DX: R10.12 Left upper quadrant pain (principal)
CPT/HCPCS: 74177; Q9967

== ENCOUNTER 2023-07-03 05:38 | Emergency (ER) | payer MEDICARE, OTHER, SELFPAY ==
[2023-07-03 05:38] VITALS: BP 156/52; PULSE 70; RESP 20; TEMP 36.7; O2SAT 93; BMI 39.8
--- NOTE | 2023-07-03 05:47 | CT_ITS ---
PROCEDURE INFORMATION: Exam: CTA Neck With Contrast Exam date and time: 07/03/2023 6:03 AM Age: 72 years old Clinical indication: Stroke-like symptoms; Altered mental status/memory loss; Additional info: Possible stroke TECHNIQUE: Imaging protocol: Computed tomographic angiography of the neck with contrast. Exam focused on the cervical segments of the vasculature. 3D rendering (Not supervised by radiologist): MIP and/or 3D reconstructed images were created by the technologist. Radiation optimization: All CT scans at this facility use at least one of these dose optimization techniques: automated exposure control; mA and/or kV adjustment per patient size (includes targeted exams where dose is matched to clinical indication); or iterative reconstruction. Contrast material: ISOVUE; Contrast volume: 100 ml; Contrast route: INTRAVENOUS (IV); COMPARISON: CT ANGIO NECK 01/21/2023 12:08 PM FINDINGS: Right common carotid artery: No stenosis. No dissection or occlusion. Right internal carotid artery: No stenosis of the extracranial segment. No dissection or occlusion. Right external carotid artery: No occlusion or stenosis of the origin. Left common carotid artery: There is atherosclerotic disease of the left CCA re-identified with mild narrowing. Left internal carotid artery: No stenosis of the extracranial segment. No dissection or occlusion. Left external carotid artery: No occlusion or stenosis of the origin. Right vertebral artery: No stenosis. No dissection or occlusion. Left vertebral artery: The left vertebral artery is dominant. Pulmonary arteries: There is enlargement of the main pulmonary artery re-identified, consistent with pulmonary arterial hypertension. Thyroid: The left lobe of the thyroid appears to be absent. Soft tissues: Normal. No significant soft tissue swelling. Bones/joints: There are degenerative changes of the spine. Lungs: There are mosaic attenuation alveolar infiltrates which can be seen with airways disease. Other findings: There is partial visualization of a pacemaker in place from a left-sided approach. IMPRESSION: 1. There is no cervical arterial stenosis or occlusion. 2. Findings consistent with pulmonary arterial hypertension not fully assessed. REFERENCES: NASCET CRITERIA. The degree of stenosis in the cervical segment of the internal carotid artery is based on NASCET criteria. Normal is no stenosis. Mild is less than 50% stenosis. Moderate is 50-69% stenosis. Severe is 70% to 99% stenosis. Total occlusion is no detectable patent lumen.
--- NOTE | 2023-07-03 05:47 | CT_ITS ---
PROCEDURE INFORMATION: Exam: CTA Head With Contrast, Arteriography Exam date and time: 07/03/2023 6:03 AM Age: 72 years old Clinical indication: Stroke-like symptoms; Altered mental status/memory loss; Additional info: Possible stroke TECHNIQUE: Imaging protocol: Computed tomographic angiography of the head with contrast. Exam focused on the arteries. 3D rendering (Not supervised by radiologist): MIP and/or 3D reconstructed images were created by the technologist. Radiation optimization: All CT scans at this facility use at least one of these dose optimization techniques: automated exposure control; mA and/or kV adjustment per patient size (includes targeted exams where dose is matched to clinical indication); or iterative reconstruction. Contrast material: ISOVUE; Contrast volume: 100 ml; Contrast route: INTRAVENOUS (IV); COMPARISON: CT ANGIO HEAD 01/21/2023 12:08 PM FINDINGS: ANTERIOR CIRCULATION: Right internal carotid artery: There is atherosclerotic disease involving the right cavernous ICA without narrowing. Right middle cerebral artery: No occlusion or significant stenosis. No aneurysm. Right anterior cerebral artery: No occlusion or significant stenosis. No aneurysm. Left internal carotid artery: There is atherosclerotic disease involving the left cavernous ICA without narrowing. Left middle cerebral artery: No occlusion or significant stenosis. No aneurysm. Left anterior cerebral artery: No occlusion or significant stenosis. No aneurysm. POSTERIOR CIRCULATION: Right vertebral artery: No occlusion or significant stenosis. No aneurysm. Left vertebral artery: No occlusion or significant stenosis. No aneurysm. Basilar artery: No occlusion or significant stenosis. No aneurysm. Right posterior cerebral artery: No occlusion or significant stenosis. No aneurysm. Left posterior cerebral artery: No occlusion or significant stenosis. No aneurysm. Brain: Reported separately. Cerebral ventricles: Reported separately. Bones/joints: No acute fracture. Soft tissues: Unremarkable. IMPRESSION: No large vessel stenosis or occlusion.
--- NOTE | 2023-07-03 05:48 | XR_ITS ---
PROCEDURE INFORMATION: Exam: XR Chest Exam date and time: 07/03/2023 6:03 AM Age: 72 years old Clinical indication: Shortness of breath; Additional info: SOB TECHNIQUE: Imaging protocol: Radiologic exam of the chest. Views: 1 view. COMPARISON: CR XR CHEST PORTABLE 01/26/2023 8:29 AM FINDINGS: Tubes, catheters and devices: There is a pacemaker in place from a left-sided approach. Lungs: No consolidation. Pleural spaces: No pleural effusion. No pneumothorax. Heart/Mediastinum: The heart is mildly enlarged. There is prominence of the pulmonary arteries unchanged. Bones/joints: Unremarkable for age. IMPRESSION: 1. No evidence of active pulmonary disease. 2. A followup PA and lateral radiograph is recommended when the patient is clinically able.
[2023-07-03 05:50] VITALS: BMI 35.5
--- NOTE | 2023-07-03 05:54 | HMH.EDGENADL ---
Discharge Plan Disposition Patient Disposition: Home, Self-Care Prescriptions Prescriptions: No Action bupropion HCl 300 mg tablet extended release 24 hr 300 mg PO DAILY Patient Comments: TAKE 1 TABLET BY MOUTH ONCE DAILY bupropion HCl 150 mg tablet extended release 24 hr 150 mg PO DAILY Patient Comments: TAKE 1 TABLET BY MOUTH ONCE DAILY FOR 90 DAYS acyclovir 200 mg capsule 200 mg PO TID PRN (Reason: unknown) Xarelto 20 mg tablet 20 mg PO HS 90 Days Qty: 90 0RF amlodipine 5 mg tablet 5 mg PO DAILY 90 Days Qty: 90 3RF aspirin 81 mg tablet,chewable 81 mg PO DAILY 90 Days Qty: 90 3RF clopidogrel 75 mg tablet 75 mg PO DAILY 90 Days Qty: 90 3RF Jardiance 10 mg tablet 10 mg PO DAILY 90 Days Qty: 90 3RF metoprolol tartrate 50 mg tablet 50 mg PO BID 90 Days Qty: 180 3RF atorvastatin 10 mg tablet 10 mg PO HS 90 Days Qty: 90 3RF losartan 50 mg tablet 50 mg PO BID 90 Days Qty: 180 3RF Hold Instructions: Resume on 01/29/23. furosemide 40 mg tablet 40 mg PO DAILY 90 Days Qty: 90 3RF Hold Instructions: Resume on 01/29/23. ipratropium-albuterol 0.5 mg-3 mg(2.5 mg base)/3 mL solution for nebulization 1 ml INHALATION QIDP PRN (Reason: Breathing Problems) Patient Comments: USE 1 AMPULE IN NEBULIZER 4 TIMES DAILY sertraline 100 mg tablet 200 mg PO HS levothyroxine 75 mcg tablet 75 mcg PO DAILY zafirlukast 20 mg tablet 20 mg PO BID fluticasone propionate 50 mcg/actuation spray,suspension 2 spray intranasal DAILY Rx Instructions: Two sprays into each nostril once daily budesonide-formoterol [Symbicort] 160-4.5 mcg/actuation HFA aerosol inhaler 2 puff INHALATION BID Patient Comments: INHALE 2 PUFFS BY MOUTH TWICE DAILY Spiriva Respimat 1.25 mcg/actuation mist 2 puff INHALATION DAILY Patient Comments: INHALE 2 SPRAY(S) BY MOUTH ONCE DAILY cyanocobalamin (vitamin B-12) [Vitamin B-12] 500 mcg Lozenge 1,000 mcg PO AM Dupixent Syringe 300 mg/2 mL Syringe 300 mg SQ DIRECTED Rx Instructions: q 2 weeks Referrals Follow up/Referrals: Michele Jimenez MD [Primary Care Provider] - See instructions Clinical Impressions Clinical Impression: Brain TIA, AMS (altered mental status), Leukocytosis Stand Alone Forms Stand Alone Forms: Transfer Record - ED Instructions Patient Instructions: DI for Altered Mental Status Discharge ED Provider: Himanshu Don General Adult HPI General Chief complaint: Altered Mental Status Stated complaint: AMS Time Seen by Provider: 07/03/23 05:47 History of Present Illness HPI narrative: 72-year-old female, history of A-fib, prior CVA with no residual deficits, coronary artery disease status post stents, COPD, hypertension, hyperlipidemia, on dual antiplatelet therapy and Xarelto presents with altered mental status, speech difficulties and balance difficulties. Last known normal midnight when she was seen by to be normal. At approximately 4 AM he awoke and found her slumped to the side. She was having difficulty expressing herself, was not necessarily slurred, but was talking out of her head . They attempted to ambulate to the bathroom, but she was very unsteady on her feet and off balance. She was too weak to get off the toilet. reports that she had a had a stroke in the past and received tPA at that time for similar symptoms. Reports no residual deficits from the initial stroke. Family reports that she is supposed to be having an elective cholecystectomy next month. Patient denies any chest pain abdominal pain or shortness of breath at this time. Related Data Home Medications Medication Instructions Recorded Confirmed budesonide-formoterol HFA 160 2 puff inhalation BID Breathing 04/16/22 07/03/23 mcg-4.5 mcg/actuation aerosol problems inhaler (Symbicort) fluticasone propionate 50 2 spray intranasal DAILY Allergy 04/16/22 07/03/23 mcg/actuation nasal symptoms spray,suspension ipratropium 0.5 mg-albuterol 3 mg 1 ml inhalation QIDP PRN Breathing 04/16/22 07/03/23 (2.5 mg base)/3 mL nebulization Problems soln levothyroxine 75 mcg tablet 75 mcg PO DAILY Thyroid 04/16/22 07/03/23 sertraline 100 mg tablet 200 mg PO HS Mood 04/16/22 07/03/23 tiotropium bromide 1.25 2 puff inhalation DAILY Breathing 04/16/22 07/03/23 mcg/actuation mist for inhalation problems (Spiriva Respimat) zafirlukast 20 mg tablet 20 mg PO BID Asthma 04/16/22 07/03/23 cyanocobalamin (vitamin B-12) 500 1,000 mcg PO AM supplement 04/29/22 07/03/23 mcg lozenges (Vitamin B-12) dupilumab 300 mg/2 mL subcutaneous 300 mg SQ DIRECTED COPD 04/29/22 07/03/23 syringe (Dupixent) bupropion HCl 300 mg 24 hr tablet, 300 mg PO DAILY Mood 05/09/22 07/03/23 extended release bupropion HCl 150 mg 24 hr tablet, 150 mg PO DAILY Mood 11/29/22 07/03/23 extended release acyclovir 200 mg capsule 200 mg PO TID PRN unknown 02/05/23 07/03/23 Previous Rx's Medication Instructions Recorded amlodipine 5 mg tablet 5 mg PO DAILY 90 days #90 tabs 02/05/23 aspirin 81 mg chewable tablet 81 mg PO DAILY 90 days #90 tabs 02/05/23 atorvastatin 10 mg tablet 10 mg PO HS High cholesterol 90 02/05/23 days #90 tabs clopidogrel 75 mg tablet 75 mg PO DAILY 90 days #90 tabs 02/05/23 empagliflozin 10 mg tablet 10 mg PO DAILY 90 days #90 tabs 02/05/23 (Jardiance) furosemide 40 mg tablet 40 mg PO DAILY Fluid / Swelling 90 02/05/23 days #90 tabs losartan 50 mg tablet 50 mg PO BID High blood pressure 02/05/23 90 days #180 tabs metoprolol tartrate 50 mg tablet 50 mg PO BID High blood pressure 02/05/23 90 days #180 tabs rivaroxaban 20 mg tablet (Xarelto) 20 mg PO HS blood thinner/afib 90 02/05/23 days #90 tabs Allergies Allergy/AdvReac Type Severity Reaction Status Date / Time levofloxacin [From Levaquin] Allergy Verified 06/12/23 14:12 [facility] Disclaimer: The information contained in this section may have been updated after the patient was seen, as this information can be updated by other users. Medical History Acute exacerbation of chronic obstructive airways disease Atrial fibrillation COPD (chronic obstructive pulmonary disease) Current use of remote computer terminal operator anticoagulation CVA (cerebral vascular accident) History of left heart catheterization Hyperlipidemia Hypertension Hypothyroidism Hypothyroidism Melanoma Pacemaker at end of battery life Vertigo Surgical History H/O dilation and curettage H/O laparoscopy H/O partial thyroidectomy H/O: hysterectomy History of colonoscopy History of tonsillectomy Previous back surgery Tubal ligation status Family History Father Lung cancer Mother Parkinsons Sister Kidney disease Social History Smoking Status: Never smoker alcohol intake: never current occupational status: retired Travel in the last 8 weeks: None ROS Obtained: Yes All systems reviewed & no additional complaints except as documented Physical Exam General General appearance: alert Comment: Confused appearing Head Head exam: atraumatic and normocephalic Eye Eye exam: Present normal appearance, PERRL and EOMI ENT ENT exam: Present mucous membranes dry and normal external ear exam Neck Neck exam: Present normal inspection and full ROM Chest Chest inspection: Present normal inspection and symmetric chest wall rise; Absent tenderness Respiratory Respiratory exam: Present normal lung sounds bilaterally and other (Tachypnea); Absent respiratory distress Cardiovascular Cardiovascular exam: Present normal rhythm and Pacemaker w/paced rhythm Abdominal Exam Abdominal exam: Present soft and distention; Absent tenderness or guarding Extremities Exam Extremities exam: Present normal inspection; Absent edema or joint swelling Back Exam Back exam: Present normal inspection; Absent tenderness Neurological Exam Neurological exam: Present alert and oriented X3; Absent motor sensory deficit Psychiatric Psychiatric exam: Present normal affect and normal mood Skin Skin exam: Present warm, dry and normal color Lymphatic Lymphatic Findings: no adenopathy Medical Decision Making Medical Records Medical records reviewed: Yes I reviewed the patient's medical records. Tae Inquiry Pt receiving controlled substance: No Tae was queried for this patient: No Vital Signs: 07/03/23 05:38 Temperature 98.1 F Temperature Source Oral Pulse Rate [Left] 70 Respiratory Rate 20 Blood Pressure [Right Arm] 156/52 H Blood Pressure Mean [Right Arm] 86 Blood Pressure Source [Right Arm] Automatic Cuff Blood Pressure Position [Right Arm] Sitting 02 Sat by Pulse Oximetry 93 L Oxygen Delivery Method Nasal Cannula Oxygen Flow Rate (LPM) 2 Lab Data Lab results reviewed: Yes I reviewed the patient's lab results. Lab Results 07/03/23 05:40: WBC 23.2 H*, RBC 5.04, Hgb 15.1, Hct 45.7, MCV 90.6, MCH 29.9, MCHC 33.0, RDW 15.4, Plt Count 292, MPV 9.8, Neut % (Auto) 92.8 H, Lymph % (Auto) 2.6 L, Arroy[place] % (Auto) 4.3, Eos % (Auto) 0.1, Baso % (Auto) 0.2, Neut # (Auto) 21.5 H, Lymph # (Auto) 0.6 L, Ar[place] # (Auto) 1.0, Eos # (Auto) 0.0, Baso # (Auto) 0.1, Total Counted 100, Neutrophils % (Manual) 92 H, Lymphocytes % (Manual) 3 L, Monocytes % (Manual) 5, Platelet Estimate Normal, RBC Morphology Normal, D-Dimer 0.84 H, Sodium 137, Potassium 4.0, Chloride 108 H, Carbon Dioxide 18 L, Anion Gap 15.0, BUN 20 H, Creatinine 1.00, Estimated Creat Clear 78, Estimated GFR 54 L, Est GFR ( Amer) 66, Glucose 192 H, Calcium 9.2, Total Bilirubin 0.7, AST 44 H, ALT 33, Alkaline Phosphatase 134 H, Troponin I < 0.01, NT-Pro-B Natriuret Pep 1520 H, Total Protein 8.0 D, Albumin 4.0, Globulin 4.0 H, Albumin/Globulin Ratio 1.0 L 07/03/23 05:49: VBG pH 7.42 H, VBG pCO2 26.0 L, VBG pO2 145.5 H, VBG HCO3 16.3 L, VBG Total CO2 17.1 L, VBG O2 Saturation 99.2 H, VBG Base Excess -8.2 L 07/03/23 06:10: Urine Color Yellow, Urine Appearance Clear, Urine pH 6.5, Ur Specific [place] 1.010, Urine Protein Trace, Urine Glucose (UA) 2+, Urine Ketones Negative, Urine Blood Negative, Urine Nitrate Negative, Urine Bilirubin 1+ A, Urine Urobilinogen 1.0, Ur Leukocyte Esterase Negative 07/03/23 05:40 07/03/23 05:40 Orders (Tests/Meds): ED MEDICATIONS Discontinued Medications Generic Name Dose Route Start Last Admin Trade Name Pretty PRN Reason Stop Dose Admin Iopamidol 100 ml 07/03/23 06:14 07/03/23 06:15 Iopamidol-370 (76%);100ml Bottle IV 07/03/23 06:15 100 ml ONCE ONE Administration Sodium Chloride 10 ml 07/03/23 06:14 07/03/23 06:15 Sodium Chloride 0.9% 10ml Syr (Rad Only) IV 07/03/23 06:15 10 ml ONCE ONE Administration ORDERS Category Date Time Status CT angio head Stat Cat Scan 07/03/23 05:[address] angio neck Stat Cat Scan 07/03/23 05:[address] head/brain wo con Stat Cat Scan 07/03/23 05:47 Taken CXR --portable [XR chest portable] Stat Exams 07/03/23 05:48 Completed Acetaminophen Stat Lab 07/03/23 05:40 Received BNP [Brain Natriuretic Peptide] Stat Lab 07/03/23 05:40 Completed CBC w/Auto Diff [Complete Blood Count Auto Diff] Stat Lab 07/03/23 05:40 Completed CMP [Comprehensive Metabolic Panel] Stat Lab 07/03/23 05:40 Completed D-Dimer Stat Lab 07/03/23 05:40 Completed Rapid PCR Covid and Flu A/B Stat Lab 07/03/23 05:54 Received Salicylate Stat Lab 07/03/23 05:40 Received Troponin I Q3H Lab 07/03/23 05:40 Completed Troponin I Q3H Lab 07/03/23 09:00 Ordered UA [Urinalysis and Microscopic] Stat Lab 07/03/23 06:10 Results VBG [Venous Blood Gas] Stat RT 07/03/23 05:49 Completed EKG Request [ECG Request] Stat Y 07/03/23 06:11 Ordered Medical Decision Narrative: 72-year-old female, history of A-fib, prior CVA with no residual deficits, coronary artery disease status post stents, COPD, hypertension, hyperlipidemia, on dual antiplatelet therapy and Xarelto presents with altered mental status, speech difficulties and balance difficulties. Last known normal midnight. Patient arrives at approximately 530. history was obtained via conversation with EMS, patient, family. On arrival, patient is afebrile, mildly tachypneic but satting appropriately on room air. Full physical exam performed and significant for intial NIH of 4 (1+ level of consciousness, 1 for arm drift left and right, 1 for aphasia). Patient sent emergently to CT scanner for CT head CTA head neck Differential includes but is not limited to intracranial bleeding, intracranial stroke, TIA, electrolyte derangement, intoxication, withdrawal, Workup initiated including CT head, CTA head neck, chest x-ray, EKG, broad-spectrum laboratory analysis. On re-evaluation, patient [remains afebrile, HD stable.] Continues to improve per . On my assessment, she is now an NIH of 0. Laboratory workup independently interpreted by me and significant for leukocytosis with white count of 23, mild respiratory alkalosis on VBG. D-dimer negative per years criteria. Initial troponin negative. Imaging independently interpreted by me and significant for no acute intracranial bleeding, no large vessel occlusion, no significant mass.. See radiology read for full review of final results. EKG independently interpreted by me and significant for ventricular paced rhythm, rate of 69, no concerning ST changes. tPA was considered, but deemed inappropriate as patient was outside of tPA window and is on Xarelto. Given patient history, exam and workup, patient's presentation most likely represents possible TIA. Underlying etiology of transient symptoms remains unclear. Interactive discussion was had with the utilization coordinator on-call at [facility]. They accepted the patient in transfer for further assessment. Procedures Risk/Benefits of Procedure(s) Were Explained: Yes Critical Care Critical Care Time Critical Care Time: Yes Attestation: On 07/03/23, the high probability of a clinically significant, sudden or life threatening deterioration of the following system(s) neurologic required my full and direct attention, intervention and personal management. The time I documented below is in addition to time spent performing reported procedures but includes the following listed in this critical care notation. Total Time Total Critical Care Time: 35
[2023-07-03 05:57] LABS: Basophils # 0.1 K/mm3 (0-0.2); Basophils % 0.2 % (0.1-2.0); Eosinophils % 0.1 % (0.1-12.0); Hematocrit 45.7 % (37.0-47.0); Hemoglobin 15.1 g/dL (12.2-16.2); Lymphocytes # 0.6 K/mm3 (0.7-4.5); Lymphocytes % 2.6 % (10-50); Mean Corpuscular Hemoglobin 29.9 pg (27.0-31.2); Mean Corpuscular Volume 90.6 fl (81-99); Mean Platelet Volume 9.8 fl (7.4-10.4); Monocytes % 4.3 % (1.7-9.3); Neutrophils # 21.5 K/mm3 (1.8-7.8); Neutrophils % 92.8 % (37.0-80.0); Platelet Count 292 K/mm3 (142-424); Red Blood Count 5.04 M/mm3 (4.20-5.40); Red Cell Distribution Width 15.4 % (11.5-17.5); White Blood Count 23.2 K/mm3 (4.8-10.8)
[2023-07-03 05:58] LABS: Coronavirus 19, PCR Not Detected (NotDetected); Influenza A, PCR Not Detected (NotDetected); Influenza B, PCR Not Detected (NotDetected)
[2023-07-03 05:59] LABS: Chloride 108 mmol/L (98-107); Sodium 137 mmol/L (136-145)
[2023-07-03 06:00] LABS: MANUAL DIFFERENTIAL MANUAL DIFFERENTIAL (MANUAL DIFF)
[2023-07-03 06:01] LABS: VBG Base Excess -8.2 mmol/L (-2.4-2.3); VBG HCO3 16.3 mmol/L (23-30); VBG Oxygen Saturation 99.2 % (50-70); VBG PH 7.42 mmol/L (7.31-7.41); VBG PO2 145.5 mmol/L (28-40); VBG Total CO2 17.1 mmol/L (23-27)
[2023-07-03 06:02] LABS: Alanine Aminotransferase 33 U/L (12-78); Alkaline Phosphatase 134 U/L (38-126); Aspartate Amino Transferase 44 U/L (14-36); Bilirubin,Total 0.7 mg/dl (0.2-1.3); Blood Urea Nitrogen 20 mg/dl (7-17); Carbon Dioxide 18 mmol/L (22.0-30.0); Creatinine Clearance Estimated 78 mL/min (50-200); Estimated Glomerular Filt Rate 54 ml/min (>60); GFR (African American) 66 ML/MIN (>60)
[2023-07-03 06:03] LABS: Calcium 9.2 mg/dl (8.4-10.2); Glucose 192 mg/dl (74-100)
[2023-07-03 06:07] LABS: D-Dimer 0.84 ug/mL (0.0-0.5)
[2023-07-03 06:12] LABS: NT Pro Brain Natriuretic Pep. 1520 pg/mL (0-125)
[2023-07-03 06:13] LABS: Lymphocytes % 3 % (10-50); Monocytes % 5 % (2-9); Neutrophils % 92 % (42-76); Platelet Estimate Normal; RBC Morphology Normal; Total Cells Counted 100
[2023-07-03 06:14] LABS: Troponin I < 0.01 ng/ml (0.00-0.034)
[2023-07-03] MEDS: IOPAMIDOL-370 (76%);100ML BOTTLE 100 ML IV (06:15)
[2023-07-03] MEDS: SODIUM CHLORIDE 0.9% 10ML SYR (RAD ONLY) 10 ML IV (06:15)
[2023-07-03 06:16] LABS: Microscopic, Urine URINE MICROSCOPIC (MICROSCOPIC)
[2023-07-03 06:19] LABS: Appearance,Urine CLEAR (Clear); Blood, Urine Negative (Negative); Color,Urine YELLOW (Yellow); Glucose,Urine (UA) 2+ (Negative); Ketones,Urine Negative (Negative); Leukocyte Esterase,Urine Negative (Negative); Nitrate,Urine Negative (Negative); PH,Urine 6.5 (5.0-8.5); Protein,Urine TRACE (Negative)
[2023-07-03 06:22] LABS: Bilirubin,Urine 1+ (Negative)
--- NOTE | 2023-07-03 06:22 | ECG_ITS ---
APPROVED REPORT Exam: Resting ECG HR:69 bpm ECG Measurements Heart Rate 69 AXES QRSd 133 QRS 168 QT 446 T 14 QTc 466 Conclusion ELECTRONIC VENTRICULAR PACEMAKER ABNORMAL RHYTHM ECG UNCONFIRMED REPORT Electronically signed by : Trev Basilio MD 07/04/2023 14:37:43
--- NOTE | 2023-07-03 06:29 | PC.NURSE ---
[facility] calling [facility] about transfering pt. CR
[2023-07-03 06:31] VITALS: BP 153/63; PULSE 70; RESP 13; O2SAT 93
[2023-07-03 07:00] VITALS: BP 135/68; PULSE 70; RESP 21; O2SAT 93
[2023-07-03 07:08] LABS: Acetaminophen < 10 ug/ml (10-30); Salicylate < 1.0 mg/dL (2.0-20.0)
[2023-07-03 07:13] LABS: Bacteria,Urine Trace /lpf; RBC,Urine Occasional #/hpf (0-3)
--- NOTE | 2023-07-03 07:13 | PC.NURSE ---
Pt going to [id number] report called to Marnie BANDA
[2023-07-03 07:31] VITALS: BP 151/66; PULSE 70; RESP 16; O2SAT 95
--- NOTE | 2023-07-03 07:59 | PC.NURSE ---
Pt and family updated about poc
--- NOTE | 2023-07-03 08:15 | PC.NURSE ---
Assisted patient to bedside commode.
--- NOTE | 2023-07-03 08:35 | PC.NURSE ---
EMS states they are on their way to transport pt to
--- NOTE | 2023-07-03 08:36 | PC.NURSE ---
FAmily updated about EMS coming to transport
[2023-07-03 09:10] VITALS: BP 153/84; PULSE 70; RESP 22; TEMP 36.7; O2SAT 96
== END 2023-07-03 09:13 | disposition home or self-care (01) ==
PROVIDERS: Emergency Provider Emergency Medicine; PCP Family Medicine
DX: G45.9 Transient cerebral ischemic attack, unspecified (principal); R41.82 Altered mental status, unspecified; D72.829 Elevated white blood cell count, unspecified; I48.91 Unspecified atrial fibrillation; I25.10 Atherosclerotic heart disease of native coronary artery without angina pectoris; I10 Essential (primary) hypertension; J44.9 Chronic obstructive pulmonary disease, unspecified; E78.5 Hyperlipidemia, unspecified; E03.9 Hypothyroidism, unspecified; Z86.73 Personal history of transient ischemic attack (TIA), and cerebral infarction without residual deficits; Z79.01 Long term (current) use of anticoagulants; Z79.02 Long term (current) use of antithrombotics/antiplatelets; Z95.0 Presence of cardiac pacemaker
CPT/HCPCS: 70450; 70496; 70498; 71045; 80053; 80329; 81001; 82803; 83880; 84484; 85007; 85025; 85378; 87636; 93005; 99285; 99291; Q9967